=== PATIENT | male | born 1940 | race Caucasian/White ===

== ENCOUNTER 2016-05-20 14:07 | Inpatient (IN) | payer MEDICARE, OTHER ==
[~2016-05-20] VITALS: Ht 177.8 cm; Wt 111.0 kg
[~2016-05-20 14:07] MED LIST: CETI1TAB PO; CITA40TA13 PO; FRSM80T PO; POTA20TA7 PO; Piper-Tazo 3.375 Gm/50 mL D5W Minibag Plus - Q8H over 4 hrs IV ONE; Propofol 10,000 mCg/mL 20 mL Inj ONE; Rocuronium 10 mg/mL 5 mL Inj ONE; SIMV40TA5 PO; Succinylcholine Chloride 20 mg/mL 5 mL Inj ONE; Vancomycin Inj 1,750 MG in Dextrose 5% 500 ML IV ONE; [UNRECOGNIZED DRUG - CODE] PO; fentaNYL-PF 50 mCg/mL 2 mL Inj ONE
[2016-05-20 14:10] VITALS: BP 142/72; PULSE 104; RESP 32; O2SAT 95
--- NOTE | 2016-05-20 14:55 | ED.REPORT ---
HPI-Dyspnea / Wheezing Date of Service May 20, 2016 ED Provider: Asher Kincaid DO 75 year old male with a history of lung cancer treated with radiation, MAHNAZ on CPAP, diabetes and dyslipidemia who presents to the ER accompanied by family due to shortness of breath and fever that has been progressively worsening since last night. Yesterday he had a non-productive cough and multiple episodes of vomiting. Pt denies dysuria, diarrhea, chest pain and abd pain. Pt is a poor historian. Nursing Notes Stated Complaint: TROUBLE BREATHING Chief Complaint: Respiratory Distress Nursing Notes Reviewed: Yes Allergies: Coded Allergies: iodine (Verified Allergy, Severe, ANAPHYLAXIS, 05/20/16) Uncoded Allergies: Iodine (Allergy, Severe, ANAPHYLAXIS, 08/09/04) No Known Allergies (Allergy, Severe, 02/25/04) Scheduled Citalopram (Citalopram) 40 Mg Tablet 40 MG PO QAM Cyanocobalamin (Vitamin B-12) (Vitamin B-12) 2,000 Mcg Tablet 2,000 MCG PO DAILY Potassium Chloride ER (Klor-Con M20) 20 Meq Tablet 10 MEQ PO DAILY General Time Seen by MD: 14:52 Chief Complaint Shortness of breath Hx Obtained From: Patient, Other family... Arrived By: Walk-in Onset Occurred: Yesterday Symptom Duration: Since onset Location: : None Associated with: Reports: Cough, Vomiting Pertinent Negative: Relieved by nothing Past Medical History Past Medical History 1. Diabetes Type 2 2. Obstructive sleep apnea on CPAP 3. Dyslipidemia 4. Macular degeneration 5. Morbid obesity (BMI 54.4) 6. Former smoker 7. Depression 8. Hx of sepsis 9. Hx of pneumonia 10. 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 GI: Reports: Vomiting, Denies: Abdominal pain, Diarrhea Physical Exam Initial Vital Signs Vital Signs (First) Date Time Temp Pulse Resp B/P Pulse Ox O2 Delivery O2 Flow Rate FiO2 05/20/16 14:10 37.4 104 32 142/72 95 Room Air 05/20/16 15:57 2 Initial VS: Reviewed Head / Eyes: Atraumatic, Normocephalic, PERRL ENT: Mucous membranes moist, Conjunctiva normal, No scleral icterus Abdomen / GI: Soft, Non-tender, No distention Extremities: Vascular intact, Neuro intact Skin: Warm (warm to the touch), Dry, No cyanosis Neurologic: Alert, Oriented, Nonfocal General/Constitutional: Awake, Alert Distress / Hydration: Positive: Distress mild Neck: Atraumatic, Full range of motion tachypneic Diffusely diminished breath sounds Cardiovascular: Regular rhythm, No murmurs, Peripheral circulation NL Heart Rate / Rhythm: Positive: Tachycardia Interpretation & Diagnostics Lab Results Interpretation Result Diagram: 05/20/16 1455 05/20/16 1455 Test 05/20/16 14:55 05/20/16 16:52 White Blood Count 15.9th/mm3 (3.8-10.1) Red Blood Count 4.30mil/mm3 (4.40-5.80) Hemoglobin 12.3g/dL (13.8-17.2) Hematocrit 38.0% (41.0-50.0) Mean Corpuscular Volume 88.4fL (81-100) Mean Corpuscular Hemoglobin 28.6pg (27.0-35.0) Mean Corpuscular Hemoglobin Concent 32.4% (32.0-37.0) Red Cell Distribution Width 14.8% (12.3-15.4) Platelet Count 246bil/L (150-400) Neutrophils (%) (Auto) 89.1% (40-74) Lymphocytes (%) (Auto) 1.4% (14-46) Monocytes (%) (Auto) 9.1% (4-12) Eosinophils (%) (Auto) 0% (0-5) Basophils (%) (Auto) 0.1% (0-3) Sodium Level 128mEq/L (134-144) Potassium Level 4.0mEq/L (3.5-5.2) Chloride Level 93mEq/L (97-108) Carbon Dioxide Level 19mmol/L (18-29) Blood Urea Nitrogen 17mg/dL (8-27) Creatinine 1.63mg/dL (0.76-1.27) Estimat Glomerular Filtration Rate 44mL/min (>59) Glucose Level 144mg/dL (60-99) Calcium Level 8.9mg/dL (8.5-10.1) Total Bilirubin 0.9mg/dL (0.0-1.2) Aspartate Amino Transf (AST/SGOT) 19U/L (0-50) Alanine Aminotransferase (ALT/SGPT) 9U/L (0-44) Alkaline Phosphatase 76U/L (25-160) Troponin T < 0.010ug/L (0.0-0.011) Pro-B-Type Natriuretic Peptide 947.5pg/mL (0-486) Total Protein 7.0g/dL (6.4-8.4) Albumin 3.0g/dL (3.4-5.0) Procalcitonin 0.74ng/mL (0.00-0.08) Urine Color Dark yellow (YELLOW) Urine Appearance Slightly cloudy Urine pH 8.0 (5.0-8.0) Urine Specific [place] 1.015 (1.003-1.035) Urine Protein 30mg/dL (NEG,TRACE) Urine Glucose (UA) Negativemg/dL (NEGATIVE) Urine Ketones Negativemg/dL (NEGATIVE) Urine Occult Blood Small (NEGATIVE) Urine Nitrite Negative (NEGATIVE) Urine Bilirubin Negative (NEGATIVE) Urine Urobilinogen Normalmg/dL (NORMAL) Urine Leukocyte Esterase Large (NEGATIVE) Urine RBC 3-10/hpf (0-2) Urine WBC Packed/hpf (0-5) Urine Epithelial Cells Few/hpf (NONE-MOD) Urine Crystals Amorphous phosphates Urine Bacteria Moderate/hpf (NONE-FEW) Urine Hyaline Casts None/lpf (NONE) Urine Granular Casts None seen (NONE SEEN) Urine Waxy Casts None seen (NONE SEEN) Urine Red Blood Cell Casts None seen (NONE SEEN) Urine White Blood Cell Casts None seen (NONE SEEN) Urine Mucus None seen (None Seen) Urine Trichomonas None seen (NONE SEEN) Urine Yeast None (NONE SEEN) Urine Culture Reflexed Indicated General Lab Results Interp 1: Labs reviewed ECG Interpretation ECG Interpretation: Multiple premature complexes Inferior infarct, old Time: 14:43 Interpreted by: ED physician Rhythm / Conduction: Tachycardia (rate 100) X-Ray Chest Interpretation Chest Xray Interpretation: IMPRESSION: A cavitary mass in the right mid lung medially. No acute cardiopulmonary disease. Dictated by: Rick Salcedo M.D. on 05/20/2016 at 15:45 View: Portable, 1 view Interpretation / Wet Read by: Interpret - Radiologist CT Chest Interpretation IMPRESSION: 1. 3 mm right upper lobe pulmonary nodule which is demonstrated stability when compared to study dated 01/03/16. Which has demonstrated 5 months of stability. Please see followup guidelines below. 2. Decreased size of the right lower lobe superior segment gas-filled cavitary lesion when compared with the study dated 01/03/16. This finding suggests persistent communication with a subsegmental bronchus. 3. Trace air space opacities within the right middle lobe suggestive of aspiration or infection. 4. Findings suspicious for left hydronephrosis which is new when compared with the prior study. Renal ultrasound or CT KUB would be helpful to further characterize this finding if clinically indicated. Fleischner Society criteria for SOLID lung nodule followup. Nodule size (mm)Low-risk patientHigh-risk [id number] follow-up neededFollow-up at 12 mo; if no change, no further follow-up>[id number] CT at 12 mo; if no change, no further follow-up needed.Initial follow-up CT at 6-12 mo, then 18-24 mo if no change. >6-8Initial follow-up CT at 6-12 mo, then 18-24 mo if no change. Initial follow-up CT at 3-6 mo, then 9-12 mo and 24 mo if no change. >8Follow-up CT at 3, 9, 24 mo. Or PET and/or biopsy.Same as for low-risk pts. Fleischner Society criteria for SUB-SOLID lung nodule followup. Solitary pure ground-glass nodules5 mm or lessNo followup needed. >5 mm3 mo follow-up CT to confirm persistence. Then annual CT for 3 years. Part-solid nodules3 mo follow-up CT to confirm persistence. If persistent with solid component <5 mm, annual CT for at least 3 years. If solid component is 5 mm or more, biopsy or surgical resection. Consider PET-CT for lesions > 10 mm. Multiple sub-solid nodulesPure ground glass nodules [address] at 2 and 4 years. Pure ground glass nodules >5 mm without dominant lesion. [address] to confirm persistence, then annual followup CT for at least 3 years. Dominant nodule(s) with part-solid or solid component. [address] to confirm persistence. If persistent, consider biopsy or surgical resection, rambo if lesions have >5 mm solid component. Dictated by: Alma Burroughs M.D. on 05/20/2016 at 16:06 Study type: Chest CT no contrast Interpretation / Wet Read by: Interpret - Radiologist Re-Eval/Medical Decision Med Decision/Clinical Course Ultimately sepsis from UTI and obstructing kidney stone. Urology is consulted emergently and is planning at this point. The patient's operating room. Patient is admitted. Re-Evaluation/Progress #1: Time of Eval: 15:35 Re-Evaluation/Progress Note: Pt has not been hospitalized recently and has not taken antibiotics recently. Updated pt and family of labs, ECG and imaging results. Recommended admission for pneumonia. Pt understands and agrees with plan. All questions addressed. Re-Evaluation/Progress #2: Time of Eval: 16:40 Re-Evaluation/Progress Note: Updated of imaging results. Consultation #1: Referral / Consult Name: Luiz Dutton MD Consulted With: Hospitalist Call Returned at: 16:50 Fire Truck Driver: Will see patient, Agrees with eval, Agrees with plan, Accepts admit Consultation #2: Referral / Consult Name: Suzette Guevara MD Consulted With: Urology Call Returned at: 17:41 Fire Truck Driver: Requested OR ([id number]) [facility] Counseled Regarding: Diagnosis, Lab results, Need for admission Discharge & Departure Impression: Primary Impression: Sepsis Sepsis type: sepsis due to unspecified organism Qualified Code: A41.9 - Sepsis, unspecified organism Additional Impressions: URI (upper respiratory infection) URI type: unspecified URI Qualified Code: J06.9 - Acute upper respiratory infection, unspecified RODGER (acute kidney injury) UTI (urinary tract infection) Urinary tract infection type: site unspecified Hematuria presence: without hematuria Qualified Code: N39.0 - Urinary tract infection, site not specified Ureteral obstruction Pyelonephritis Disposition: ADMITTED TO HOSPITAL Discharge Condition All VS Reviewed: Yes Referrals: Shalom Noel MD (PCP) Crit Care Except Billable Proc Time Spent: 75-104 minutes Services Performed: Patient management by me, Time spent at bedside, Reviewing test results, Reviewing imaging, Discussing patient care, Documentation in record, Time with fam/surrogate Critical Care Notes: See MDM Scribe Attestation Portions of this note were transcribed by Alyce Simmons. I, (Dr. Asher Kincaid ) personally performed the history, physical exam and medical decision-making; I reviewed and confirmed the accuracy of the information in the transcribed note. Signed by: Alyce Simmons. Nikia, 05/20/2016, [id number] copies to: Shalom Noel MD, Timothy S DO May 20, 2016 14:55 Alyce Simmons May 20, 2016 15:06
[2016-05-20] MEDS ORDERED: 0.9% Sodium Chloride 1,000 ML IV ONE ×2 (15:05→15:55)
[2016-05-20 15:18] LABS: BASOPHILS % (AUTO) 0.1 % (0-3); EOSINOPHILS % (AUTO) 0 % (0-5); MONOCYTES % (AUTO) 9.1 % (4-12); Mean Corpuscular Hemoglobin 28.6 pg (27.0-35.0); Mean Corpuscular Volume 88.4 fL (81-100); NEUTROPHILS % (AUTO) 89.1 % (40-74); Platelet Count 246 bil/L (150-400)
[2016-05-20] MEDS ORDERED: cefTRIAXone Inj 2,000 MG in Dextrose 5% Minibag Plus 50 ML IV ONE (15:40)
[2016-05-20] MEDS ORDERED: Azithromycin Inj 500 MG in Dextrose 5% w/Vial Mate 250 ML IV ONE (15:40)
--- NOTE | 2016-05-20 15:48 | DRSVH ---
PROCEDURE: X-RAY CHEST ONE VIEW, PORTABLE ([id number]) INDICATIONS: shortness of breath TECHNIQUE: One view of the chest was acquired. COMPARISON: [facility], CT, CT CHEST WO CON, 01/03/2016, 16:48. [facility], CR, CHEST 1VW (PORTABLE), 03/26/2013, 2:12. FINDINGS: Surgical changes and devices: None. Lungs and pleura: There is a cavitary density in the right midlung medially, better seen on the [facility] CT on 2015. No pleural effusions or pneumothorax. Left lung is clear. Mediastinum: Mediastinal contours appear normal. Heart size is normal. Bones and chest wall: No suspicious bony lesions. Overlying soft tissues appear unremarkable. IMPRESSION: A cavitary mass in the right mid lung medially. No acute cardiopulmonary disease. Dictated by: Rick Salcedo M.D. on 05/20/2016 at 15:45 Approved by: Rick Salcedo M.D. on 05/20/2016 at 15:47
[2016-05-20] MEDS ORDERED: 0.9% Sodium Chloride 1,000 ML IV SCH ×2 (15:55→16:53)
[2016-05-20 15:57] VITALS: BP 107/46; PULSE 96; RESP 24; O2SAT 94
[2016-05-20 16:00] LABS: TROPONIN T < 0.010 ug/L (0.0-0.011)
--- NOTE | 2016-05-20 16:18 | DRSVH ---
PROCEDURE: CT CHEST WITHOUT CONTRAST ([id number]) INDICATIONS: cough, sputum, leukocytosis TECHNIQUE: Noncontrast 5 mm thick sections acquired from the pulmonary apices to the posterior costophrenic angl es. 7 mm thick coronal and sagittal MIP reformats were then acquired. For radiation dose reduction, the following was used: automated exposure control, adjustment of mA and/or kV according to patient size. COMPARISON: [facility], CT, CT CHEST WO CON, 01/03/2016, 16:48. FINDINGS: Image quality: Excellent. Lungs and pleura: An ill-defined 3 mm diameter pulmonary nodule is redemonstrated at the right apex u nchanged from the study dated 01/03/16 (series 3, image 13). The cavitary mass within the superior se gment of the right lower lobe has decreased in size and now measures 5.4 x 6.9 cm. This lesion measur ed 8.4 x 8.9 cm in the same plane on the study dated 01/03/16. There is persistent gas within this ca vitary lesion and communication with an adjacent bronchus is likely present. There is trace centrilob ular emphysema with an apical predominance. Trace air space opacities are present within the right mi ddle lobe which are new when compared with the prior study. No pneumothorax. There is a trace right p leural effusion which is new when compared with the prior study. Mediastinum: Heart size is normal. No pericardial effusion. No mediastinal adenopathy by size crit eria. Thoracic aorta and central pulmonary arteries are normal in size. Scattered atheromatous calci fications are present within the aortic arch. Esophagus is normal in caliber. No hiatal hernia. Bones and chest wall: No suspicious bony lesions. No vertebral body compression fractures. No axil clyde or supraclavicular adenopathy by size criteria. Thyroid gland is unremarkable. Abdomen: There is likely dilatation of the superior pole left renal collecting system which is a new finding when compared with the study date 01/03/16, but this is only partially characterized on this limited view of the abdomen. Visualized upper abdominal solid organs and bowel loops appear otherwis e normal in the absence of contrast. IMPRESSION: 1. 3 mm right upper lobe pulmonary nodule which is demonstrated stability when compared to study date d 01/03/16. Which has demonstrated 5 months of stability. Please see followup guidelines below. 2. Decreased size of the right lower lobe superior segment gas-filled cavitary lesion when compared w ith the study dated 01/03/16. This finding suggests persistent communication with a subsegmental bron chus. 3. Trace air space opacities within the right middle lobe suggestive of aspiration or infection. 4. Findings suspicious for left hydronephrosis which is new when compared with the prior study. Renal ultrasound or CT KUB would be helpful to further characterize this finding if clinically indicated. Fleischner Society criteria for SOLID lung nodule followup. Nodule size (mm)Low-risk patientHigh-risk [id number] follow-up neededFollow-up at 12 mo; if no magana e, no further follow-up>[id number] CT at 12 mo; if no change, no further follow-up needed.Initial f ollow-up CT at 6-12 mo, then 18-24 mo if no change. >6-8Initial follow-up CT at 6-12 mo, then 18-24 mo if no change. Initial follow-up CT at 3-6 mo, then 9-12 mo and 24 mo if no change. >8Follow-up CT at 3, 9, 24 mo. Or PET and/or biopsy.Same as for low-risk pts. Fleischner Society criteria for SUB-SOLID lung nodule followup. Solitary pure ground-glass nodules5 mm or lessNo followup needed. >5 mm3 mo follow-up CT to confirm persistence. Then annual CT for 3 years. Part-solid nodules3 mo follow-up CT to confirm persistence . If persistent with solid component <5 mm, annual CT for at least 3 years. If solid component is 5 mm or more, biopsy or surgical resection. Consider PET-CT for lesions > 10 mm. Multiple sub-solid nodulesPure ground glass nodules [address] at 2 and 4 years. Pure ground glass nodules >5 mm without dominant lesion. [address] to confirm persistence, then annual followup CT for at least 3 years. Dominant nodule(s) with part-solid or solid component. [address] to confirm persistence. If persistent, consider biopsy or surgical resection, rambo if lesions have >5 m m solid component. Dictated by: Alma Burorughs M.D. on 05/20/2016 at 16:06 Approved by: Alma Burroughs M.D. on 05/20/2016 at 16:17
[2016-05-20] MEDS ORDERED: Ondansetron 2 mg/mL 2 mL Inj IVPUSH PRN (16:55)
[2016-05-20] MEDS ORDERED: Alum-Mag Hydrox-Simeth 30 mL Suspension PO PRN ×2 (16:55→17:45)
[2016-05-20 17:19] LABS: COLOR,URINE DARK YELLOW (YELLOW)
[2016-05-20 17:20] LABS: APPEARANCE,URINE SLIGHTLY CLOUDY (CLEAR,HAZY); OCCULT BLOOD,URINE SMALL (NEGATIVE); UROBILINOGEN,URINE NORMAL (NORMAL)
--- NOTE | 2016-05-20 17:27 | DRSVH ---
PROCEDURE: CT KUB ([id number]) INDICATIONS: left hydronephrosis TECHNIQUE: Noncontrast 5 mm thick sections acquired from the diaphragms to the symphysis. 5 mm thick coronal an d sagittal reformats were then performed. For radiation dose reduction, the following was used: aut omated exposure control, adjustment of mA and/or kV according to patient size. COMPARISON: [facility], CT, CT CHEST WO CON, 05/20/2016, 15:55. [facility], CR, XR CHEST 1VW (PORTABLE), 05/20/2016, 15:11. FINDINGS: Image quality: Excellent. Lung bases: There are subpleural infiltrates and right basilar consolidation. Heart size is normal. Urinary system: There is a 14 x [address] density 585 HU in the proximal left ureter, proba onur a cystine stone. There is moderate left hydronephrosis and dilation of the left ureter proximal t o the stone. A 1.9 cm exophytic cyst is seen in the left kidney. There is a 4.5 cm parapelvic cyst in the right kidney. No right hydronephrosis. Both kidneys are normal in size mild bilateral perinephri c fat stranding. Bladder is concentrically thickened; no calcified bladder stones. Other solid organs: Liver and spleen are normal in size. Gallbladder is normal. Pancreas is normal in contours. No adrenal nodules. Peritoneum and bowel: Unenhanced bowel loops demonstrate normal wall thickness and caliber. No free fluid or air. Nodes and vessels: No retroperitoneal or mesenteric adenopathy by size criteria. Is mild fusiform di lation of the distal abdominal aorta measuring 3 cm. Moderate to severe atherosclerosis. Abdominal wall: No ventral hernias. Pelvis: No free pelvic fluid. No inguinal hernias or adenopathy. Bones: No suspicious bony lesions. No vertebral body compression fractures. IMPRESSION: 1. A 14 x 8 mm obstructive stone is present in the proximal left ureter causing moderate hydronephro sis. 2. Bilateral renal cysts. 3. Mild concentric thickening of urinary bladder. This finding may be secondary to cystitis or chroni c bladder outlet obstruction. Recommend clinical correlation. 4. Subpleural infiltrates and right basilar consolidation suspicious for pneumonia. 5. 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 Dictated by: Rick Salcedo M.D. on 05/20/2016 at 17:08 Approved by: Rick Salcedo M.D. on 05/20/2016 at 17:20
[2016-05-20] MEDS ORDERED: Albuterol 2.5 mg/3 mL Inhalation Solution NEB PRN (17:45)
[2016-05-20] MEDS ORDERED: Polyethylene Glycol (PEG) 17 Gm Powder PO PRN (17:45)
[2016-05-20 18:15] VITALS: BP 152/70; PULSE 101; RESP 36; O2SAT 96
--- NOTE | 2016-05-20 18:19 | PCM.HPMED ---
Subjective Date of Service May 20, 2016 Primary Provider: Admitting Physician: Luiz Dutton MD Primary Care Physician: Shalom Noel MD Attending Physician: Luiz Dutton MD Admit Status: From the Emergency Department Chief Complaint: Sepsis, RODGER Allergies Coded Allergies: iodine (Verified Allergy, Severe, ANAPHYLAXIS, 05/20/16) Uncoded Allergies: Iodine (Allergy, Severe, ANAPHYLAXIS, 08/09/04) No Known Allergies (Allergy, Severe, 02/25/04) PMH Social History Hx Alcohol Use: No Hx Substance Use: No Hx Tobacco Use: Yes (1.5 ppd x 15 years; quit 15-20 years ago) Smoking Status: Former Smoker Exam Vital Signs Vital Sign - Last Date Time Temp Pulse Resp B/P Pulse Ox O2 Delivery O2 Flow Rate FiO2 05/20/16 15:57 37.0 96 24 107/46 94 Nasal Cannula 2 Lab and Diagnostics Result Diagram: 05/20/16 1455 05/20/16 1455 ALEK LIVINGSTON DO May 20, 2016 18:19
[2016-05-20 18:28] VITALS: PULSE 108
[2016-05-20] MEDS ORDERED: Lactated Ringer's 1,000 ML IV ONE (19:27)
--- NOTE | 2016-05-20 19:58 | NUR ---
Arrived/Operating Room Arrived - Report was received by Saniya Schwartz RN the CCU/PCC charge nurse from Shruti Willingham RN in the ED. He arrived to [facility] 2024 at 1805. His vitals were taken, he was set up with telemetry, labs drawn, and Dr. Saxena assessed him and communicated with the family. Per Dr. Saxena's orders he was placed on contact and neutropenic precautions. He was very confused and kept trying to slide himself and his legs over the bed even when instructed not to. He was not making sense as he was mixing up his words. A NEWSPAPER DISTRIBUTOR SUPERVISOR stayed at his bedside to keep him from getting out and a Henri alarm was placed on him. He reported no pain, but later mentioned something about his back hurting. Operating Room - Dr. Guevara called and spoke with the daughter (CARLA) about taking him to emergency surgery as he had a 3 cm stone in his ureter. The daughter agreed and then Dr. Guevara spoke to this nurse and got report. BROOKE Contreras from the OR called to get report from this nurse. The consent was signed by the daughter and this nurse, but had not been signed by Dr. Geuvara yet. It was noted and communicated between the OR nurse and this nurse that he is claustrophobic, had a few sips of a smoothie about 1400 (last food intake), has had anesthesia reactions in the past, and will be intubated in the OR and remain so during the night. He was taken from [facility] 2024 at 1915 by OR staff for go to the OR. His family went with him. Unable to do a head-to-toe assessment the patient before he left. Belongings left in the room. editorial cartoonist report given to BROOKE Etienne in the CCU. Care continues.
[2016-05-20] MEDS ORDERED: Glucose 40% Oral Gel 15 Gm Tube PO PRN (20:05)
--- NOTE | 2016-05-20 20:07 | PCM.HPANE ---
Patient Data Surgeon Admitting Provider:Luiz Dutton MD Attending Provider:Luiz Dutton MD Primary Care Physician:Shalom Noel MD Other Provider: Reason for Visit Sepsis,Uri,Esvin Ht/WT & BMI Weight (Kilograms): 122.73 Body Mass Index Allergies Coded Allergies: iodine (Verified Allergy, Severe, ANAPHYLAXIS, 05/20/16) Uncoded Allergies: Iodine (Allergy, Severe, ANAPHYLAXIS, 08/09/04) No Known Allergies (Allergy, Severe, 02/25/04) Past Anesthesia History Anesthesia History: Positive for:: Anesthesia Reactions (BECOMES VILENT WHILE BECOMING SEDATED) Diabetes History Hx Diabetes?: Yes MRSA MRSA: No Medications Hypertension Medication: No Home Meds Incl Beta Sigrid: No Reported Medications Cyanocobalamin (Vitamin B-12) (Vitamin B-12)2,000 Mcg Tablet2,000 Mcg PO DAILY 01/03/16 Citalopram 40 Mg [id number] Mg PO QAM 01/03/16 Potassium Chloride ER (Klor-Con M20)20 Meq Imarxj21 Meq PO DAILY 01/03/16 Discontinued Reported Medications Cetirizine HCl/Pseudoephedrine (Allergy+Congestion Relf-D Tab)5 Mg-120 Mg Tab.er.12h1 Each PO BID PRN allergy 01/03/16 Simvastatin 40 Mg Vhequc95 Mg PO DAILY 01/03/16 Furosemide 80 Mg Tab80 Mg PO DAILY 01/03/16 History History of ENT Problems?: Yes HEENT History: Positive for:: Cataracts (s/p surgical removal) Denies:: Glaucoma (macular degeneration) Hx of Heart Problems?: Yes Cardiovascular History: Positive for:: Hypertension Denies:: Congestive Heart Failure Other Cardiac History: HLD Hx of Respiratory Problem?: Yes Respiratory History: Positive for:: Dyspnea Pneumonia (hx lung ca treated with radiation) Denies:: Tuberculosis Other Resp Pertinent History: hx MAHNAZ, not using CPAP (recently lost a lot of wt.due to chemotx) Hx Neurologic Problems?: Yes (very confused at evaluation, A&O X0) Hx of GI Problems?: No Hx of Problems?: Yes Genitourinary History: Positive for:: Kidney Stones (sepsis) Urinary Tract Infection Male Hx: Denies:: Prostate Problems Scrotal Mass Testicular Surgery Hx Musculoskeletal Problems?: Yes Musculoskeletal History: Positive for:: Joint Replacement (BILAT KNEES) Hx of Psycho/Social Problems?: Yes Psycho Social History: Positive for:: Hx Depression Hx Surgeries?: Yes (bilat.cataracts, bilat.knees, lt.eyelid, tonsillectomy) Hx Any Other Health Problems?: Yes Other History: Positive for:: Cancer (hx lung ca) Hospitalization Denies:: Thyroid Disease History Blood Transfusions: Denies:: Blood Transfusions Hx Diabetes: Yes Hx Alcohol Use: NoHx Substance Use: No Smoking Status: Former Smoker Have You Smoked inLast 12 mo: No Stop/Bang Treated for Sleep Apnea?: Yes Do You Have a CPAP Machine?: Yes (pt refuses to use cpap, per family) S-Snoring: Do You Snore Loudly: Yes T-Tired: feel tired, fatigued: Yes O-Obsered: Observed not breath: No P-Blood Pressure: treated: No B- Body Mass Index > 35 kg/m2: No A- Age over 50: Yes N- Neck Large Circumference: No G- Gender Male: Yes MAHNAZ Total Score: 3 MAHNAZ Risk Assessment: High Risk, =/>3 Yes Risk Assessment Category Category 1A: Patient has history of documented sleep apnea, and HAS NOT received any narcotic, sedative or anesthesia administration during this stay. Category 1B: Patient has history of documented sleep apnea, and HAS received any narcotic , sedative or anesthesia administration during this stay Category 2: Patient has SUSPECTED Obstructive Sleep Apnea, and HAS received any narcotic , sedative or anesthesia administration during this stay. Category 3: Patient has SUSPECTED Obstructive Sleep Apnea and HAS NOT received narcotic, sedative or anesthesia administration during this stay. Category 4: Outpatient in Procedural Areas with known sleep apnea or who screen positive for High Risk via the STOP/BANG questionnaire. Exam Exam Vital Signs Vital Signs Date Time Temp Pulse Resp B/P Pulse Ox O2 Delivery O2 Flow Rate FiO2 05/20/16 18:28 108 05/20/16 18:15 37.0 101 36 152/70 96 Nasal Cannula 1.00 05/20/16 15:57 37.0 96 24 107/46 94 Nasal Cannula 2 05/20/16 14:10 37.4 104 32 142/72 95 Room Air General Appearance: Other (Not oriented to self) HEENT/AIRWAY: Other (unable to assess as patient not cooperative) Lungs: Clear to Auscultation, Normal Air Movement Heart: Exam Unremarkable, Regular Rate/Rhythm, No Murmurs/Rubs/Gallops Meds/Labs/Diagnostics Admission Meds Current Medications Sodium Chloride 1,000 ml @ 0 mls/hr Q0M ONCE IV Last administered on 05/20/16 15:38; Start 05/20/16 at 15:05; Stop 05/20/16 at 15:06; Status DC Ceftriaxone Sodium 2000 mg/ Dextrose/Water 50 ml @ 100 mls/hr ONCE ONCE IV Last administered on 05/20/16 16:10; Start 05/20/16 at 15:40; Stop 05/20/16 at 16: 09; Status DC Azithromycin 500 mg/Dextrose/Water 250 ml @ 250 mls/hr ONCE ONCE IV Last administered on 05/20/16 17:06; Start 05/20/16 at 15:40; Stop 05/20/16 at 16:39; Status DC Sodium Chloride (Normal Saline) 1,000 ml @ 0 mls/hr Q0M ONCE IV Last administered on 05/20/16 17:06; Start 05/20/16 at 15:55; Stop 05/20/16 at 15:56; Status DC Labs Test 05/20/16 14:55 05/20/16 16:52 05/20/16 18:24 White Blood Count 15.9th/mm3 (3.8-10.1) Red Blood Count 4.30mil/mm3 (4.40-5.80) Hemoglobin 12.3g/dL (13.8-17.2) Hematocrit 38.0% (41.0-50.0) Mean Corpuscular Volume 88.4fL (81-100) Mean Corpuscular Hemoglobin 28.6pg (27.0-35.0) Mean Corpuscular Hemoglobin Concent 32.4% (32.0-37.0) Red Cell Distribution Width 14.8% (12.3-15.4) Platelet Count 246bil/L (150-400) Neutrophils (%) (Auto) 89.1% (40-74) Lymphocytes (%) (Auto) 1.4% (14-46) Monocytes (%) (Auto) 9.1% (4-12) Eosinophils (%) (Auto) 0% (0-5) Basophils (%) (Auto) 0.1% (0-3) Sodium Level 128mEq/L (134-144) Potassium Level 4.0mEq/L (3.5-5.2) Chloride Level 93mEq/L (97-108) Carbon Dioxide Level 19mmol/L (18-29) Blood Urea Nitrogen 17mg/dL (8-27) Creatinine 1.63mg/dL (0.76-1.27) Estimat Glomerular Filtration Rate 44mL/min (>59) Glucose Level 144mg/dL (60-99) Calcium Level 8.9mg/dL (8.5-10.1) Total Bilirubin 0.9mg/dL (0.0-1.2) Aspartate Amino Transf (AST/SGOT) 19U/L (0-50) Alanine Aminotransferase (ALT/SGPT) 9U/L (0-44) Alkaline Phosphatase 76U/L (25-160) Troponin T < 0.010ug/L (0.0-0.011) Pro-B-Type Natriuretic Peptide 947.5pg/mL (0-486) Total Protein 7.0g/dL (6.4-8.4) Albumin 3.0g/dL (3.4-5.0) Procalcitonin 0.74ng/mL (0.00-0.08) Urine Color Dark yellow (YELLOW) Urine Appearance Slightly cloudy Urine pH 8.0 (5.0-8.0) Urine Specific [place] 1.015 (1.003-1.035) Urine Protein 30mg/dL (NEG,TRACE) Urine Glucose (UA) Negativemg/dL (NEGATIVE) Urine Ketones Negativemg/dL (NEGATIVE) Urine Occult Blood Small (NEGATIVE) Urine Nitrite Negative (NEGATIVE) Urine Bilirubin Negative (NEGATIVE) Urine Urobilinogen Normalmg/dL (NORMAL) Urine Leukocyte Esterase Large (NEGATIVE) Urine RBC 3-10/hpf (0-2) Urine WBC Packed/hpf (0-5) Urine Epithelial Cells Few/hpf (NONE-MOD) Urine Crystals Amorphous phosphates Urine Bacteria Moderate/hpf (NONE-FEW) Urine Hyaline Casts None/lpf (NONE) Urine Granular Casts None seen (NONE SEEN) Urine Waxy Casts None seen (NONE SEEN) Urine Red Blood Cell Casts None seen (NONE SEEN) Urine White Blood Cell Casts None seen (NONE SEEN) Urine Mucus None seen (None Seen) Urine Trichomonas None seen (NONE SEEN) Urine Yeast None (NONE SEEN) Urine Culture Reflexed Indicated Lactic Acid Level 2.8mmol/L (0.4-2.0) Plan Impression Patient chart reviewed, patient interviewed and anesthestic plan with risks, benefits, and alternatives discussed, and informed consent obtained. ASA Physical Status: ASA4 Plus Emergency Anesthetic Support Modalities: [place] Scope, Arterial Line, Central Line Anesthetic Plan: GA, Postop Vent (airway protection, acute sepsis, MAHNAZ, altered mental status) Bene/Risks/Altern/Consents: Yes HP Complete Prior to Induction: Yes Joel Humphrey MD May 20, 2016 19:03
--- NOTE | 2016-05-20 20:12 | PCM.HPMED ---
Subjective Date of Service May 20, 2016 Primary Provider: Admitting Physician: Luiz Dutton MD Primary Care Physician: Shalom Noel MD Attending Physician: Luiz Dutton MD Chief Complaint: Sepsis, RODGER, urinary tract obstruction, shortness of breath, possible pneumonia History of Present Illness: 75-year-old male with past mental history of lung cancer treated with radiation and chemotherapy per family, diabetes mellitus type II, MAHNAZ on CPAP, dyslipidemia, presented to the ED from home with family present secondary to shortness of breath and fever 3 days. Patient is not currently mentating at baseline he is "a little off" per family who is present at the time of exam and interview. Per family since 05/18/2016 patient has had a "chest cold" with a productive cough this is accompanied with a back ache. Overall he stated to his family that he was not feeling good. Patient's reports that she has not noticed any hematuria, though has endorsed fevers at home no temperature was taken. In the emergency department vital signs were found to be 142/72 pulse rate 104, respiratory rate 32, temperature 37.4. Labs white count of 15.9, lactic acid of 3.7. Calcitonin 0.74. Patient was started on azithromycin and ceftriaxone. CT KUB showed 10 x 8 mm obstructing stone in the left ureter causing moderate hydronephrosis. Urology consult, patient scheduled or emergency surgery this evening for removal of obstructing stone. Review of Systems: Review of systems: When asked patient states he feels fine though per family present in the room he is not mentating at baseline. He states he is not currently in any pain. Allergies Coded Allergies: iodine (Verified Allergy, Severe, ANAPHYLAXIS, 05/20/16) Home Medications Home medications per med rec: Citalopram 40 mg every morning Senna bowel movement 2 g daily Potassium chloride 10 mEq daily PMH 1. Diabetes Type 2 2. Obstructive sleep apnea on CPAP 3. Dyslipidemia 4. Macular degeneration 5. Morbid obesity (BMI 54.4) 6. Former smoker 7. Depression 8. Hx of sepsis 9. Hx of pneumonia Surgical History Bilateral Cataracts Bilateral knee surgery Left eyelid surgery Tonsillectomy Family History Family history noncontributory Social History Hx Alcohol Use: No Hx Substance Use: No Hx Tobacco Use: Yes (1.5 ppd x 15 years; quit 15-20 years ago) Smoking Status: Former Smoker Living Arrangement: with Family Exam Vital Signs Vital Sign - Last Date Time Temp Pulse Resp B/P Pulse Ox O2 Delivery O2 Flow Rate FiO2 05/20/16 15:57 37.0 96 24 107/46 94 Nasal Cannula 2 Exam General: Obese male laying in bed in mild/moderate distress diaphoretic. Appropriately interactive though reportedly not mentating at baseline. HEENT: Normocephalic, atraumatic. External ears without defect. Pupils equal, round, and reactive to light and accommodation. Neck: Supple with full range of motion. No jugular venous distension. No bruits. Cardiovascular: Tachycardic rate with regular rhythm no murmurs appreciated. Pulmonary: Tachypneic with diffusely diminished breath sounds no crackles or wheezes appreciated. No use of accessory muscles Abdomen: Bowel tones present. Obese abdomen. Soft, nontender to palpation 4 quadrants. No flank pain bilaterally. Extremities: Mild lower extremity edema extending to ankle. Skin: Warm to palpation, normal turgor and texture. Diaphoresis on forehead. Neurological: Cranial nerves grossly intact. Alert and oriented able to answer questions appropriately Lab and Diagnostics Result Diagram: 05/20/16 1455 05/20/16 1455 X-Rays, CTs and MRIs . X-RAY CHEST ONE VIEW, PORTABLE IMPRESSION: A cavitary mass in the right mid lung medially. No acute cardiopulmonary disease. Dictated by: Rick Salcedo M.D. on 05/20/2016 at 15:45 CT CHEST WITHOUT CONTRAST IMPRESSION: 1. 3 mm right upper lobe pulmonary nodule which is demonstrated stability when compared to study dated 01/03/16. Which has demonstrated 5 months of stability. Please see followup guidelines below. 2. Decreased size of the right lower lobe superior segment gas-filled cavitary lesion when compared with the study dated 01/03/16. This finding suggests persistent communication with a subsegmental bronchus. 3. Trace air space opacities within the right middle lobe suggestive of aspiration or infection. 4. Findings suspicious for left hydronephrosis which is new when compared with the prior study. Renal ultrasound or CT KUB would be helpful to further characterize this finding if clinically indicated. Fleischner Society criteria for SOLID lung nodule followup. Nodule size (mm)Low-risk patientHigh-risk [id number] follow-up neededFollow-up at 12 mo; if no change, no further follow-up>[id number] CT at 12 mo; if no change, no further follow-up needed.Initial follow-up CT at 6-12 mo, then 18-24 mo if no change. >6-8Initial follow-up CT at 6-12 mo, then 18-24 mo if no change. Initial follow-up CT at 3-6 mo, then 9-12 mo and 24 mo if no change. > 8Follow-up CT at 3, 9, 24 mo. Or PET and/or biopsy.Same as for low-risk pts. Fleischner Society criteria for SUB-SOLID lung nodule followup. Solitary pure ground-glass nodules5 mm or lessNo followup needed. >5 mm3 mo follow-up CT to confirm persistence. Then annual CT for 3 years. Part-solid nodules3 mo follow-up CT to confirm persistence. If persistent with solid component <5 mm, annual CT for at least 3 years. If solid component is 5 mm or more, biopsy or surgical resection. Consider PET-CT for lesions > 10 mm. Multiple sub-solid nodulesPure ground glass nodules [address] at 2 and 4 years. Pure ground glass nodules >5 mm without dominant lesion. [address] to confirm persistence, then annual followup CT for at least 3 years. Dominant nodule(s) with part-solid or solid component. [address] to confirm persistence. If persistent, consider biopsy or surgical resection, rambo if lesions have >5 mm solid component. Dictated by: Alma Burroughs M.D. on 05/20/2016 at 16:06 CT KUB IMPRESSION: 1. A 14 x 8 mm obstructive stone is present in the proximal left ureter causing moderate hydronephrosis. 2. Bilateral renal cysts. 3. Mild concentric thickening of urinary bladder. This finding may be secondary to cystitis or chronic bladder outlet obstruction. Recommend clinical correlation. 4. Subpleural infiltrates and right basilar consolidation suspicious for pneumonia. 5. 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 Dictated by: Rick Salcedo M.D. on 05/20/2016 at 17:08 Assessment & Plan Mr. Roldan is a 75-year-old male with past medical history of lung cancer treated with radiation and chemotherapy per family, diabetes mellitus type II, MAHNAZ on CPAP, dyslipidemia, admitted for sepsis with the underlying cause is likely hydronephrosis secondary to obstructing ureteral stone. Patient may also have a concomitant pneumonia. Hospital day 1. 1. Severe Sepsis. Present on admission. Ongoing - Sepsis criteria met with pulse rate 104, respiratory rate 32. White blood cell count 15.9. Lactic acid 3.7. - Probable source hydronephrosis secondary to obstructing ureteral stone - Concern for possible pneumonia - Patient received 2 L fluid in ED - Continue normal saline 100 mL/hr - Patient given one-time dose azithromycin and ceftriaxone in the ED, we will continue - Lactic acid trending down last night 2.8, will continue to monitor - Urology consult in, patient scheduled for surgery this evening - Appropriate cultures and serologies pending 2. Hydronephrosis. Present on admission. Ongoing - CT KUB showed a 14 x 8 mm obstructive stone in the proximal left ureter - Dr. Guevara urology consultation as in #1 - Nothing by mouth secondary to pending surgery this evening - Continue antibiotics as in #1 3. Concern for pneumonia. Present on admission. Ongoing - CT showed Trace air space opacities within the right middle lobe suggestive of aspiration or infection. - White count as in #1 - Pro calcitonin 0.74 - Antibiotics as in #1 - Patient scheduled to be intubated prior to surgery, per urology she will remain intubated overnight - ABGs and chest x-ray ordered for a.m. 4. Acute kidney injury. Present on admission. Ongoing - Creatinine on admission 1.63 - Most likely secondary to #2 - Continue IV fluids - Monitor ins and outs 5. Hyponatremia. Present on admission. Ongoing - Most likely secondary to #2 - Continue to monitor 6. Encephalopathy. Present on admission. Ongoing - Most likely secondary to infectious state - Antibiotics as in #1 - Continue to monitor 7. Diabetes mellitus type II. Present on admission. Ongoing - No diabetes medication mentioned in med rec - Last A1c to 11/04/2013 5.6, repeat A1c pending - low dose correctional scale insulin 8. Lung cancer. Present on admission. Ongoing - CT showed cavitary lesion, decreased in size from previous study and right upper lobe pulmonary nodule, stable when compared to previous study - Reportedly finished chemotherapy and/or radiation treatment 30 days prior. Tomorrow was 30 day check up from last cancer treatment. - Follow up with outpatient records 9. Abdominal aortic aneurysm. Present on admission. Ongoing - Incidental CT finding showed a 3 cm in diameter aneurysm of distal abdominal aorta. As well as moderate severe atherosclerosis. - Recommend follow-up and monitoring as outpatient 10. Possible morbid obesity. Present on admission. Ongoing - Patient's weight 122.73 kg, unknown height. DVT prophylaxis: Hold heparin secondary to pending surgery. SCDs in the interim Patient Status: Patient was admitted under inpatient status with expected length of stay greater than two midnights due to severity of presenting symptoms , risk of adverse event, and complexity of treatment plan. Pain Evaluation: Adequate Pain Control VTE Prophylaxis: SCDs Resuscitation Status: CPR: Attempt Resuscitation Attending Statement The patient was seen and examined together with Dr. Saxena on 05/20/2016 and I agree with the history, exam and plan as outlined in the note above. . copies to: Shalom Noel MD, GILES A DO May 20, 2016 18:18 Luiz Dutton MD May 23, 2016 18:01
[2016-05-20 21:00] VITALS: BP 140/50; PULSE 88; RESP 20; O2SAT 100
--- NOTE | 2016-05-20 21:22 | PCM.ANEP1 ---
Post Anesthesia Phase 1 PACU Phase 1 Assessment Vital Signs Vital Signs Date Time Temp Pulse Resp B/P Pulse Ox O2 Delivery O2 Flow Rate FiO2 05/20/16 18:28 108 05/20/16 18:15 37.0 101 36 152/70 96 Nasal Cannula 1.00 05/20/16 15:57 37.0 96 24 107/46 94 Nasal Cannula 2 05/20/16 14:10 37.4 104 32 142/72 95 Room Air Anesthetic Administered: GA Level of Alertness: Drowsy, not talking HENRIQUEZ's with Equal Strength: No Pain: No Nausea or Vomiting: No Airway Device: Endotrachial Tube Oxygen Delivery: Mechanical Ventilator Lungs: Clear to Auscultation, Normal Air Movement Summary CCU VS: BP 134/60 SpO2: 100% HR :93 T: 38.5 Sedated, intubated Joel Humphrey MD May 20, 2016 21:22
[2016-05-20] MEDS ORDERED: Propofol 10,000 mCg/mL 100 mL Inj ONE (21:23)
--- NOTE | 2016-05-20 21:44 | CONS ---
[address] [address] CONSULTATION REPORT PATIENT: DAVION DAVIDSON : 1940 MR#: [id number] ADMIT: 05/20/2016 JOB ID: [id number] DATE OF SERVICE: 05/20/2016 CHIEF COMPLAINT: Sepsis with a large left ureteral stone. HISTORY OF PRESENT ILLNESS: The patient is a 75-year-old gentleman with multiple medical problems, including diabetes, obesity and history of lung cancer as well as dementia. He presented with dyspnea and subjective fevers and chills. Ultimately, his workup in the emergency department revealed that he had a 1.4 x 8 mm left ureteral stone in the proximal ureter with moderate hydronephrosis. His creatinine was 1.7 and his white count was 16. His lactic acid was 3. His temperature in the emergency department was as high as 37.4. PAST MEDICAL HISTORY: As per history of present illness. SOCIAL HISTORY: He is . His is not fluent in [place]; however, his adult daughter, Tisha Everett, is his durable power of steam setter and is fluent in [place]. The patient does not make his medical decisions secondary to his dementia. REVIEW OF SYSTEMS: Pertinent for subjective fever and chills and tachypnea. PHYSICAL EXAMINATION: He is an elderly-appearing male who appears somewhat ill. He is well nourished and morbidly obese. HEENT: Atraumatic normocephalic. Neck is supple. Abdomen is obese, soft, and nontender. Extremities demonstrate no cyanosis, clubbing, or edema. Cranial nerves 2-12 grossly intact. Psych: He is cooperative and alert. His labs were aforementioned. Personal review of his CT images demonstrate [id number] perinephric stranding on the left as well as moderate hydronephrosis. There is a large and long stone consistent with the CT report measurements of 1.4 x 8 mm stone in the proximal ureter. IMPRESSION: A 75-year-old man with a left ureteral obstructing ureteral stone. PLAN: I discussed with the patient's daughter over the phone the nature of the problem of obstructing stone in the setting of presumed urinary tract infection. He has high white count. He presented with tachycardia and tachypnea and a lactic acid of 3. It was discussed with her options though I strongly recommended cystoscopy and ureteral stent placement to decompress the left kidney. We discussed the nature of cystoscopy and left ureteral stent placement as well as attendant risks as well as benefits. She wished to proceed and signed the consent. YINKA
[2016-05-20] MEDS: 0.9% Sodium Chloride 1,000 ML IV SCH (21:49)
[2016-05-20] MEDS ORDERED: fentaNYL-PF 50 mCg/mL 2 mL Inj IV PRN (21:50)
[2016-05-20] MEDS: Insulin LISPRO 300 Unit/3 mL Inj SUBQ SCH (22:00)
--- NOTE | 2016-05-20 22:03 | DRSVH ---
PROCEDURE: X-RAY CHEST ONE VIEW, PORTABLE ([id number]) INDICATIONS: et TUBE /central LINE PACEMENT TECHNIQUE: One view of the chest was acquired. COMPARISON: [facility], CR, XR CHEST 1VW (PORTABLE), 05/20/2016, 15:11. FINDINGS: Surgical changes and devices: The endotracheal tip is 4.3 cm above josi. There is a nasogastric tub e with the tip just beyond the GE junction. A right IJ central line is noted with the tip in the area of SVC. Lungs and pleura: There is a cavitary lesion in the right perihilar region. Bilateral interstitial i nfiltrates and left basilar consolidation. There is a small left effusion. No pneumothorax. Mediastinum: Mediastinal contours appear normal. Heart size is normal. Bones and chest wall: No suspicious bony lesions. Overlying soft tissues appear unremarkable. IMPRESSION: 1. The endotracheal tube is 4.3 cm above josi. 2. Nasogastric tube tip is just beyond the GE junction. 3. Right IJ central line tip in the area of SVC. Dictated by: Rick Salcedo M.D. on 05/20/2016 at 21:58 Approved by: Rick Salcedo M.D. on 05/20/2016 at 22:01
[2016-05-20] MEDS: fentaNYL 2,500 mCg/250 mL IV Premix IV SCH (22:04)
[2016-05-20 22:20] VITALS: BP 159/57; O2SAT 100
--- NOTE | 2016-05-20 22:36 | PCM.ANEP2 ---
Post Anesthesia Evaluation ASA/CMS Post Anesthesia VS in Patient's Normal Range?: Yes Resp Stable; Airway Patent?: Yes (intubated, sedated) CV Function & Hydration Stable: Yes Mental Status Recovered?: No (sedated) Pain control Satisfactory?: Yes N/V Control Satisfactory?: Yes Joel Humphrey MD May 20, 2016 22:36
--- NOTE | 2016-05-20 23:21 | OP ---
[address] [address] OPERATIVE REPORT PATIENT: DAVION DAVIDSON : 1940 MR#: [id number] ADMIT: 05/20/2016 JOB ID: [id number] DATE OF SURGERY: 05/20/2016 PREOPERATIVE DIAGNOSIS(ES): 1. Sepsis. 2. Left ureteral stone. POSTOPERATIVE DIAGNOSIS(ES): 1. Sepsis. 2. Left ureteral stone. PROCEDURE PERFORMED: 1. Urethral dilation. 2. Cystoscopy and left retrograde pyelogram. 3. Left ureteral stent placement. 4. Mason catheter placement SURGEON: Suzette Guevara MD. MAINTENANCE DIRECTOR: None. FINDINGS: 1. Purulent urine evacuated from the left kidney upon cannulation with stent. 2. Inadequate urethral meatus. 3. During his time in the OR, his temperature became 38.5 and later 39.4 at the initiation of the procedure. ANESTHESIA: General. ESTIMATED BLOOD LOSS: None. DRAINS: 1. A 6 x 28 left double-J ureteral stent. 2. An 18-Guinean coude catheter to the bladder. COMPLICATIONS: None. CONDITION: Stable. INDICATIONS: The patient is a 75-year-old gentleman who presented to the emergency department with dyspnea. He was ultimately found to be septic and likely due to an obstructing left proximal ureteral stone that was 14 x 8 mm. DESCRIPTION OF PROCEDURE: After informed consent was obtained, the patient was taken to the operating room. A time-out was performed, identifying correct patient, surgical site, and procedure. General anesthesia was smoothly induced. An arterial line was placed by the anesthesiologist, Dr. Joel Humphrey. The patient was then placed in lithotomy position. All pressure points were identified and appropriately padded. He was given intravenous antibiotics prior to arriving to the operating room. His genitals were then prepped and draped in usual sterile fashion. It was attempted to cannulate the urethral meatus with a 22-Guinean cystoscope, however, the urethra was found to be small. Gregg sounds were used to dilate just the meatus from 18 to 26-Guinean with Gregg sounds. The 22-Guinean cystoscope was then easily advanced from the urethral meatus into the bladder. The bladder was drained. The bladder appeared to be hyperemic. The left ureteral orifice was seen in orthotopic position. It was cannulated with a Sensor Tip wire. It was unclear if the wire was in the renal pelvis. Stone was not visualized on fluoroscopy. A 5-Guinean open-ended Pollack catheter was loaded over the wire. The wire was subsequently removed. Retrograde pyelogram was performed. There was moderate hydronephrosis. The Pollack was then recannulated with a Sensor Tip wire which was advanced to the renal pelvis seen under fluoroscopy and verified with retrograde pyelogram. A 6 x 28 double-J ureteral stent was loaded over it and advanced into the renal pelvis as seen under fluoroscopy. The wire was then removed leaving a nice coil in the bladder. There was purulent urine seen emanating from the kidney after the stent was placed. The bladder was drained. The cystoscope was then removed from the patient's body. An 18-Guinean coude catheter was easily advanced into patient's bladder. It was inflated with 10 cc of sterile water and set to dependent drainage. [facility]
[2016-05-20] MEDS ORDERED: Acetaminophen IV 1,000 MG in IV Premix 1 EACH IV PRN (23:45)
--- NOTE | 2016-05-20 23:47 | ABG ---
DateTimeAnalyzed 23:43:00 -_ pH ____7.520 - 7.350 7.450 pCO2 ___27.1__ -mmHg 35.0 45.0 pO2 228 -mmHg 69.0 116 HCO3- ___22.0__ -mmol/L 22.0 26.0 ABE ____0.4__ -mmol/L -2.0 2.0 tHb ___12.0__ -g/dL O2Hb ___97.9__ -% COHb ____1.1__ -% MetHb ____0.9__ -% sO2 ___99.9__ -% 25.0 FIO2 ___80.0__ -% PRVC 628 - PEEP ____5.0__ -cmH2O Set_RR ___20.0__ -b/min Vt __550.0__ -L Drawn By RB - Date/Time Notified____ 23:46:00 -_ Spontaneous_RR ___20.0__ -b/min Oxygen Device 1 VENTILATOR - Notified By RB - Notified Whom BRIANNA M RN - B 752 -mmHg tO2 ___16.9__ -Vol% Bj test N/A -
[2016-05-20] MEDS ORDERED: 0.9% Sodium Chloride 500 ML IV PRN (23:50)
[2016-05-21] VITALS (12 sets, daily range): BP systolic 110–146; BP diastolic 51–67; PULSE 58–76; RESP 16; O2SAT 95–100
[2016-05-21] MEDS: Chlorhexidine 0.12% 15 mL Oral Solution MT SCH ×6 (00:32→20:21)
[2016-05-21] MEDS ORDERED: Piper-Tazo 3.375 Gm/50 mL D5W Minibag Plus - Q8H over 4 hrs IV ONE ×2 (01:00)
[2016-05-21] MEDS ORDERED: Vancomycin Inj 1,750 MG in Dextrose 5% 500 ML IV ONE (01:00)
[2016-05-21] MEDS: Norepinephrine 8,000 mCg/250 mL D5W Premix IV PRN (02:14)
[2016-05-21] MEDS: 0.9% Sodium Chloride 1,000 ML IV SCH ×3 (02:19→22:22)
--- NOTE | 2016-05-21 05:01 | ABG ---
DateTimeAnalyzed 04:57:00 -_ pH ____7.465 - 7.350 7.450 pCO2 ___29.9__ -mmHg 35.0 45.0 pO2 113 -mmHg 69.0 116 HCO3- ___21.2__ -mmol/L 22.0 26.0 ABE ___-1.3__ -mmol/L -2.0 2.0 tHb ___11.8__ -g/dL O2Hb ___97.1__ -% COHb ____0.9__ -% MetHb ____0.9__ -% sO2 ___98.9__ -% 25.0 FIO2 ___40.0__ -% PRVC 628 - PEEP ____5.0__ -cmH2O Set_RR ___20.0__ -b/min Vt __550.0__ -L Drawn By RB - Date/Time Notified____ 05:00:00 -_ Spontaneous_RR ___16.0__ -b/min Oxygen Device 1 VENTILATOR - Notified By RB - Notified Whom BRIANNA M, RN - B 749 -mmHg tO2 ___16.2__ -Vol% Bj test N/A -
[2016-05-21 05:42] LABS: BASOPHILS % (AUTO) 0.1 % (0-3); EOSINOPHILS % (AUTO) 0.2 % (0-5); MONOCYTES % (AUTO) 5.1 % (4-12); Mean Corpuscular Hemoglobin 28.8 pg (27.0-35.0); Mean Corpuscular Volume 88.4 fL (81-100); Platelet Count 210 bil/L (150-400)
[2016-05-21 06:37] LABS: Magnesium 1.3 mg/dL (1.6-2.6)
--- NOTE | 2016-05-21 06:39 | NUR ---
P) CCU Transfer Received pt from OR at approx. 2100, intubated and febrile, T max 38.5c orally, pt. became hypotensive with no response to bolus's of 1.5L of NS, norepi started per 's orders, Skin below abdominal fold and groin and scrotum extremely red and excoriated, also ankles with PVD type color changes with dry and scaling skin. Urine very cloudy and foul smelling. I) Meds per consult with MD, turning q2h and floating heels. E) Cont. close monitoring, pt. wakes easily and nodded when asked if in pain., fentanyl titrated for comfort.
[2016-05-21] MEDS ORDERED: KCl 40 mEq/100 mL Premix (K 3 - 3.7 & Creat < 2) IV ONE (07:05)
[2016-05-21] MEDS ORDERED: Mag Sulf 4 Gm/100 mL IV Premix (Mag < 1.6 & Creat < 2) IV ONE (07:05)
[2016-05-21] MEDS: Insulin LISPRO 300 Unit/3 mL Inj SUBQ SCH ×4 (08:00→20:34)
[2016-05-21] MEDS ORDERED: Vancomycin Dose per Pharmacist XX SCH (08:30)
[2016-05-21] MEDS ORDERED: cefTRIAXone Inj 2,000 MG in Dextrose 5% Minibag Plus 50 ML IV SCH (08:30)
[2016-05-21] MEDS ORDERED: Azithromycin Inj 500 MG in Dextrose 5% w/Vial Mate 250 ML IV SCH (08:30)
--- NOTE | 2016-05-21 08:44 | PCM.PNSURG ---
Subjective Date of Service: May 21, 2016 Date of Service: May 21, 2016 Visit Information: Reason for Visit Sepsis,Uri,Esvin Surgery/Surgery Date Post-Op Day # 1 Date of Admission: May 20, 2016 at 17:04 Hospital Day # 2 Subjective: Mr Roldan is presently intubated and sedated. Objective Vital Sign- Last 8 Hours Date Time Temp Pulse Resp B/P Pulse Ox O2 Delivery O2 Flow Rate FiO2 05/21/16 07:26 62 130/57 98 30 05/21/16 04:50 64 116/53 99 50 05/21/16 04:00 37.5 66 16 119/54 99 Mechanical Ventilator 50 05/21/16 04:00 66 Intake and Output- Last 8 Hour 05/21/16 Cumulative From/Thru 07:00 05/20/16 14:10 - 05/21/16 06:00 Intake Total 3329 ml 6579 ml Output Total 950 ml 950 ml Balance 2379 ml 5629 ml Intake IV Total 3329 ml 6579 ml Output Urine Total 800 ml 800 ml Gastric Drainage Total 150 ml 150 ml Abdomen: Soft Extremities: Warm Catheters: Urethral 2 Way Mason (draining subtly cloudy urine, mostly clear and very light yellow) Result Diagram: 05/21/16 0520 05/21/16 0520 Assessment & Plan Impression POD#1 LEFT ureteral stent Problems: Plan Anticipate definitive management of his stone in the outpt setting, once he has recovered (usually no sooner than 3-4 wks after presentation). Mason can be DC'd as deemed appropriate by primary service - Recommend voiding trial in the AM (as early as possible), day of Very much appreciate the care of hospitalist service Please, do not hesitate to contact me with questions/concerns - Office [phone] Prophylaxis: SCDs Resuscitation Status: CPR: Attempt Resuscitation Suzette Guevara MD May 21, 2016 08:44
--- NOTE | 2016-05-21 08:55 | DRSVH ---
PROCEDURE: X-RAY RETROGRADE UROGRAPHY INDICATIONS: STENT PLACEMENT TECHNIQUE: 2 intra-operative images acquired by the Urology service. COMPARISON: None. FINDINGS: Intraoperative images demonstrate catheterization of the left collecting system. Examinati on is limited by motion artifacts and body habitus. IMPRESSION: Catheterization of left collecting system. Dictated by: Tania Murphy M.D. on 05/21/2016 at 8:53 Approved by: Tania Murphy M.D. on 05/21/2016 at 8:54
[2016-05-21] MEDS: Nystatin 100,000 Unit/Gm 15 Gm Powder TOPICAL SCH ×2 (08:59→20:22)
--- NOTE | 2016-05-21 09:02 | DRSVH ---
PROCEDURE: X-RAY CHEST ONE VIEW, PORTABLE ([id number]) INDICATIONS: intubation planned prior to surgery TECHNIQUE: One view of the chest was acquired. COMPARISON: [facility], CR, XR CHEST 1VW (PORTABLE), 05/20/2016, 21:15. [facility], CR, XR CHEST 1VW (PORTABLE), 05/20/2016, 15:11. [facility], CR, CHEST 1VW (PORTAB LE), 03/26/2013, 2:12. FINDINGS: Surgical changes and devices: Tubes and catheters are in stable and expected positions. Lungs and pleura: No pleural effusions or pneumothorax. Patchy airspace opacity has increased within the left lung base. No change in bilateral right greater than left perihilar patchy opacities. Mediastinum: Mediastinal contours appear normal. Heart size is normal. Bones and chest wall: No suspicious bony lesions. Overlying soft tissues appear unremarkable. IMPRESSION: 1. Increased left basilar pneumonia. 2. No change in right greater than left bilateral midlung pneumonia. Dictated by: Tania Murphy M.D. on 05/21/2016 at 9:00 Approved by: Tania Murphy M.D. on 05/21/2016 at 9:00
--- NOTE | 2016-05-21 10:56 | NUR ---
NUTRITION ASSESSMENT: ASSESS: Pt is a 75yo M admitted to CCU for sepsis and hydronephrosis secondary to ureteral stone. Pt underwent surgery and currently has L. ureteral stent. He is intubated and sedated from surgery. Possible sedation vacation today and extubation. He is NPOx1 day. PMHX: T2DM, MAHNAZ, dyslipidemia, lung ca, dementia LABS: Reviewed. Na 132, K 3.3, CO2 16, Glu 133, Ca 6.6, phos 2.3, Mg 1.3, Alb 2.2 MEDS: Reviewed. Fentanyl, propofol currently running @ 12ml/hr to provide 316kcal/day GI: 0 BM yet SKIN: Giuseppe 12, wound consult pending CURRENT WTS: 117kg, BMI 37kg/m2, IBW 75.4kg DIET: NPO EST. NEEDS: vent/ BMI Kcals: 2340-2575kcal/day (20-22kcal/kg) Pro: 110-135g/day (1.5-1.8g/kg IBW) Fluids:~2925-3510ml/day (25-30ml/kg) NUTRITION DIAGNOSIS: 1.) Inadequate oral intake related to decreased ability to consume sufficient energy as evidenced by current NPO status NUTRITION INTERVENTION: 1.) Will continue to monitor NPO status. If pt continues to be NPO/vent recommend consider nutrition support. MONITOR / EVAL: NPO/vent, wt, labs, GI, POC, nutrition status. Will continue to monitor per high nutrition risk guidelines
[2016-05-21] MEDS: Piper-Tazo 3.375 Gm/50 mL D5W Minibag Plus - Q8H over 4 hrs IV SCH ×4 (11:05→17:32)
[2016-05-21] MEDS: levoFLOXacin Inj 750 MG in IV Premix 1 EACH IV SCH (12:28)
--- NOTE | 2016-05-21 14:16 | CONS ---
[address] [address] CONSULTATION REPORT PATIENT: DAVION DAVIDSON : 1940 MR#: [id number] ADMIT: 05/20/2016 JOB ID: [id number] DATE OF SERVICE: 05/21/2016 INFECTIOUS DISEASE CONSULTATION: I thank Dr. Dutton for this timely consult. DATE OF SERVICE: REASON FOR CONSULTATION: Septic shock presumably of urinary source in a patient with underlying lung cancer. HISTORY OF THE PRESENT ILLNESS: The patient is a fascinating case who I had the opportunity to see back in the fall of this year. He was admitted to this facility in mid December 2015 with about a 6-week history of profound fatigue, rapid weight loss and what sounded like the beginnings of dementia with considerable problems with memory and cognition which were new. Because of this very worrisome group of symptoms, he was admitted and we rapidly discovered that he had a large thick-walled cavity in his right lower lung. The etiology of this was unclear in this gentleman with longstanding diabetes, sleep apnea and obesity who had quit smoking a few years prior and we were concerned about possibilities such as lung abscess, mycobacterial infection or fungal process. Other possibilities included malignancy. We initiated a workup to rule out many of these things in our differential diagnosis and the Pulmonary service also. Became involved because of the huge nature of this cavity and concern that it might require resection, the patient was eventually transferred to [facility] on January 06 for a thoracic surgery evaluation. At that time, he left our working hypothesis was probable lung abscess, rule out malignancy. The patient has not been seen anywhere in the [facility] or at this hospital since that transfer on January 06. Yesterday the patient was admitted with a sudden onset of confusion, fever and chills. We had a chance to review these symptoms with the patient's and daughter as the patient himself is now intubated and sedated in the ICU. They report that he was doing great up until a couple days ago, and they were able to fill the missing past medical history since Thanksgiving. They note that while at [facility] the patient underwent bronchoscopy which revealed a diagnosis of lung cancer stage III. He then received 18 daily sessions of radiation at [facility] but did not receive any surgery or chemo for his malignancy. They note that following all this the patient started to gain some weight, was feeling better. His mentation improved though did not reach his baseline going back to the summer of last year, and he was all in all, improving on a week by week basis. They note that just very recently, within the last two or three days, he started to develop a decline in his previously improving mental status as well as some shortness of breath, fevers, chills and back pain. Because of these findings, the patient was admitted here yesterday. He was found to have a lactic acidosis, leukocytosis and a CT KUB showed what appeared to be a stone on the left side. Urology was consulted and they performed a cystoscopy with retrograde pyelogram and eventually placed a stent. Though no stone was found during the procedure, some purulent material was found and it was felt that the diagnosis was sepsis secondary to a complicated urinary tract infection. The patient, subsequent to that, was admitted to the ICU, intubated, sedated and has been on low-dose vasopressor agents through the night. Today we were able to discuss the case with his family. The patient himself is intubated, sedated and obviously unable to provide any more history. PAST MEDICAL HISTORY: 1. Stage III lung cancer, unknown tissue type, though we have requested records, treated with radiation during the fall of 2015. 2. Diabetes type 2. 3. Obstructive sleep apnea. 4. Macular degeneration. 5. Obesity. 6. Bilateral knee surgeries. SOCIAL HISTORY: The patient served 30 years in the [employer] with world wide service including the [facility]. Following [facility], he lived in [facility] with his first on a sail boat. She subsequently and he remarried and now lives in the local area with his of three or four years. The patient quit smoking about eight years ago and does not drink alcohol any longer. FAMILY HISTORY: Unobtainable as the patient is intubated and sedated. REVIEW OF SYSTEMS: Likewise impossible as the patient is intubated and sedated. We did not get what information we could from the family. PHYSICAL EXAMINATION: Reveals an intubated, sedated, elderly gentleman in no apparent distress. He is currently 37.5 degrees but he was 38.5 just a few hours ago. Pulse is in the 60s and sinus rhythm. He is saturating very well on 30% FiO2 and 5 of PEEP. Blood pressure 130/57. Head without trauma. Eyes without conjunctivitis. Skin without rash. The oral cavity has an endotracheal tube, orogastric tube. Neck without significant adenopathy. Lungs fairly clear anteriorly. Cardiac tones: Regular rate and rhythm without notable murmur. The abdomen is soft and apparently nontender as he is not awake but no organomegaly. No ascites. Penis and scrotum look normal. He has a Mason catheter in place. No inguinal adenopathy is noted. The extremities are well perfused. There is no evidence of synovitis. No cellulitis. No edema. Neurologic examination cannot be done as he is intubated and sedated. LABORATORIES: Include white count 16,000 yesterday with left shift, today 14,000, persistent left shift. Creatinine 1.21 which is down from 1.63 yesterday. Lactic acid 0.9. LFTs normal. Procalcitonin 0.97. Urinalysis was packed with white cells on this occasion. Urine Legionella negative. Urine pneumococcal antigen likewise negative. Blood cultures, at this point, are negative. A respiratory viral PCR panel negative and sputum taken out from the endotracheal tube, rare polys and no organisms. MRSA screen is negative. The urine culture from yesterday has some growth and is being reincubated so as of yet we have no organism. IMAGING: Includes a chest x-ray done yesterday which shows the cavitary mass in the right lower lobe. Of more importance the CT scan shows that there is a thick-walled, gas-filled cavity which is considerably smaller than it was on January 02. In addition, there were some very subtle scattered infiltrates in the right middle lobe which were not impressive and findings suspicious for left hydronephrosis. This led to a CT KUB which showed an obstructive stone in the proximal left ureter causing hydronephrosis and thickening of the bladder. The micro from the prior admission is interesting. We had obtained a variety of studies before his transfer to [facility]. One was an AFB PCR on the sputum which turned out to be negative for tuberculosis but the AFB culture actually grew MAC which was eventually sent for susceptibilities and found to be clarithro susceptible. There has been no followup that we are aware of on the pulmonary MAC though we hope to obtain additional cultures from [facility] and/or [facility]. IMPRESSION: This is a fascinating but unfortunate case of a gentleman who was in good reasonably good health until the summer of 2015 when he developed increasing signs and symptoms of dementia as well as weight loss and cough. He was admitted to this facility in late December and found to have a very large, thick- walled cavity in his right lower lobe. A major workup was started here which yielded eventually a single positive culture of sputum for MAC which was a macrolide susceptible strain. In the meantime though, he was transferred to [facility] where invasive procedures disclosed a diagnosis of advanced lung cancer. He was treated conservatively with 18 days of radiation therapy and his cavitary tumor mass is now considerably smaller and his family reports his health has been steadily better until just a couple days ago when he developed fevers, chills and increasing confusion with some back pain. The most parsimonious way to put this together is that his lung cancer is actually stable or getting better and meanwhile he has developed a complicated urinary tract infection leading to a septic picture over the past couple days. We await the identification of the urinary organism. Left unanswered is the state of his possible MAC infection. Single positive sputum cultures for MAC are not diagnostic of this entity unless they are obtained by bronchoscopy from deep in the lung. Expectorated sputums require two and preferably three to make a diagnosis with a compatible clinical history. At this point, I would not jump on MAC therapy. Instead will proceed with broad-spectrum antibiotics including Levaquin and Zosyn. This offers dual coverage for possible gram-negative shock as recommended by the latest guidelines. It also affords some coverage for pneumonia though I do not think looking at this chest x-ray this patient has a conventional pneumonia. RECOMMENDATIONS: 1. We have asked for additional records for [facility] as well as the [facility] in [facility]. 2. I agree with the Zosyn and levo which we discussed extensively during ICU rounds this morning. 3. Sputums x3 for AFB should be obtained, not because we are concerned about TB which we are not, but because we want to further evaluate the possibility of a superimposed MAC infection. 4. The total duration of treatment for this presumably complicated urinary tract infection will be dependent on identification of the organism and how the patient does. 5. Note that I will be out of town the next three days returning May 25, but I can be reached by telephone at any time and my resident, Dr. Sade Hernandez, will be coming around tomorrow and looking at patients and give me a call.
--- NOTE | 2016-05-21 15:28 | NUR ---
Social Work: Initial Assessment Data/Assessment: Per EMR review, pt is a 75 year old male admitted for Sepsis, URI, RODGER. Pt is Medicare with for life supplement; pt has no LTC insurance or VA benefits. PCP is Shalom Noel MD. DPOA is pt's dtr Tisha Karlos ([phone]). Advanced directives completed- copy requested for pt's chart. Readmit score not entered at this time. SENIOR UX DESIGNER met with pt's family at bedside. Sw role explained and contact info provided. See initial assessment. Pt lives in [place] with his . He is I with ADLs and uses no DME. Pt and spouse do not drive and rely on their dtr/DPOA for transportation. Pt was recently at [facility] and was discharged to [facility] where he spent several weeks. Pt's dtr brought the pt to her home after SNF d/c. They briefly had [facility] in place however pt was doing so well that he was immediately discharged from services. After several weeks at his daughter's, pt was thriving and expressed that he wished to return back home with his in [place]. This was a week ago. Dtr states that since returning home the pt has been forgetting to eat, has not been sleeping and has been forgetting to take medications. Pt's daughter agrees that the pt and his 's needs may be changing and may require more supervision. She is prepared to have both come to live with her after discharge. While she would like to avoid a SNF discharge, she also understands that this may be necessary for a short time. SNF/HH CHOICE LIST PROVIDED. Preference would be to return to [facility] or go home with [facility]. [facility] and sedated. Pt's discharge needs are unknown at this time. Plan: Evolving; SENIOR UX DESIGNER to continue to follow pt's clinical course; Pt may require SNF versus discharge home with 24/7 care from daughter and [facility]. SENIOR UX DESIGNER to continue to follow. FABIENNE Short Addendum: 05/21/16 at 1548 by CHEPE KRAMER Amended: Links added.
--- NOTE | 2016-05-21 16:54 | NUR ---
Wound Care Pressure ulcer protocol received, pt anika at bedside. 75 yo male intubated,restrained in CCU bed, SCD's on LE's, Mason catheter ( purulence at meatus). Positioned in right sidelying, buttocks with linear skin bruising or petechia about 3 cms in length right and left, not open or draining. No pressure related skin issues noted at this time. No wound care needs.
[2016-05-21 17:22] LABS: Magnesium 2.2 mg/dL (1.6-2.6)
--- NOTE | 2016-05-21 18:29 | NUR ---
Sedation/Agitation Pt continues to be a RASS -1 for majority of the shift. When turning or doing patient care, he will open his eyes and will get tachypneic and restless. Bolusing with 3 of propofol intermittently. Had to titrate propfol up at beginning of the shift because of agitation and restlessness. Frequent rounding, q2h oral and turning care continues.
--- NOTE | 2016-05-21 18:34 | PCM.PNMED ---
Subjective Date of Service May 21, 2016 Subjective Overnight: Patient successfully had a left ureteral stent placed with subsequent purulent urine drainage from left kidney. Patient remains intubated and sedated. No events reported overnight Today: Patient continues to remain intubated and sedated per ICU recommendations we will continue with ventilatory support. Family present at bedside Exam Vital Signs Vital Sign - Last Date Time Temp Pulse Resp B/P Pulse Ox O2 Delivery O2 Flow Rate FiO2 05/21/16 04:50 64 116/53 99 50 05/21/16 04:00 37.5 16 Mechanical Ventilator 05/20/16 18:15 1.00 Intake and Output 05/20/16 05/20/16 05/21/16 Cumulative From/Thru 14:59 22:59 06:59 05/20/16 14:10 - 05/21/16 06:00 Intake Total 3250 ml 3329 ml 6579 ml Output Total 950 ml 950 ml Balance 3250 ml 2379 ml 5629 ml Intake IV Total 3250 ml 3329 ml 6579 ml Output Urine Total 800 ml 800 ml Gastric Drainage Total 150 ml 150 ml Exam General: Intubated and sedated HEENT: Normocephalic, atraumatic. ET tube in place Neck: No jugular venous distension. Cardiovascular: Regular rate and rhythm with no murmurs, rubs, or gallops appreciated Pulmonary: Clear to auscultation bilaterally with no crackles. Abdomen: Soft to palpation 4 quadrants. No rigidity : Mason catheter in place Extremities: No clubbing, cyanosis, edema, or lymphadenopathy appreciated. Skin: Normal temperature, turgor, and texture Neurological: Intubated and sedated Ventilator settings. FiO2 30%, PEEP 5, RR 16, TV 550 IV drips: Levophed 0.08, fentanyl 75, propofol 25 IV lines: Right IJ, right arterial line, left AC Ins and outs: In total 5513, L total 2100, balance +3413. IVs and Medications Medications Reviewed: Medications were reviewed in detail Lab and Diagnostics Result Diagram: 05/21/1651905/21/16 0520 X-Rays, CTs and MRIs . X-RAY CHEST ONE VIEW, PORTABLE IMPRESSION: A cavitary mass in the right mid lung medially. No acute cardiopulmonary disease. Dictated by: Rick Salcedo M.D. on 05/20/2016 at 15:45 CT CHEST WITHOUT CONTRAST IMPRESSION: 1. 3 mm right upper lobe pulmonary nodule which is demonstrated stability when compared to study dated 01/03/16. Which has demonstrated 5 months of stability. Please see followup guidelines below. 2. Decreased size of the right lower lobe superior segment gas-filled cavitary lesion when compared with the study dated 01/03/16. This finding suggests persistent communication with a subsegmental bronchus. 3. Trace air space opacities within the right middle lobe suggestive of aspiration or infection. 4. Findings suspicious for left hydronephrosis which is new when compared with the prior study. Renal ultrasound or CT KUB would be helpful to further characterize this finding if clinically indicated. Fleischner Society criteria for SOLID lung nodule followup. Nodule size (mm)Low-risk patientHigh-risk [id number] follow-up neededFollow-up at 12 mo; if no change, no further follow-up>4-7Lmbybc-le CT at 12 mo; if no change, no further follow-up needed.Initial follow-up CT at 6-12 mo, then 18-24 mo if no change. >6-8Initial follow-up CT at 6-12 mo, then 18-24 mo if no change. Initial follow-up CT at 3-6 mo, then 9-12 mo and 24 mo if no change. > 8Follow-up CT at 3, 9, 24 mo. Or PET and/or biopsy.Same as for low-risk pts. Fleischner Society criteria for SUB-SOLID lung nodule followup. Solitary pure ground-glass nodules5 mm or lessNo followup needed. >5 mm3 mo follow-up CT to confirm persistence. Then annual CT for 3 years. Part-solid nodules3 mo follow-up CT to confirm persistence. If persistent with solid component <5 mm, annual CT for at least 3 years. If solid component is 5 mm or more, biopsy or surgical resection. Consider PET-CT for lesions > 10 mm. Multiple sub-solid nodulesPure ground glass nodules [address] at 2 and 4 years. Pure ground glass nodules >5 mm without dominant lesion. [address] to confirm persistence, then annual followup CT for at least 3 years. Dominant nodule(s) with part-solid or solid component. [address] to confirm persistence. If persistent, consider biopsy or surgical resection, rambo if lesions have >5 mm solid component. Dictated by: Alma Burroughs M.D. on 05/20/2016 at 16:06 CT KUB IMPRESSION: 1. A 14 x 8 mm obstructive stone is present in the proximal left ureter causing moderate hydronephrosis. 2. Bilateral renal cysts. 3. Mild concentric thickening of urinary bladder. This finding may be secondary to cystitis or chronic bladder outlet obstruction. Recommend clinical correlation. 4. Subpleural infiltrates and right basilar consolidation suspicious for pneumonia. 5. 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 Dictated by: Rick Salcedo M.D. on 05/20/2016 at 17:08 X-RAY CHEST ONE VIEW, PORTABLE IMPRESSION: 1. Increased left basilar pneumonia. 2. No change in right greater than left bilateral midlung pneumonia. Dictated by: Tania Murphy M.D. on 05/21/2016 at 9:00 X-RAY RETROGRADE UROGRAPHY IMPRESSION: Catheterization of left collecting system. Dictated by: Tania Murphy M.D. on 05/21/2016 at 8:53 Assessment & Plan Mr. Roldan is a 75-year-old male with past medical history of lung cancer treated with radiation and chemotherapy per family, diabetes mellitus type II, MAHNAZ on CPAP, dyslipidemia, admitted for sepsis with the underlying cause is likely hydronephrosis secondary to obstructing ureteral stone. Patient may also have a concomitant pneumonia. Hospital day 3. 1. Severe Sepsis. Present on admission. Ongoing - Sepsis criteria met with pulse rate 104, respiratory rate 32. White blood cell count 15.9. Lactic acid 3.7. - Probable source hydronephrosis secondary to obstructing ureteral stone - Concern for possible pneumonia - Patient received 2 L fluid in ED - Continue normal saline 100 mL/hr - Patient given one-time dose azithromycin and ceftriaxone in the ED - Infectious disease following, we appreciate the recommendations - Levofloxacin and Zosyn started - Lactic acid trending down last night 2.8, will continue to monitor - Urology following - Appropriate cultures and serologies pending, negative to date 2. Intubation for procedure, prolonged need for intubation secondary to sepsis. Not present on admission. Ongoing - Patient remains intubated and sedated - Vent settings FiO2 30%, PEEP 5, respiratory rate 16, tidal volume 550 - Propofol 25 fentanyl 75 3. Hydronephrosis. Present on admission. Ongoing - CT KUB showed a 14 x 8 mm obstructive stone in the proximal left ureter, successful surgical intervention - Dr. Guevara urology consultation as in #1 - Continue antibiotics as in #1 4. Concern for pneumonia. Present on admission. Ongoing - CT showed Trace air space opacities within the right middle lobe suggestive of aspiration or infection. - White count as in #1, trending down - Pro calcitonin 0.74, repeat lab 0.97 - Antibiotics as in #1 - ABGs and chest x-ray ordered for a.m. 5. Acute kidney injury. Present on admission. Improving - Creatinine on admission 1.63, trended down last value 1.21 - Most likely secondary to #2 - Continue IV fluids - Monitor ins and outs 6. Hyponatremia. Present on admission. Improving - Most likely secondary to #2 - Continue to monitor 7. Encephalopathy. Present on admission. Ongoing - Most likely secondary to infectious state - Antibiotics as in #1 - Patient currently intubated and sedated - Continue to monitor 8. Diabetes mellitus type II. Present on admission. Ongoing - No diabetes medication mentioned in med rec - Last A1c to 11/04/2013 5.6, repeat A1c pending - low dose correctional scale insulin 9. Lung cancer. Present on admission. Ongoing - CT showed cavitary lesion, decreased in size from previous study and right upper lobe pulmonary nodule, stable when compared to previous study - Reportedly finished chemotherapy and/or radiation treatment 30 days prior. Tomorrow was 30 day check up from last cancer treatment. 10. Abdominal aortic aneurysm. Present on admission. Ongoing - Incidental CT finding showed a 3 cm in diameter aneurysm of distal abdominal aorta. As well as moderate severe atherosclerosis. - Recommend follow-up and monitoring as outpatient DVT prophylaxis: Heparin GI prophylaxis. Famotidine twice a day Disposition: Patient remains intubated and sedated, tomorrow we will try sedation vacation followed by pressure support trial. Patient Status: Patient was admitted under inpatient status with expected length of stay greater than two midnights due to severity of presenting symptoms , risk of adverse event, and complexity of treatment plan. Pain Evaluation: Adequate Pain Control VTE Prophylaxis: SCDs VTE Mechanical Devices: Intermittant Pneumatic CD Resuscitation Status: CPR: Attempt Resuscitation Attending Statement The patient was seen and examined together with Dr. Saxena on 05/21/2016 and I agree with the history, exam and plan as outlined in the note above. . ALEK SAXENA DO May 21, 2016 06:52 Luiz Dutton MD May 23, 2016 17:59
[2016-05-21] MEDS ORDERED: Heparin 5,000 Unit/mL Inj SUBQ SCH (18:35)
[2016-05-21] MEDS: Famotidine Inj 20 MG in IV Premix 1 EACH IV SCH (20:21)
[2016-05-21] MEDS: fentaNYL 2,500 mCg/250 mL IV Premix IV SCH (20:22)
[2016-05-22] VITALS (12 sets, daily range): BP systolic 91–132; BP diastolic 46–72; PULSE 54–98; RESP 13–20; O2SAT 95–98
--- NOTE | 2016-05-22 00:13 | CONS ---
[address] [address] CONSULTATION REPORT PATIENT: DAVION DAVIDSON : 1940 MR#: [id number] ADMIT: 05/20/2016 JOB ID: [id number] DATE OF SERVICE: 05/21/2016 CONSULTING PHYSICIAN: Luiz Dutton MD REASON FOR CONSULTATION: Acute hypoxemic respiratory failure. HISTORY OF PRESENT ILLNESS: The patient is a 75-year-old, male who is unable to give any history being sedated on mechanical ventilation. Apparently, he presented to the emergency department with a three-day history of productive cough. Just not feeling well. He was brought to the emergency department where he was found to have a respiratory rate of 32, temperature 37.4, white count of 15,900, and lactic acid of 3.7. During the evaluation, CT KUB showed a stone obstructing the left ureter. Due to the presence of the sepsis felt to be due to the ureteral obstruction, the patient underwent urethral dilatation with cystoscopy and left retrograde pyelogram with placement of left ureteral stent and Mason catheter. Purulent urine was evacuated from the left kidney upon cannulation with the stent. Temperature natasha as high as 39.4 during the procedure. A left double-J ureteral stent was placed. Postoperatively, he was transferred to the intensive care unit and left intubated. PAST MEDICAL HISTORY: 1. Mass bronchogenic carcinoma, right lower lung field. Status post radiation therapy. 2. Morbid obesity. 3. Bronchogenic carcinoma treated, apparently, with radiation therapy with radiation treatment finishing one month previously. 4. Diabetes mellitus. 5. Acute kidney injury. ALLERGIES: IODINE causes anaphylaxis. MEDICATIONS INCLUDE: Citalopram, senna, and potassium chloride. REVIEW OF SYSTEMS: Unable. OBJECTIVE: Temperature 36.9. Pulse 58. Respiratory rate 16 with ventilator set at 16. Blood pressure 133/67 on norepinephrine infusion at 0.08 mcg/kg per minute. O2 sat on FiO2 of 0.3, PEEP of 5, is 96%. General appearance: Well developed, well nourished, moderately overweight, male in no acute distress. Eyes: Conjunctivae are pink and moist. No scleral icterus. Pupils about 3 mm and reactive. Nose and throat could not be examined. Neck shows a right IJ line in place. No surrounding erythema. Chest: Fairly good breath sounds bilaterally. There are fairly good breath sounds bilaterally. Lung saldana were clear though diminished at the bases. Peak inspiratory pressure of 26, plateau 18, tidal volume of 550, rate of 20 shows a pO2 of 113, pCO2 of 29.9, pH 7.46. Heart: Regular rhythm. Heart tones normal. Abdomen is soft. Nondistended. Nontender. Liver and spleen not palpable. A few bowel tones noted. Extremities: No clubbing, cyanosis. No pretibial edema. Skin shows erythematous rash in the left inguinal area. There is a very mild erythema in the presacral skin with a mild 1 x 3 abrasive type lesion. There was no skin breakdown. There was some mild diffuse surrounding erythema. Extremities warm, pink. DATA: Laboratory data shows a white count of 14,200 with marked neutrophilia with 92 polymorphonuclears, 2 lymphocytes, 5 monocytes. Hemoglobin at 10.9 down from 12.3 prior to surgery. Platelet count 210,000, relatively stable with admitting platelet count 246, 12 hours previously. Sodium 132, potassium 3.3, chloride 101, carbon dioxide 16, BUN 16, creatinine 1.2. Lactic acid 0.7. Calcium 6.6. Phosphorus 2.3. Magnesium 1.3. Total bilirubin 0.9. Transaminases are normal. Alkaline phosphatase 68. Albumin 2.2. Procalcitonin 0.9. UA shows large urine leukocyte esterase. Urine WBC packed. Urine bacteria moderate. No WBC casts. Urine for Legionella antigen is negative. Urine for Streptococcus pneumoniae antigen is negative. Nasopharyngeal PCR for viral respiratory antigen is negative. Chest x-ray on admission shows a cavitary density in the right mid lung medially. Had a considerable amount of fluid with an air-fluid level on a previous CT of 01/03/2016, presumably in the area of his irradiated chest for bronchogenic carcinoma. Today's chest x-ray shows some increase in the bibasilar opacities. Nursing reports that on lightening his fentanyl, he had a considerable amount of pain. In addition, attempts to decrease his norepinephrine resulted in a drop in his blood pressure. ASSESSMENT: 1. Respiratory failure. The patient continues to require mechanical ventilation. Likely is multifactorial in terms of pain postoperative status some prior damage to the lung due to the radiation for bronchogenic carcinoma. 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 2. Sepsis. Blood pressure is presently normal. However, he is dependent to some extent on pressors. On broad-spectrum antibiotics with cultures pending. Receiving adequate amount of fluids, and I think from fluid resuscitation he is doing reasonably well. 3. Multiple electrolyte abnormalities. Potassium, magnesium, and phosphorus all being replaced. 4. Mechanical ventilation. The patient requires control of his pain, continuous reassessment of his hemodynamic status. In addition, he has morbid obesity with notes suggesting sleep apnea, probably obesity hypoventilation syndrome. It indicates that he is not alert enough right now to tolerate extubation; therefore, we continue mechanical ventilation until his numerous abnormalities have been rectified. Would like to continue trials of lightening up to see if we can find a happy medium where he is a bit more awake but pain controlled, and we would be able to adequately take care of cough and upper airway protection. 5. Bronchogenic carcinoma status post radiation with last treatment being apparently a month ago. Will need to obtain information regarding the diagnosis and treatment of the bronchogenic carcinoma. Also need to explore whether he truly has Mycobacterium avium-intracellulare disease or merely colonization. Does not appear to have any significant bronchiectasis present. PLAN: 1. Continue antibiotics as per ID. 2. IV fluids as per hospitalist orders. 3. Analgesia per hospitalist. Thank you so much, Dr. Dutton, for asking Pulmonary Service to see this most interesting individual. Will follow his respiratory status closely along with you with the goal being expeditious extubation.
[2016-05-22] MEDS: Chlorhexidine 0.12% 15 mL Oral Solution MT SCH ×5 (01:12→13:09)
[2016-05-22] MEDS: Heparin 5,000 Unit/mL Inj SUBQ SCH ×3 (01:12→16:07)
[2016-05-22] MEDS: Piper-Tazo 3.375 Gm/50 mL D5W Minibag Plus - Q8H over 4 hrs IV SCH ×6 (01:12→18:41)
[2016-05-22 03:58] LABS: BASOPHILS % (AUTO) 0.3 % (0-3); EOSINOPHILS % (AUTO) 0.9 % (0-5); MONOCYTES % (AUTO) 7.5 % (4-12); Mean Corpuscular Hemoglobin 28.7 pg (27.0-35.0); Mean Corpuscular Volume 87.9 fL (81-100); Platelet Count 201 bil/L (150-400)
--- NOTE | 2016-05-22 05:31 | ABG ---
DateTimeAnalyzed 05:28:00 -_ pH ____7.448 - 7.350 7.450 pCO2 ___29.8__ -mmHg 35.0 45.0 pO2 ___91.3__ -mmHg 69.0 116 HCO3- ___20.3__ -mmol/L 22.0 26.0 ABE ___-2.4__ -mmol/L -2.0 2.0 tHb ___11.9__ -g/dL O2Hb ___96.2__ -% COHb ____0.9__ -% MetHb ____0.8__ -% sO2 ___97.9__ -% 25.0 FIO2 ___30.0__ -% PRVC 628 - PEEP ____5.0__ -cmH2O Set_RR ___16.0__ -b/min Vt __550.0__ -L Drawn By RB - Date/Time Notified____ 05:31:00 -_ Spontaneous_RR ___16.0__ -b/min Oxygen Device 1 VENTILATOR - Notified Whom CIELO F, RN - B 737 -mmHg tO2 ___16.2__ -Vol% Bj test N/A -
--- NOTE | 2016-05-22 06:05 | NUR ---
Hemodynamics/Resp/ Patient remains on vent with 30% FIO2 , tolerating well on 35mcg/kg/min Propofol and 75mcg/hr Fentanyl. RASS-2, follows commands and goes rightr back to sleep, no distress noted ttu Addendum: 05/22/16 at 0610 by MARTA KENT RN Amended: Links added. Addendum: 05/22/16 at 0617 by MARTA KENT RN Hemodynamics/Resp/ Patient remains on vent with 30% FIO2 , tolerating well on 25mcg/kg/min Propofol and 75mcg/hr Fentanyl. RASS-2, follows commands and goes right back to sleep, no distress noted titrated Levophed from 0.08 to 0.04 this shift, BP 120's/70's at this time, HR SB 47-55bpm, no BM, 850ml urine output this shift, uneventful shift, bath and linens changed.
[2016-05-22] MEDS ORDERED: KCl 40 mEq/100 mL Premix (K 3 - 3.7 & Creat < 2) IV ONE (07:10)
[2016-05-22] MEDS: Insulin LISPRO 300 Unit/3 mL Inj SUBQ SCH ×4 (07:46→22:00)
[2016-05-22] MEDS: 0.9% Sodium Chloride 1,000 ML IV SCH ×2 (07:47→18:56)
[2016-05-22] MEDS: Famotidine Inj 20 MG in IV Premix 1 EACH IV SCH (07:48)
[2016-05-22] MEDS: Nystatin 100,000 Unit/Gm 15 Gm Powder TOPICAL SCH ×2 (07:48→19:44)
[2016-05-22] MEDS: levoFLOXacin Inj 750 MG in IV Premix 1 EACH IV SCH (09:33)
[2016-05-22] MEDS: Norepinephrine 8,000 mCg/250 mL D5W Premix IV PRN (09:34)
--- NOTE | 2016-05-22 10:31 | NUR ---
NUTRITION FOLLOW-UP: ASSESS: Pt is a 75yo M admitted to CCU with sepsis and hydronephrosis secondary to ureteral stone. Pt underwent surgery and currently has L. ureteral stent. He remains intubated and sedated status post surgery. Pressure support trials continue. Authorization received to initiate trophic enteral feeding. Code status: full. PMHX: T2DM, MAHNAZ, dyslipidemia, lung ca, dementia LABS: Na 132, Glu 116, Ca 7.5, PAB 5. MEDS: Norepi, fentanyl. Propofol rate currently 14 ml/hr, providing 370 lipid kcal. GI: 0 BM yet SKIN: There are no pressure related injuries at this time, per Check Embosser. WT: 117.0 kg, BMI 37kg/m2, IBW 75.4kg. Admit weight: 117.0 kg. DIET: NPO EST. NEEDS: vent/ BMI Kcals: 2340-2575kcal/day (20-22kcal/kg) Pro: 110-135g/day (1.5-1.8g/kg IBW) Fluids:~2925-3510ml/day (25-30ml/kg) NUTRITION DIAGNOSIS: 1) Inadequate oral intake related to decreased ability to consume sufficient energy as evidenced by current NPO status - PERSISTS. NUTRITION INTERVENTION: 1) Will initiate trophic enteral feeding as follows: Glucerna at 15 ml/hr x 24 hr. Once tolerance established, recommend 10 ml every 6 hr. to goal rate 65 ml/hr. Enteral feeding at goal will provide 2145 kcal (2515 kcal with propofol), 118 g protein, sufficient to meet 100% nutrient needs. 2) Will adjust goal rate enteral feeding if significant changes occur in propofol rate. MONITOR / EVAL: NPO / vent status, enteral feeding tolerance / advance, wt, labs, GI, POC, nutrition status. Will continue to monitor per high nutrition risk guidelines.
--- NOTE | 2016-05-22 11:08 | DRSVH ---
PROCEDURE: X-RAY CHEST ONE VIEW, PORTABLE ([id number]) INDICATIONS: vent TECHNIQUE: One view of the chest was acquired. COMPARISON: [facility], CR, XR CHEST 1VW (PORTABLE), 05/21/2016, 5:38. FINDINGS: Surgical changes and devices: None lines and tubes remain in stable position, no new device has been placed. Lungs and pleura: No pleural effusions or pneumothorax. Lungs are unchanged, with a bilateral pneum onia pattern greater on the right than the left, and with no definite pleural effusion. Mediastinum: Mediastinal contours appear normal. Heart size is normal. Bones and chest wall: No suspicious bony lesions. Overlying soft tissues appear unremarkable. IMPRESSION: Lines and tubes in normal position, stable bilateral pneumonia greater on the right than the left. No pleural effusion associated. Dictated by: Lorenzo Manrique M.D. on 05/22/2016 at 11:02 Approved by: Lorenzo Manrique M.D. on 05/22/2016 at 11:07
--- NOTE | 2016-05-22 11:34 | ABG ---
DateTimeAnalyzed 11:31:00 -_ pH ____7.376 - 7.350 7.450 pCO2 ___36.7__ -mmHg 35.0 45.0 pO2 ___83.5__ -mmHg 69.0 116 HCO3- ___21.0__ -mmol/L 22.0 26.0 ABE ___-3.1__ -mmol/L -2.0 2.0 tHb ___11.8__ -g/dL O2Hb ___95.1__ -% COHb ____0.9__ -% MetHb ____0.8__ -% sO2 ___96.7__ -% 25.0 FIO2 ___30.0__ -% Pressure_Support ____5.0__ -cmH2O PEEP ____5.0__ -cmH2O Vt __563.0__ -L Drawn By as - Date/Time Notified____ 11:34:00 -_ Spontaneous_RR ___18.0__ -b/min Oxygen Device 1 VENTILATOR - Notified By ams - Notified Whom _dr prieto - B 738 -mmHg tO2 ___15.9__ -Vol% Bj test N/A -
--- NOTE | 2016-05-22 11:49 | PCM.PNMED ---
Subjective Date of Service May 22, 2016 Subjective Overnight: The patient remained ventilated and sedated. Was arousable and able to follow commands. Telemetry showed sinus rhythm in the 50s to 70s with some PVCs. Ongoing first-degree heart block TX interval 0.2-0.21. Respiratory rate remained 18 throughout the night, this morning's blood gases showed a CO2 of 29.8. Respiratory rate decreased to 12. Today: Patient arousable to voice able to track with eyes. Able to squeeze hand when asked though very slight. Remains intubated and ventilated. Unable to assess review of systems. Patient had bradycardic event or heart rate dropped to 30s. ECG and echo ordered initial readings looked clear of cardiac pathology. Exam Vital Signs Vital Sign - Last Date Time Temp Pulse Resp B/P Pulse Ox O2 Delivery O2 Flow Rate FiO2 05/22/16 05:22 48 91/52 98 30 05/22/16 04:00 37.3 16 Mechanical Ventilator 05/20/16 18:15 1.00 Intake and Output 05/21/16 05/21/16 05/22/16 Cumulative From/Thru 15:00 23:00 07:00 05/20/16 14:10 - 05/22/16 06:21 Intake Total 2184 ml 3183 ml 93056 ml Output Total 1150 ml 980 ml 3080 ml Balance 1034 ml 2203 ml 8866 ml Intake Oral 0 ml 0 ml IV Total 2184 ml 3183 ml 20895 ml Output Urine Total 1150 ml 850 ml 2800 ml Gastric Drainage Total 130 ml 280 ml Exam General: Intubated on ventilator. Laying in hospital bed in no apparent distress. Able to open eyes and track movements. Follow some commands. Family present at bedside HEENT: Normocephalic, atraumatic. ET tube in place. PERRL. Neck: No jugular venous distension. IJ in place bandage intact Cardiovascular: Regular rate and rhythm with no murmurs, rubs, or gallops appreciated Pulmonary: Clear to auscultation bilaterally with no crackles. Abdomen: Soft to palpation 4 quadrants. No rigidity : Mason catheter in place Extremities: No clubbing, cyanosis, edema, or lymphadenopathy appreciated. Skin: Normal temperature, turgor, and texture Neurological: Intubated, able to follow some commands Ventilator settings. FiO2 30%, PEEP 5, RR 12, TV 550 IV drips: Levophed 0.04, fentanyl 75, propofol 20 IV lines: Right IJ, right arterial line, left AC Ins and outs: In total 66820, total out 3080, balance + 8866 Ins and outs: Last 24 hours in 3183, out 980, total + 2203 IVs and Medications Medications Reviewed: Medications were reviewed in detail Lab and Diagnostics Result Diagram: 05/22/16 0345 05/22/16 0345 Microbiology Sputum negative, MRSA negative, strep pneumo urine antigen negative, blood negative to date, influenza screen negative, respiratory viral PCR negative. Urine showed mixed urogenital cristy. X-Rays, CTs and MRIs . X-RAY CHEST ONE VIEW, PORTABLE IMPRESSION: A cavitary mass in the right mid lung medially. No acute cardiopulmonary disease. Dictated by: Rick Salcedo M.D. on 05/20/2016 at 15:45 CT CHEST WITHOUT CONTRAST IMPRESSION: 1. 3 mm right upper lobe pulmonary nodule which is demonstrated stability when compared to study dated 01/03/16. Which has demonstrated 5 months of stability. Please see followup guidelines below. 2. Decreased size of the right lower lobe superior segment gas-filled cavitary lesion when compared with the study dated 01/03/16. This finding suggests persistent communication with a subsegmental bronchus. 3. Trace air space opacities within the right middle lobe suggestive of aspiration or infection. 4. Findings suspicious for left hydronephrosis which is new when compared with the prior study. Renal ultrasound or CT KUB would be helpful to further characterize this finding if clinically indicated. Fleischner Society criteria for SOLID lung nodule followup. Nodule size (mm)Low-risk patientHigh-risk [id number] follow-up neededFollow-up at 12 mo; if no change, no further follow-up>3-5Dfgiro-hm CT at 12 mo; if no change, no further follow-up needed.Initial follow-up CT at 6-12 mo, then 18-24 mo if no change. >6-8Initial follow-up CT at 6-12 mo, then 18-24 mo if no change. Initial follow-up CT at 3-6 mo, then 9-12 mo and 24 mo if no change. > 8Follow-up CT at 3, 9, 24 mo. Or PET and/or biopsy.Same as for low-risk pts. Fleischner Society criteria for SUB-SOLID lung nodule followup. Solitary pure ground-glass nodules5 mm or lessNo followup needed. >5 mm3 mo follow-up CT to confirm persistence. Then annual CT for 3 years. Part-solid nodules3 mo follow-up CT to confirm persistence. If persistent with solid component <5 mm, annual CT for at least 3 years. If solid component is 5 mm or more, biopsy or surgical resection. Consider PET-CT for lesions > 10 mm. Multiple sub-solid nodulesPure ground glass nodules [address] at 2 and 4 years. Pure ground glass nodules >5 mm without dominant lesion. [address] to confirm persistence, then annual followup CT for at least 3 years. Dominant nodule(s) with part-solid or solid component. [address] to confirm persistence. If persistent, consider biopsy or surgical resection, rambo if lesions have >5 mm solid component. Dictated by: Alma Burroughs M.D. on 05/20/2016 at 16:06 CT KUB IMPRESSION: 1. A 14 x 8 mm obstructive stone is present in the proximal left ureter causing moderate hydronephrosis. 2. Bilateral renal cysts. 3. Mild concentric thickening of urinary bladder. This finding may be secondary to cystitis or chronic bladder outlet obstruction. Recommend clinical correlation. 4. Subpleural infiltrates and right basilar consolidation suspicious for pneumonia. 5. 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 Dictated by: Rick Salcedo M.D. on 05/20/2016 at 17:08 X-RAY CHEST ONE VIEW, PORTABLE IMPRESSION: 1. Increased left basilar pneumonia. 2. No change in right greater than left bilateral midlung pneumonia. Dictated by: Tania Murphy M.D. on 05/21/2016 at 9:00 X-RAY RETROGRADE UROGRAPHY IMPRESSION: Catheterization of left collecting system. Dictated by: Tania Murphy M.D. on 05/21/2016 at 8:53 X-RAY CHEST ONE VIEW, PORTABLE IMPRESSION: Lines and tubes in normal position, stable bilateral pneumonia greater on the right than the left. No pleural effusion associated. Dictated by: Lorenzo Manrique M.D. on 05/22/2016 at 11:02 12-lead ECG Sinus bradycardia with TX interval showing first-degree heart block. 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 Read by Dr. Saxena for 05/22/2016 Assessment & Plan Mr. Roldan is a 75-year-old male with past medical history of lung cancer treated with radiation and chemotherapy per family, diabetes mellitus type II, MAHNAZ on CPAP, dyslipidemia, admitted for sepsis with the underlying cause is likely hydronephrosis secondary to obstructing ureteral stone. Patient may also have a concomitant pneumonia. Hospital day 4. Ventilator day 3 1. Severe Sepsis. Present on admission. Improving - Sepsis criteria met leukocytosis, tachypnea, tachycardia and lactic acidosis - Probable source hydronephrosis secondary to obstructing ureteral stone - Concern for possible pneumonia as seen on chest x-ray - Continue IV fluid replacement NS 100 mL per hour - Azithromycin and ceftriaxone given in the ED - Infectious disease following, we appreciate the recommendations - Continue Levofloxacin and Zosyn - Lactic acid normalized - Urology following - Appropriate cultures and serologies negative to date - Repeat urine culture pending - CT scan chest abdomen and pelvis pending 2. Intubation for procedure, prolonged need for intubation secondary to sepsis. Not present on admission. Ongoing - Patient remains intubated - Vent settings FiO2 30%, PEEP 5, respiratory rate 12, tidal volume 550 - Propofol 20 fentanyl 75 - Daily ABGs and chest x-ray 3. Hydronephrosis. Present on admission. Ongoing - CT KUB showed a 14 x 8 mm obstructive stone in the proximal left ureter, successful surgical intervention - Dr. Guevara urology consultation as in #1 - Continue antibiotics as in #1 4. Concern for pneumonia. Present on admission. Ongoing - CT showed Trace air space opacities within the right middle lobe suggestive of aspiration or infection. - White count as in #1, trending down - Pro calcitonin remains elevated 1.0 today - Antibiotics as in #1 5. Acute kidney injury. Present on admission. Resolved - Elevated creatinine on admission, now normal - Most likely secondary to #2 - Continue IV fluids as in #1 - Monitor ins and outs 6. Bradycardia. Not present on admission. Ongoing - Patient began admission tachycardic most likely secondary to infectious state - Heart rate has steadily declined to a consistent bradycardic state, dropping as low as 30s. - ECG shows sinus rhythm first degree block TX interval 0.21. Possible old anterior TX - Echo initial read showed no wall motion abnormalities. Official read pending 6. Hyponatremia. Present on admission. Ongoing - Sodium has remained at 1322 days. - Most likely secondary to #2 - Fluids as in #1 - Continue to closely monitor ins and outs - Consider discontinuing fluids and initiating diuretics 7. Encephalopathy. Present on admission. Ongoing - Most likely secondary to infectious state - Antibiotics as in #1 - Patient currently intubated with sedation being weaned - Continue to monitor 8. Diabetes mellitus type II. Present on admission. Ongoing - No diabetes medication mentioned in med rec - A1c 5.1 - low dose correctional scale insulin 9. Lung cancer. Present on admission. Ongoing - CT showed cavitary lesion, decreased in size from previous study and right upper lobe pulmonary nodule, stable when compared to previous study - Reportedly finished chemotherapy and/or radiation treatment 30 days prior. Tomorrow was 30 day check up from last cancer treatment. 10. Abdominal aortic aneurysm. Present on admission. Ongoing - Incidental CT finding showed a 3 cm in diameter aneurysm of distal abdominal aorta. As well as moderate severe atherosclerosis. - Recommend follow-up and monitoring as outpatient DVT prophylaxis: Heparin GI prophylaxis. Famotidine twice a day Disposition: Patient remains intubated and sedated, tomorrow we will try sedation vacation followed by pressure support trial. Patient Status: Patient was admitted under inpatient status with expected length of stay greater than two midnights due to severity of presenting symptoms , risk of adverse event, and complexity of treatment plan. Pain Evaluation: Adequate Pain Control VTE Prophylaxis: SCDs VTE Mechanical Devices: Intermittant Pneumatic CD Resuscitation Status: CPR: Attempt Resuscitation Attending Statement The patient was seen and examined together with Dr. Saxena on 05/22/2016 and I agree with the history, exam and plan as outlined in the note above. . ALEK SAXENA DO May 22, 2016 06:47 Luiz Dutton MD May 23, 2016 18:00
--- NOTE | 2016-05-22 14:22 | DRSVH ---
[facility] [address] [place] [address] Echocardiogram Report Name: DAVION DAVIDSON MStudy Date: 05/22/2016 Height: 70 in Hospital Exam Location: [facility] Weight: 264 lb Gender: Male BSA: 2.3 m2 : 1940 Age: 75 yrs BP: 102/48 mmHg Reason For Study: BRADYCARDIA Ordering Physician: HOSPITALIST [facility] Performed By: Umberto Brooks Referring Physician: Dr. Shalom Noel Interpretation Summary The left ventricle is normal in size. The ejection fraction is estimated to be 60-65%. The right ventricle is normal in size and function. The aortic valve is not well visualized. Leaflet mobility is moderately reduced. The peak aortic velocity is 2.4 m/sec. The aortic valve mean gradient is 13 mmHg. There is no hemodynamically significant valvular aortic stenosis. There is mild to moderate aortic regurgitation. There is a moderate left-sided pleural effusion. Procedure: A two-dimensional transthoracic echocardiogram with color flow and Doppler was performed. The study quality was technically adequate. There is no prior echocardiogram noted for this patient. The patient was mostly supine and on a ventilator during the exam. A contrast injection of Definity was performed to improve assessment of LV function. The patient was in normal sinus rhythm during the exam. Left Ventricle: The left ventricle is normal in size. There is normal left ventricular wall thickness. There is no thrombus. The ejection fraction is estimated to be 60-65%. There are no focal wall motion abnormalities. Spectral Doppler of the mitral valve is reversed, with an E/A wave ratio < 1.0. Right Ventricle: The right ventricle is normal in size and function. Atria: There is mild biatrial enlargement. The interatrial septum is intact with no evidence for an atrial septal defect. Mitral Valve: There is mild mitral annular calcification. There is mild mitral regurgitation. Aortic Valve: The aortic valve is trileaflet. The aortic valve is mildly calcified. Leaflet mobility is moderately reduced. The aortic valve is not well visualized. The peak aortic velocity is 2.4 m/sec. The aortic valve mean gradient is 13 mmHg. There is no hemodynamically significant valvular aortic stenosis. There is mild to moderate aortic regurgitation. Tricuspid Valve: The tricuspid valve is normal in structure and function. There is trace tricuspid regurgitation. Right ventricular systolic pressure is estimated to be 32 mmHg plus the clinically estimated CVP which cannot be estimated on this exam. Pulmonic Valve: The pulmonic valve is not well visualized. There is trace pulmonic regurgitation. Great Vessels: The aortic root is normal size. The dimensions of the ascending aorta are normal. The pulmonary artery is normal size. Inspiratory collapse cannot be assessed because of mechanical ventilation, thus CVP cannot be estimated.. The IVC has a measurement of 16 mm. Pericardium/ Pleura There is no pericardial effusion. There is a moderate left-sided pleural effusion. Incidental finding of a hepatic cyst measuring approximately 5.7 cm x 7.4 is noted. MMode/2D Measurements & Calculations LVIDd: 5.4 cm LA dimension: 3.8 cm RA long axis LVOT diam LVIDs: 2.7 cm FS: 49.9 % LA A2 area: 28.1 cm RA area Ao root diam EPSS: 0.54 cm LA A4 area: 26.3 cm IVSd: 0.85 cm LA length (vol): 7.3 cm : 23.1 cm Aortic Jxn LVPWd: 0.98 cm LA vol: 86.2 ml RA vol: 80.6 ml LA vol index RA asc Aorta : 34.3 mm2 Diam: 3.0 cm IVC diam: 1.6 cm LV oswald. diameter/BSA LV sys. diameter/BSA RVD1 (basal) RVD2 (mid) (cm/m^2): 2.3 (cm/m^2): 1.2 : 3.5 cm Doppler Measurements & Calculations Ao V2 max MV E max alon MV E/A: 0.78 TR max alon : 240.7 cm/sec : 69.3 cm/sec Med Peak E' Alon : 282.0 cm/sec Ao max P.2 mmHg MV A max alon TR max PG Ao mean P.8 mmHg : 88.4 cm/sec E/E' med: 13.6 : 31.8 mmHg LVOT Max Alon Lat Peak E' Alon PA V2 max : 112.5 cm/sec : 71.9 cm/sec E/E' lat: 7.9 PA mean PG SANDRA(I,D): 2.1 cm E/e' average sev ratio: 0.56 PA Accel Time AI P1/2t: 758.2 msec Pulm A Revs Dur : 0.10 sec AI dec slope : 161.7 cm/s2c MV A dur : 0.14 sec MV dec time: 0.23 sec Ao V2 mean LV V1 max PG PA V2 mean : 170.6 cm/sec : 52.8 cm/sec Ao V2 VTI: 54.3 cm LV V1 VTI PA pr(Accel) : 30.3 cm : 25.8 mmHg SANDRA(V,D): 1.8 cm2 SANDRA indexed to BSA Pulm A Revs Dur - MV A (cm^2/m^2): 0.91 Dur: -0.01 msec Reading Physician:EVONNE
--- NOTE | 2016-05-22 14:26 | DRSVH ---
PROCEDURE: CT CHEST, ABDOMEN AND PELVIS WITHOUT CONTRAST ([id number]) INDICATIONS: Sepsis with multplle poss sources. TECHNIQUE: After the administration of oral contrast, 5 mm thick sections acquired from the lung apices to the s ymphysis pubis. 5 mm thick coronal and sagittal reformats acquired, with additional 7 mm coronal MIP reformats through the lungs. For radiation dose reduction, the following was used: automated expos ure control, adjustment of mA and/or kV according to patient size. COMPARISON: Chest 05/22/2016; CT KUB 05/20/2016; CT chest 05/20/2016 FINDINGS: Image quality: Excellent. CHEST: Lungs and pleura: 3 mm nodule in the central right apex, image 11, unchanged. Cavitary lesion in the right lower lobe medially with air fluid level shows an irregular nodular mass at its superior margin and this is slightly larger than on last exam, measuring 2.3 cm transverse compared to 1.4 cm on wojciech or. There is patchy airspace disease in the anterior and lateral right middle lobe with new atelectas is and infiltrate in the posterior left lower lobe. There are now small pleural effusions bilaterally , right greater than left. Mediastinum: Heart size is normal. No pericardial effusion. No mediastinal adenopathy by CT size c riteria. Thoracic aorta and central pulmonary arteries are normal in size. Esophagus is normal in c aliber. No hiatal hernia. Chest wall: No axillary or supraclavicular adenopathy by size criteria. Thyroid gland appears ene l. ABDOMEN: Solid organs: Liver and spleen are normal in size. Gallbladder is distended with fluid. Pancreas i s normal in contours. No adrenal nodules. Both kidneys contain cortical cysts. The calcification th at was previously obstructing the left kidney at the UPJ is now within a posterior infundibulum and t here is a left ureteral stent in place with resolution of the hydronephrosis Mild bilateral perinephric fat stranding. Peritoneum and bowel: Small and large bowel loops are normal in caliber and wall thickness. Normal a ppendix. No free fluid or air. Nodes and vessels: No retroperitoneal or mesenteric adenopathy by size criteria. Atheromatous aortic is aneurysmal distally at 3.3 cm diameter. The inferior vena cava is normal in size. Miscellaneous: No ventral hernias. PELVIS: Genitourinary: Bladder is collapsed around a Mason catheter. Generalized bladder wall thickening is again noted. Miscellaneous: No inguinal hernias or adenopathy. Bones: No suspicious bony lesions. Mild compression T9 vertebral body. IMPRESSION: 1. Interval worsening of pulmonary disease since prior CT chest, now with patchy areas of right upper and middle lobe infiltrates, consolidation in the left lower lobe compatible with pneumonia, persist ence of the cavitated lesion in the right lower lobe associated with an enlarging somewhat spiculated soft tissue component at the superior margin and development of small bilateral pleural effusions. 2. Interval resolution of left hydronephrosis secondary to stent placement, large calcification now i n the left kidney causing no obstruction. 3. Diffuse bladder wall thickening which is nonspecific but could represent chronic outlet obstructio n or cystitis. Mason catheter in place. Dictated by: Epifanio Lovell M.D. on 05/22/2016 at 14:09 Approved by: Epifanio Lovell M.D. on 05/22/2016 at 14:25
--- NOTE | 2016-05-22 14:26 | NUR ---
Evaluation completed. Please go to "Notes" then click on "Assessments and Notes" (bottom left corner of screen). Then select appropriate discipline tab on top of screen.
--- NOTE | 2016-05-22 17:44 | NUR ---
Extubation/hypoglycemia/agitation Pt extubated at 1207. Maintains sats of 97% on 4L NC, RR in the 20s. Oriented to self and family, does not know where he is, time,date or who president is. He is restless and pulling on his ART lines, IJ and Mason, so restraints remain in place. Pressors were weaned off (see CCU flow sheet) and pt downgraded to PCC. Checked BG this afternoon and it was 61. Notified MD who ordered amp of D50 and fluids changed to D5NS at 100. Rechecked x2, with repeat at 75 and 86. Frequent rounding and patient care continue. Will need sitter due to pt trying to get out of bed constantly even with restraints on. Notified MD and extension service specialist in charge
--- NOTE | 2016-05-22 18:21 | PROG NOTE ---
[address] [address] PROGRESS NOTE PATIENT: DAVION DAVIDSON : 1940 MR#: [id number] ADMIT: 05/20/2016 JOB ID: [id number] DATE: 05/22/2016 PROBLEM LIST: 1. Respiratory failure. 2. Sepsis. 3. Multiple electrolyte abnormalities. 4. Bronchogenic carcinoma, status post radiation therapy. SUBJECTIVE: None. Patient sedated on ventilator. Temperature 37, pulse 48-56. Respiratory rate 13 with ventilator set at 13. Blood pressure 102/48. O2 sat on FiO2 of 30%, PEEP of 5, is 98%. I and O shows 5.5 L in, 2.1 L out. Sedated, comfortable-appearing. Eyes: Conjunctivae are pink. Pupils about 2-3 mm in diameter. Chest: Fairly good breath sounds. Lung saldana are relatively clear. No use of accessory muscles. Heart: Regular rhythm. Heart tones normal. Abdomen soft. Bowel tones are present. Extremities: No pretibial edema. LABORATORY DATA: Shows a white count of 9600, with 88 polymorphonuclears, no bands, 2.9 lymphocytes, 7.5 monocytes. Hemoglobin 11.6 and stable. Platelet count 201,000 and stable. Sodium 132, potassium 3.6, chloride 101, CO2 is 18. BUN 16, creatinine 1.1. Calcium 7.5, with albumin of 2.0. Magnesium 2. Total bilirubin 0.7. Transaminases normal. Urine culture growing mixed urogenital cristy. Urine for Streptococcal pneumoniae antigen is negative. Sputum shows rare polys. No organisms seen. ASSESSMENT: 1. Ventilatory failure. Pulmonary mechanics seem reasonable with a relatively low peak inspiratory pressure. I think, at this point, we need to lighten him up by decreasing if not eliminating his propofol and slightly decreasing his fentanyl and see if we can get him to the point where he is awake or at least arousable and do a spontaneous breathing trial and see where we are with regard to extubation. 2. Multiple electrolyte abnormalities. For the most part, these have corrected. 3. Bradycardia. EKG shows atrial bradycardia, probably sinus with 1st degree block. Old EKGs demonstrate the same finding. PLAN: 1. Discontinue propofol. 2. Decrease fentanyl to maybe 50 mcg per hour. 3. A spontaneous breathing trial, when awake.
[2016-05-22] MEDS: Dextrose 5% 0.9% NaCl 1,000 ML IV SCH (20:00)
[2016-05-22] MEDS: fentaNYL 2,500 mCg/250 mL IV Premix IV SCH (21:55)
[2016-05-23] VITALS (7 sets, daily range): BP systolic 133–153; BP diastolic 71–85; PULSE 89–109; RESP 16–20; O2SAT 94–98
[2016-05-23] MEDS: Heparin 5,000 Unit/mL Inj SUBQ SCH ×3 (01:02→17:13)
[2016-05-23] MEDS: Piper-Tazo 3.375 Gm/50 mL D5W Minibag Plus - Q8H over 4 hrs IV SCH ×6 (01:14→17:14)
[2016-05-23] MEDS: Dextrose 5% 0.9% NaCl 1,000 ML IV SCH (01:19)
[2016-05-23 03:15] LABS: BASOPHILS % (AUTO) 0.3 % (0-3); EOSINOPHILS % (AUTO) 4.2 % (0-5); Mean Corpuscular Hemoglobin 28.2 pg (27.0-35.0); Mean Corpuscular Volume 87.3 fL (81-100); NEUTROPHILS % (AUTO) 79.8 % (40-74); Platelet Count 203 bil/L (150-400)
[2016-05-23 03:51] LABS: Magnesium 1.8 mg/dL (1.6-2.6)
--- NOTE | 2016-05-23 04:44 | NUR ---
Confusion/ Blood glucose Pt alert to self only. Pt pleasantly confused. Restraints in place to protect lines. Vitals stable. Fentynal gtt weaned off. PRN seroquel given at HS for restlessness/ confusion with good results. pt sleeping intermittently overnight. Blood glucose frequently assessed overnight. BG in the 80s, 0300 Glucose noted to be 71. Resident made aware. order received to increase d5 NS to 125 and recheck BG at 5 am. Will update MD on findings.
[2016-05-23] MEDS: Dextrose 10% 500 ML IV SCH ×2 (05:32→10:20)
[2016-05-23] MEDS: Insulin LISPRO 300 Unit/3 mL Inj SUBQ SCH ×4 (07:51→22:00)
[2016-05-23] MEDS: Nystatin 100,000 Unit/Gm 15 Gm Powder TOPICAL SCH ×2 (07:52→20:52)
--- NOTE | 2016-05-23 07:57 | DRSVH ---
PROCEDURE: X-RAY CHEST ONE VIEW, PORTABLE ([id number]) INDICATIONS: vent TECHNIQUE: One view of the chest was acquired. COMPARISON: [facility], CT, CT CHEST ABD PELVIS WO CON, 05/22/2016, 13:52. [facility], CR, XR CHEST 1VW (PORTABLE), 05/22/2016, 4:43. FINDINGS: Surgical changes and devices: Right internal jugular central line with the tip at the level of the az ygos vein. shipping support clerk leads are seen over the chest. The endotracheal tube previously present izquierdo s been removed. Lungs and pleura: No pleural effusions or pneumothorax. Lungs show patchy areas of density bilateral ly unchanged since the recent chest x-ray. There is tracheal narrowing at the level of the aortic arc h suggesting lack of structural support of the tracheal cartilages. Mediastinum: Mediastinal contours appear normal. Heart size is normal. Bones and chest wall: No suspicious bony lesions. Overlying soft tissues appear unremarkable. IMPRESSION: 1. Persistent patchy areas of density at the lung bases thought to represent some pneumonia. 2. Question of tracheomalacia because of narrowing of the trachea at the level of the aortic arch. Dictated by: Sung Womack M.D. on 05/23/2016 at 7:51 Approved by: Sung Womack M.D. on 05/23/2016 at 7:56
--- NOTE | 2016-05-23 08:37 | NUR ---
Evaluation completed. Please go to "Notes" then click on "Assessments and Notes" (bottom left corner of screen). Then select appropriate discipline tab on top of screen.
[2016-05-23] MEDS: levoFLOXacin Inj 750 MG in IV Premix 1 EACH IV SCH (10:34)
[2016-05-23] MEDS: Furosemide 10 mg/mL 4 mL Inj IVPUSH SCH (14:00)
--- NOTE | 2016-05-23 14:32 | PCM.PNMED ---
Subjective Date of Service May 23, 2016 Subjective Overnight: Patient remained in sinus rhythm with a tachycardic rate 90s to 100s. With some PVCs. He was found to be hypoglycemic and was given D10. Today: Today patient awake and alert but remains cephalopathic, reportedly not mentating at baseline. Family not present for interview. Conversing with patient he endorses a abdominal discomfort, he perseverates questions and seems generally confused. Unable to ascertain a review of systems secondary to mental state. Exam Vital Signs Vital Sign - Last Date Time Temp Pulse Resp B/P Pulse Ox O2 Delivery O2 Flow Rate FiO2 05/23/16 12:30 37.0 100 18 133/84 98 Nasal Cannula 2.00 05/22/16 12:00 30 Intake and Output 05/22/16 05/22/16 05/23/16 Cumulative From/Thru 15:00 23:00 07:00 05/20/16 14:10 - 05/23/16 05:14 Intake Total 1905 ml 1394 ml 49096 ml Output Total 1300 ml 1800 ml 6180 ml Balance 605 ml -406 ml 9065 ml Intake Oral 60 ml 60 ml IV Total 1905 ml 1334 ml 08095 ml Output Urine Total 1300 ml 1800 ml 5900 ml Gastric Drainage Total 280 ml # Bowel Movements 0 0 Exam General: Patient awake and alert laying in bed in 2 point soft restraints. Opens eyes spontaneously vocalize responses questions though and appropriate. HEENT: Normocephalic, atraumatic. External ears without defect. Pupils equal, round, and reactive to light and accommodation. Anicteric sclerae, moist conjunctivae, and no lid lag. Oropharynx free of erythema and cobble stoning with moist mucosa. Neck: No jugular venous distension. No bruits. IJ in place with bandage intact Cardiovascular: Tachycardic rate with regular rhythm no murmurs appreciated Pulmonary: Clear to auscultation bilaterally with no crackles. Normal respiratory effort with no use of accessory muscles. Abdomen: Bowel tones present. Soft, obese. Nontender to palpation 4 quadrants Extremities: No clubbing, cyanosis, edema appreciated Skin: Normal temperature, turgor, and texture Neurological: Cranial nerves grossly intact. Psychiatric: Awake and alert and able to communicate and follow commands though confused. A/O - /4 - aware of person. IVs and Medications Medications Reviewed: Medications were reviewed in detail Lab and Diagnostics Result Diagram: 05/23/16 0306 05/23/16 0306 Microbiology Sputum negative, MRSA negative, strep pneumo urine antigen negative, blood negative to date, influenza screen negative, respiratory viral PCR negative. Urine showed mixed urogenital cristy. X-Rays, CTs and MRIs . X-RAY CHEST ONE VIEW, PORTABLE IMPRESSION: A cavitary mass in the right mid lung medially. No acute cardiopulmonary disease. Dictated by: Rick Salcedo M.D. on 05/20/2016 at 15:45 CT CHEST WITHOUT CONTRAST IMPRESSION: 1. 3 mm right upper lobe pulmonary nodule which is demonstrated stability when compared to study dated 01/03/16. Which has demonstrated 5 months of stability. Please see followup guidelines below. 2. Decreased size of the right lower lobe superior segment gas-filled cavitary lesion when compared with the study dated 01/03/16. This finding suggests persistent communication with a subsegmental bronchus. 3. Trace air space opacities within the right middle lobe suggestive of aspiration or infection. 4. Findings suspicious for left hydronephrosis which is new when compared with the prior study. Renal ultrasound or CT KUB would be helpful to further characterize this finding if clinically indicated. Fleischner Society criteria for SOLID lung nodule followup. Nodule size (mm)Low-risk patientHigh-risk [id number] follow-up neededFollow-up at 12 mo; if no change, no further follow-up>[id number] CT at 12 mo; if no change, no further follow-up needed.Initial follow-up CT at 6-12 mo, then 18-24 mo if no change. >6-8Initial follow-up CT at 6-12 mo, then 18-24 mo if no change. Initial follow-up CT at 3-6 mo, then 9-12 mo and 24 mo if no change. > 8Follow-up CT at 3, 9, 24 mo. Or PET and/or biopsy.Same as for low-risk pts. Fleischner Society criteria for SUB-SOLID lung nodule followup. Solitary pure ground-glass nodules5 mm or lessNo followup needed. >5 mm3 mo follow-up CT to confirm persistence. Then annual CT for 3 years. Part-solid nodules3 mo follow-up CT to confirm persistence. If persistent with solid component <5 mm, annual CT for at least 3 years. If solid component is 5 mm or more, biopsy or surgical resection. Consider PET-CT for lesions > 10 mm. Multiple sub-solid nodulesPure ground glass nodules [address] at 2 and 4 years. Pure ground glass nodules >5 mm without dominant lesion. [address] to confirm persistence, then annual followup CT for at least 3 years. Dominant nodule(s) with part-solid or solid component. [address] to confirm persistence. If persistent, consider biopsy or surgical resection, rambo if lesions have >5 mm solid component. Dictated by: Alma Burroughs M.D. on 05/20/2016 at 16:06 CT KUB IMPRESSION: 1. A 14 x 8 mm obstructive stone is present in the proximal left ureter causing moderate hydronephrosis. 2. Bilateral renal cysts. 3. Mild concentric thickening of urinary bladder. This finding may be secondary to cystitis or chronic bladder outlet obstruction. Recommend clinical correlation. 4. Subpleural infiltrates and right basilar consolidation suspicious for pneumonia. 5. 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 Dictated by: Rick Salcedo M.D. on 05/20/2016 at 17:08 X-RAY CHEST ONE VIEW, PORTABLE IMPRESSION: 1. Increased left basilar pneumonia. 2. No change in right greater than left bilateral midlung pneumonia. Dictated by: Tania Murphy M.D. on 05/21/2016 at 9:00 X-RAY RETROGRADE UROGRAPHY IMPRESSION: Catheterization of left collecting system. Dictated by: Tania Murphy M.D. on 05/21/2016 at 8:53 X-RAY CHEST ONE VIEW, PORTABLE IMPRESSION: Lines and tubes in normal position, stable bilateral pneumonia greater on the right than the left. No pleural effusion associated. Dictated by: Lorenzo Manrique M.D. on 05/22/2016 at 11:02 CT CHEST, ABDOMEN AND PELVIS WITHOUT CONTRAST IMPRESSION: 1. Interval worsening of pulmonary disease since prior CT chest, now with patchy areas of right upper and middle lobe infiltrates, consolidation in the left lower lobe compatible with pneumonia, persistence of the cavitated lesion in the right lower lobe associated with an enlarging somewhat spiculated soft tissue component at the superior margin and development of small bilateral pleural effusions. 2. Interval resolution of left hydronephrosis secondary to stent placement, large calcification now in the left kidney causing no obstruction. 3. Diffuse bladder wall thickening which is nonspecific but could represent chronic outlet obstruction or cystitis. Mason catheter in place. Dictated by: Epifanio Lovell M.D. on 05/22/2016 at 14:09 X-RAY CHEST ONE VIEW, PORTABLE IMPRESSION: 1. Persistent patchy areas of density at the lung bases thought to represent some pneumonia. 2. Question of tracheomalacia because of narrowing of the trachea at the level of the aortic arch. Dictated by: Sung Womack M.D. on 05/23/2016 at 7:51 12-lead ECG Sinus bradycardia with GA interval showing first-degree heart block. 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 Read by Dr. Saxena for 05/22/2016 Cardiac Echo Impressions Echocardiogram Report Interpretation Summary The left ventricle is normal in size. The ejection fraction is estimated to be 60-65%. The right ventricle is normal in size and function. The aortic valve is not well visualized. Leaflet mobility is moderately reduced. The peak aortic velocity is 2.4 m/sec. The aortic valve mean gradient is 13 mmHg. There is no hemodynamically significant valvular aortic stenosis. There is mild to moderate aortic regurgitation. There is a moderate left-sided pleural effusion. Assessment & Plan Mr. Roldan is a 75-year-old male with past medical history of lung cancer treated with radiation and chemotherapy per family, diabetes mellitus type II, MAHNAZ on CPAP, dyslipidemia, admitted for sepsis with the underlying cause is likely hydronephrosis secondary to obstructing ureteral stone. Patient may also have a concomitant pneumonia. Hospital day 5. 1. Severe Sepsis. Present on admission. Improving - Sepsis criteria met leukocytosis, tachypnea, tachycardia and lactic acidosis - Probable source hydronephrosis secondary to obstructing ureteral stone - CXR continues to show probable pneumonia, confirmed with CT imaging - Hold IV fluid replacement - Azithromycin and ceftriaxone given in the ED - Infectious disease following, we appreciate the recommendations - Continue Zosyn - Lactic acid normalized - Urology signed off - Repeat urine culture pending - Blood culture positive for gram-negative rods 1 of 2 - Discontinued levofloxacin secondary to increasing encephalopathy 2. Hydronephrosis. Present on admission. Resolved - CT KUB showed a 14 x 8 mm obstructive stone in the proximal left ureter - Repeat CT post surgery shows the calcification which was previously obstructing left kidney at the UPJ is now within a posterior infundibulum- with resolution of the hydronephrosis - Dr. Guevara urology consultation as in #1 - Continue antibiotics as in #1 3. Concern for pneumonia. Present on admission. Ongoing - Imaging continues to show continuation and now worsening of right upper middle lobe infiltrates and consolidation in the left lower lobe - White count has normalized - Pro calcitonin continues to trend down 0.6 - Antibiotics as in #1 - Will Consider adding a meropenem and caspofungin for more atypical coverage 4. Acute kidney injury. Present on admission. Resolved - Elevated creatinine on admission, now normal - Most likely secondary to #2 - IV fluids held - Patient fluid +9065 - Lasix 40 mg IV given - Monitor ins and outs 5. Tachybradycardia syndrome. Not present on admission. Resolved - Patient began admission tachycardic most likely secondary to infectious state - Patient had episode of asymptomatic bradycardia sustained - ECG shows sinus rhythm first degree block GA interval 0.21. Possible old anterior AK - ECHO showed EF 60-65, mild to moderate aortic regurg - Continue to monitor, currently hemodynamically stable 6. Hyponatremia. Present on admission. Resolved - Sodium normalized 136 - Most likely secondary to #2 - Fluids as in #1 - Lasix as in #5 - Continue to closely monitor ins and outs 7. Encephalopathy. Present on admission. Ongoing - Most likely secondary to infectious state, possible medication reaction - Also possible this is secondary to postsurgical/post intubation hospital delirium. - Antibiotics as in #1 - discontinued levofloxacin - No neurological deficits, hemiparesis or obvious signs of increased intracranial pressure - If no improvement by tomorrow we will consider additional imaging - Continue to monitor 8. Diabetes mellitus type II. Present on admission. Ongoing - No diabetes medication mentioned in med rec - Patient has been hypoglycemic requiring administration of D5/D10 - A1c 5.1 - Speech therapy eval - patient on soft pured diet - low dose correctional scale insulin - Continue to monitor 9. Lung cancer. Present on admission. Ongoing - CT showed cavitary lesion, decreased in size from previous study and right upper lobe pulmonary nodule, stable when compared to previous study - Reportedly finished chemotherapy and/or radiation treatment 30 days prior. Tomorrow was 30 day check up from last cancer treatment. 10. Abdominal aortic aneurysm. Present on admission. Ongoing - Incidental CT finding showed a 3 cm in diameter aneurysm of distal abdominal aorta. As well as moderate severe atherosclerosis. - Recommend follow-up and monitoring as outpatient DVT prophylaxis: Heparin GI prophylaxis. Famotidine twice a day Disposition: Patient remains encephalopathic, unknown etiology. Most likely remain inpatient at least through the weekend. Pain Evaluation: Adequate Pain Control VTE Prophylaxis: SCDs VTE Mechanical Devices: Intermittant Pneumatic CD Resuscitation Status: CPR: Attempt Resuscitation Attending Statement The patient was seen and examined together with Dr. Saxena on 05/23/2016 and I agree with the history, exam and plan as outlined in the note above. . ALEK SAXENA DO May 23, 2016 13:13 Luiz Dutton MD May 23, 2016 18:00
[2016-05-23] MEDS ORDERED: KCl 40 mEq/100 mL Premix (K 3 - 3.7 & Creat < 2) IV ONE (15:05)
--- NOTE | 2016-05-23 15:32 | NUR ---
NUTRITION FOLLOW-UP: ASSESS: Pt is a 75 YO male admitted to CCU with sepsis and hydronephrosis secondary to ureteral stone. Pt underwent surgery and currently has L. ureteral stent. Pt. successfully extubated yesterday. Diet advanced to pureed, nectar thick liquids today. PO intake not yet recorded. Patient remains restrained, confused beyond baseline. Code status: full. PMHX: T2DM, MAHNAZ, dyslipidemia, lung ca, dementia LABS: No labs ordered today. MEDS: Seroquel. GI: 0 BM reported. SKIN: There are no pressure related injuries at this time, per New Grad Rn. WT: 118.3 kg, BMI 37.0 kg/m2, IBW 75.4kg. Admit weight: 117.0 kg. DIET: NPO EST. NEEDS: BMI Kcals: 2340-2575kcal/day (20-22kcal/kg) Pro: 110-135g/day (1.5-1.8g/kg IBW) Fluids:~2925-3510ml/day (25-30ml/kg) NUTRITION DIAGNOSIS: 1) Inadequate oral intake related to decreased ability to consume sufficient energy as evidenced by current NPO status - IMPROVED WITH DIET ADVANCE. NUTRITION INTERVENTION: 1) Trophic enteral feeding likely not initiated due to extubation yesterday. In the event pt. not able to meet nutrient needs orally, recommend reconsideration of nutrition support. MONITOR / EVAL: Diet advance / tolerance, O intake, wt, labs, GI, POC, nutrition status. Will continue to monitor per high nutrition risk guidelines.
--- NOTE | 2016-05-23 15:48 | NUR ---
Agitation/restraints Patient restless, agitated stating he "needs to get going" this morning. Patient confused, oriented to self only. Denies pain discomfort. Bed alarm went off, patient was found standing on far side of bed pulling at central line. LINE SERVICE SUPERVISOR and this RN tried to help patient back into bed, patient became increasingly agitated and began pushing staff, Hanna Carbone was called. Several staff members arrived and patient agreed to get back in bed. Once patient was in bed soft wrist restraints were applied, as well as PRN seroquel given. IV therapy RN called to check central line which has been infusing without issue. Patient continues to try and get up out of bed and pull at lines. PRN ativan given with little effect. PRN haldol given and patient is resting with eyes closed. Family at bedside, sitter outside of room and frequent checks in place for safety.
[2016-05-24] VITALS (9 sets, daily range): BP systolic 107–154; BP diastolic 62–91; PULSE 85–119; RESP 14–20; O2SAT 90–97
[2016-05-24] MEDS: Heparin 5,000 Unit/mL Inj SUBQ SCH ×3 (01:29→17:18)
[2016-05-24] MEDS: Piper-Tazo 3.375 Gm/50 mL D5W Minibag Plus - Q8H over 4 hrs IV SCH ×6 (01:29→17:19)
[2016-05-24 04:20] LABS: BASOPHILS % (AUTO) 0.2 % (0-3); EOSINOPHILS % (AUTO) 6.8 % (0-5); MONOCYTES % (AUTO) 13.3 % (4-12); Mean Corpuscular Hemoglobin 28.1 pg (27.0-35.0); Mean Corpuscular Volume 86.6 fL (81-100); NEUTROPHILS % (AUTO) 70.8 % (40-74); Platelet Count 220 bil/L (150-400)
[2016-05-24 05:11] LABS: Magnesium 1.6 mg/dL (1.6-2.6); Phosphorus 3.2 mg/dL (2.5-4.9)
--- NOTE | 2016-05-24 06:39 | NUR ---
Restless/Restraints Patient continues to be restless, states he needs to "get going," attempts to get out of bed, reaches for lines/tubes. Unable to be reoriented. "I'm in long-term." When advised that this is the hospital and he has been ill, stated "I'm in a long-term hospital." Continued soft 2-point restraints with sitter for observation. Seroquel given at HS with slight improvement in patient's agitation and restlessness; patient sleeping off and on but picking/pulling/restless when awake. Continue to monitor.
[2016-05-24] MEDS: Insulin LISPRO 300 Unit/3 mL Inj SUBQ SCH ×4 (08:00→22:00)
[2016-05-24] MEDS ORDERED: KCl 40 mEq/100 mL (CENTRAL) 40 MEQ in IV Premix 1 EACH IV ONE (08:20)
[2016-05-24] MEDS: Nystatin 100,000 Unit/Gm 15 Gm Powder TOPICAL SCH ×2 (09:05→21:29)
--- NOTE | 2016-05-24 10:04 | DRSVH ---
PROCEDURE: X-RAY CHEST ONE VIEW, PORTABLE ([id number]) INDICATIONS: pneumonia TECHNIQUE: One view of the chest was acquired. COMPARISON: None. FINDINGS: Surgical changes and devices: Right-sided central venous catheter with the tip projecting in the mid SVC Lungs and pleura: No pleural effusion or pneumothorax. Patchy right perihilar consolidative opacities Mediastinum: Mediastinal contours appear normal. Heart size is normal. Bones and chest wall: No suspicious bony lesions. Overlying soft tissues appear unremarkable. IMPRESSION: Right perihilar pneumonia and/or aspiration. Dictated by: Paulie Cohen M.D. on 05/24/2016 at 9:57 Approved by: Paulie Cohen M.D. on 05/24/2016 at 10:02
[2016-05-24] MEDS ORDERED: Sodium Chloride LOK Flush 10 mL Syringe IVFLUSH PRN ×2 (12:45)
--- NOTE | 2016-05-24 13:45 | NUR ---
DC restraints Soft wrist restraints dc'd at 1200 today. Pt. has been cooperative and pleasant this morning. He has not been pulling at restraints or trying to get out of bed. Sitter and family present to monitor with restraints off. Pt. sitting in chair for lunch. Will continue to monitor.
--- NOTE | 2016-05-24 15:48 | NUR ---
Social Work Note: Continued Discharge Planning Data& Assessment: Per MD pt mentation is improving today and pt is slightly less confused. Pt also ambulated 10ft with PT with FWW. PT is recommending home with supervision and home health services. ABHINAV spoke with pt daughter/DPORLANDO Giles who explained that pt will be discharging to her home in [facility] health services. Pt has had [facility] in the past, Pt family preferences is for [facility] PT, RN and [facility] [employer] again. ABHINAV provided referral to Andrea with [facility], access provided as well. Pt daughter will bring in copy of [facility] paperwork tomorrow. Pt daughter denies any other needs at this time. SW to continue to follow. Plan: Anticipated discharge home via POV with [facility] PT, RN and [facility] to follow. . Pt daughter denies any other needs at this time. ABHINAV to continue to follow. FABIENNE Estrada
[2016-05-24] MEDS: Furosemide 10 mg/mL 4 mL Inj IVPUSH SCH (15:54)
--- NOTE | 2016-05-24 20:24 | PCM.PNMED ---
Subjective Date of Service May 24, 2016 Subjective Patient is a 75-year-old male with history of lung cancer treated with radiation and chemotherapy, diabetes mellitus type II, MAHNAZ on CPAP, dyslipidemia , admitted for sepsis with the underlying cause likely hydronephrosis secondary to obstructing ureteral stone. Patient may also have a concomitant pneumonia. Overnight the patient continues to be restless. This morning the patient is alert and conversant but not oriented to time or place. His family is at bedside and they report his confusion is improving. Patient reports back pain but otherwise denies chest pain, shortness of breath, nausea, emesis, abdominal pain. Exam Vital Signs Vital Sign - Last Date Time Temp Pulse Resp B/P Pulse Ox O2 Delivery O2 Flow Rate FiO2 05/24/16 16:11 36.4 93 20 152/78 94 Room Air 05/24/16 12:23 2.00 05/22/16 12:00 30 Intake and Output 05/23/16 05/23/16 05/24/16 Cumulative From/Thru 15:00 23:00 07:00 05/20/16 14:10 - 05/24/16 06:38 Intake Total 1096 ml 493 ml 15602 ml Output Total 4650 ml 2000 ml 53244 ml Balance -3554 ml -1507 ml 4004 ml Intake Oral 150 ml 140 ml 350 ml IV Total 946 ml 353 ml 26511 ml Output Urine Total 4650 ml 2000 ml 27425 ml Gastric Drainage Total 280 ml # Bowel Movements 2 1 3 Exam General: Patient awake and alert laying in bed with two point soft restraints. No acute distress. Well nourished. Interacts appropriately. HEENT: Normocephalic, atraumatic. External ears without defect. Anicteric sclerae, moist conjunctivae, and no lid lag. Neck: No jugular venous distension. IJ in place with bandage intact Cardiovascular: Regular rate, regular rhythm, no murmurs appreciated Pulmonary: Clear to auscultation bilaterally with no crackles. Normal respiratory effort with no use of accessory muscles. Abdomen: Bowel tones present. Soft, obese. Nontender. Extremities: No clubbing, cyanosis, edema appreciated Skin: Normal temperature, turgor, and texture Neurological: Cranial nerves grossly intact. Psychiatric: Awake; Alert to person only. IVs and Medications Medications Reviewed: Medications were reviewed in detail Lab and Diagnostics Result Diagram: 4/9/17 0400 4/9/17 0400 Microbiology Sputum negative, MRSA negative, strep pneumo urine antigen negative, blood negative to date, influenza screen negative, respiratory viral PCR negative. Urine showed mixed urogenital cristy. X-Rays, CTs and MRIs . X-RAY CHEST ONE VIEW, PORTABLE IMPRESSION: A cavitary mass in the right mid lung medially. No acute cardiopulmonary disease. Dictated by: Rick Salcedo M.D. on 05/20/2016 at 15:45 CT CHEST WITHOUT CONTRAST IMPRESSION: 1. 3 mm right upper lobe pulmonary nodule which is demonstrated stability when compared to study dated 01/03/16. Which has demonstrated 5 months of stability. Please see followup guidelines below. 2. Decreased size of the right lower lobe superior segment gas-filled cavitary lesion when compared with the study dated 01/03/16. This finding suggests persistent communication with a subsegmental bronchus. 3. Trace air space opacities within the right middle lobe suggestive of aspiration or infection. 4. Findings suspicious for left hydronephrosis which is new when compared with the prior study. Renal ultrasound or CT KUB would be helpful to further characterize this finding if clinically indicated. Fleischner Society criteria for SOLID lung nodule followup. Nodule size (mm)Low-risk patientHigh-risk [id number] follow-up neededFollow-up at 12 mo; if no change, no further follow-up>[id number] CT at 12 mo; if no change, no further follow-up needed.Initial follow-up CT at 6-12 mo, then 18-24 mo if no change. >6-8Initial follow-up CT at 6-12 mo, then 18-24 mo if no change. Initial follow-up CT at 3-6 mo, then 9-12 mo and 24 mo if no change. > 8Follow-up CT at 3, 9, 24 mo. Or PET and/or biopsy.Same as for low-risk pts. Fleischner Society criteria for SUB-SOLID lung nodule followup. Solitary pure ground-glass nodules5 mm or lessNo followup needed. >5 mm3 mo follow-up CT to confirm persistence. Then annual CT for 3 years. Part-solid nodules3 mo follow-up CT to confirm persistence. If persistent with solid component <5 mm, annual CT for at least 3 years. If solid component is 5 mm or more, biopsy or surgical resection. Consider PET-CT for lesions > 10 mm. Multiple sub-solid nodulesPure ground glass nodules [address] at 2 and 4 years. Pure ground glass nodules >5 mm without dominant lesion. [address] to confirm persistence, then annual followup CT for at least 3 years. Dominant nodule(s) with part-solid or solid component. [address] to confirm persistence. If persistent, consider biopsy or surgical resection, rambo if lesions have >5 mm solid component. Dictated by: Alma Burroughs M.D. on 05/20/2016 at 16:06 CT KUB IMPRESSION: 1. A 14 x 8 mm obstructive stone is present in the proximal left ureter causing moderate hydronephrosis. 2. Bilateral renal cysts. 3. Mild concentric thickening of urinary bladder. This finding may be secondary to cystitis or chronic bladder outlet obstruction. Recommend clinical correlation. 4. Subpleural infiltrates and right basilar consolidation suspicious for pneumonia. 5. 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 Dictated by: Rick Salcedo M.D. on 05/20/2016 at 17:08 X-RAY CHEST ONE VIEW, PORTABLE IMPRESSION: 1. Increased left basilar pneumonia. 2. No change in right greater than left bilateral midlung pneumonia. Dictated by: Tania Murphy M.D. on 05/21/2016 at 9:00 X-RAY RETROGRADE UROGRAPHY IMPRESSION: Catheterization of left collecting system. Dictated by: Tania Murphy M.D. on 05/21/2016 at 8:53 X-RAY CHEST ONE VIEW, PORTABLE IMPRESSION: Lines and tubes in normal position, stable bilateral pneumonia greater on the right than the left. No pleural effusion associated. Dictated by: Lorenzo Manrique M.D. on 05/22/2016 at 11:02 CT CHEST, ABDOMEN AND PELVIS WITHOUT CONTRAST IMPRESSION: 1. Interval worsening of pulmonary disease since prior CT chest, now with patchy areas of right upper and middle lobe infiltrates, consolidation in the left lower lobe compatible with pneumonia, persistence of the cavitated lesion in the right lower lobe associated with an enlarging somewhat spiculated soft tissue component at the superior margin and development of small bilateral pleural effusions. 2. Interval resolution of left hydronephrosis secondary to stent placement, large calcification now in the left kidney causing no obstruction. 3. Diffuse bladder wall thickening which is nonspecific but could represent chronic outlet obstruction or cystitis. Mason catheter in place. Dictated by: Epifanio Lovell M.D. on 05/22/2016 at 14:09 X-RAY CHEST ONE VIEW, PORTABLE IMPRESSION: 1. Persistent patchy areas of density at the lung bases thought to represent some pneumonia. 2. Question of tracheomalacia because of narrowing of the trachea at the level of the aortic arch. Dictated by: Sung Womack M.D. on 05/23/2016 at 7:51 12-lead ECG Sinus bradycardia with AK interval showing first-degree heart block. 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 Read by Dr. Saxena for 05/22/2016 Cardiac Echo Impressions Echocardiogram Report Interpretation Summary The left ventricle is normal in size. The ejection fraction is estimated to be 60-65%. The right ventricle is normal in size and function. The aortic valve is not well visualized. Leaflet mobility is moderately reduced. The peak aortic velocity is 2.4 m/sec. The aortic valve mean gradient is 13 mmHg. There is no hemodynamically significant valvular aortic stenosis. There is mild to moderate aortic regurgitation. There is a moderate left-sided pleural effusion. Assessment & Plan Mr. Roldan is a 75-year-old male with past medical history of lung cancer treated with radiation and chemotherapy per family, diabetes mellitus type II, MAHNAZ on CPAP, dyslipidemia, admitted for sepsis with the underlying cause is likely hydronephrosis secondary to obstructing ureteral stone. Patient may also have a concomitant pneumonia. Hospital day 6. 1. Severe Sepsis. Present on admission. Improving - Sepsis criteria met leukocytosis, tachypnea, tachycardia and lactic acidosis - Probable source hydronephrosis secondary to obstructing ureteral stone - CXR continues to show probable pneumonia, confirmed with CT imaging - Hold IV fluid replacement - Azithromycin and ceftriaxone given in the ED - Infectious disease following, we appreciate the recommendations - Continue Zosyn - Lactic acid normalized - Urology signed off - Repeat urine culture pending - Blood culture positive for gram-negative rods 1 of 2 - Discontinued levofloxacin secondary to increasing encephalopathy 2. Hydronephrosis. Present on admission. Resolved - CT KUB showed a 14 x 8 mm obstructive stone in the proximal left ureter - Repeat CT post surgery shows the calcification which was previously obstructing left kidney at the UPJ is now within a posterior infundibulum- with resolution of the hydronephrosis - Dr. Guevara urology consultation as in #1 - Continue antibiotics as in #1 3. Concern for pneumonia. Present on admission. Ongoing - Imaging continues to show continuation and now worsening of right upper middle lobe infiltrates and consolidation in the left lower lobe - White count has normalized - Pro calcitonin continues to trend down 0.6 - Antibiotics as in #1 - Will Consider adding a meropenem and caspofungin for more atypical coverage 4. Acute kidney injury. Present on admission. Resolved - Elevated creatinine on admission, now normal - Most likely secondary to #2 - Lasix 40 mg daily - Monitor ins and outs 5. Tachybradycardia syndrome. Not present on admission. Resolved - Patient began admission tachycardic most likely secondary to infectious state - Patient had episode of asymptomatic bradycardia sustained - ECG shows sinus rhythm first degree block AK interval 0.21. Possible old anterior ME - ECHO showed EF 60-65, mild to moderate aortic regurg - Continue to monitor, currently hemodynamically stable 6. Hyponatremia. Present on admission. Resolved - Sodium normalized - Most likely secondary to #2 - Lasix as above - Continue to closely monitor ins and outs 7. Encephalopathy. Present on admission. Ongoing - Most likely secondary to infectious state, possible medication reaction, delirium - Antibiotics as in #1 - discontinued levofloxacin - No neurological deficits, hemiparesis or obvious signs of increased intracranial pressure - Continue to monitor clinically 8. Diabetes mellitus type II. Present on admission. Ongoing - No diabetes medication mentioned in med rec - Patient has been hypoglycemic requiring administration of D5/D10 - A1c 5.1 - Speech therapy eval - patient on soft pured diet - Low dose correctional scale insulin - Continue to monitor 9. Lung cancer. Present on admission. Ongoing - CT showed cavitary lesion, decreased in size from previous study and right upper lobe pulmonary nodule, stable when compared to previous study - Reportedly finished chemotherapy and/or radiation treatment 30 days prior 10. Abdominal aortic aneurysm. Present on admission. Ongoing - Incidental CT finding showed a 3 cm in diameter aneurysm of distal abdominal aorta. As well as moderate severe atherosclerosis. - Recommend follow-up and monitoring as outpatient DVT prophylaxis: Heparin GI prophylaxis. Famotidine twice a day Disposition: Patient remains encephalopathic, unknown etiology. Most likely remain inpatient for another 1 to 2 days, pending hospital course Pain Evaluation: Adequate Pain Control VTE Prophylaxis: SCDs VTE Mechanical Devices: Intermittant Pneumatic CD Resuscitation Status: CPR: Attempt Resuscitation Attending Statement The patient was seen and examined together with Dr. Roque on 05/24/2016 and I agree with the history, exam and plan as outlined in the note above. . Huang Roque DO May 24, 2016 20:24 Luiz Dutton MD May 25, 2016 10:49
[2016-05-25] VITALS (8 sets, daily range): BP systolic 107–177; BP diastolic 68–87; PULSE 82–96; RESP 16–18; O2SAT 92–96
[2016-05-25] MEDS: Heparin 5,000 Unit/mL Inj SUBQ SCH ×3 (01:16→16:30)
[2016-05-25] MEDS: Piper-Tazo 3.375 Gm/50 mL D5W Minibag Plus - Q8H over 4 hrs IV SCH ×4 (01:17→09:03)
--- NOTE | 2016-05-25 02:17 | NUR ---
Mentation/Activity Patient up out of bed at start of shift. Upset with sitter for "looking over my shoulder all the time." Ambulating around the room with FWW and standby assist; attempted to leave the room because "I gotta get out of here." Spoke with patient in a calm manner; patient able to identify nurse as the same nurse he had the previous night, able to identify place as "[facility]." Redirected patient back into room without difficulty. Ambulated around the room with patient and then offered patient option of sitting up in chair or laying down in bed. Patient admitted feeling tired and got back in bed with minimal assist and requested to be tucked in with blankets. Patient subsequently noted to be sleeping; rouses and is cooperative with care. Continue to monitor.
[2016-05-25 04:44] LABS: BASOPHILS % (AUTO) 0.2 % (0-3); EOSINOPHILS % (AUTO) 6.9 % (0-5); MONOCYTES % (AUTO) 14.2 % (4-12); Mean Corpuscular Hemoglobin 28.3 pg (27.0-35.0); Mean Corpuscular Volume 86.9 fL (81-100); NEUTROPHILS % (AUTO) 68.7 % (40-74); Platelet Count 227 bil/L (150-400)
[2016-05-25] MEDS: Insulin LISPRO 300 Unit/3 mL Inj SUBQ SCH (08:00)
[2016-05-25] MEDS: Furosemide 10 mg/mL 4 mL Inj IVPUSH SCH (09:02)
[2016-05-25] MEDS: Nystatin 100,000 Unit/Gm 15 Gm Powder TOPICAL SCH ×2 (09:03→21:04)
[2016-05-25] MEDS ORDERED: Potassium Chloride 20 mEq SR Tablet PO ONE (09:20)
[2016-05-25] MEDS: KCl 40 mEq/100 mL IV Premix (K < 3 & Creat <2) IV SCH ×2 (09:38→14:22)
--- NOTE | 2016-05-25 11:23 | PROG NOTE ---
[address] [address] PROGRESS NOTE PATIENT: DAVION DAVIDSON : 1940 MR#: [id number] ADMIT: 05/20/2016 JOB ID: [id number] DATE: 05/25/2016 REASON FOR FOLLOWUP: Complicated urinary tract infection secondary to Proteus in a patient with underlying pulmonary malignancy and presumably pulmonary MAC. INTERVAL HISTORY: Over the last three days since I have last seen the patient, he has improved dramatically. Today, he is completely awake, alert, making jokes, and kept saying he wants to go home. He has very minimal sputum production. His shortness of breath is back to baseline, and he has no nausea vomiting, diarrhea, problems with his medications or skin rash. Recall that the patient did have ureteral stent placed, and purulent urine was found and cultured earlier. The stent remains in place, and his Mason catheter is now out. PHYSICAL EXAMINATION: Reveals an afebrile gentleman. Temp 37.1, he has been afebrile since the first day really of his hospital stay. Pulse 92, respiratory rate 15, blood pressure 145/78, saturating well on 2 L. As noted, he is awake, alert and joking. Oral cavity negative. Lungs quite clear posteriorly. Cardiac tones regular rate and rhythm. Abdomen is soft, nontender. No skin rash noted. LABORATORIES: Include white count normal at 5800. He does have mild eosinophilia at 7%, which is new since admission, and is likely secondary to his antibiotics. Creatinine is 1.06. His LFTs are normal. Procalcitonin 0.4, down from a peak of 1, which is probably not terribly significant. His initial urinalysis was packed with white blood cells, and his urine culture was mixed, but his blood culture grew Proteus mirabilis. This Proteus was highly susceptible to all tested antibiotics including Cipro, Zosyn and even amoxicillin. Chest radiograph done yesterday showed right perihilar infiltrate. 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 Also recall that a single sputum done here during his admission last fall grew MAC and a culture done from a bronchoscopy done at [facility] also grew MAC. IMPRESSION: This is a complicated case. 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 Recall that at least two positive specimens are needed to prove the diagnosis and, in this case, it seems likely that his MAC is not colonization but rather is causing some degree of infection. On top of all this, the patient now has a complicated bacteremic Proteus urinary tract infection. At this point, he has dramatically improved after five days or so of broad-spectrum antibiotics. Now that we have an organism, we can start to narrow our focus. RECOMMENDATIONS: 1. This would be an appropriate case to use a fluoroquinolone agent. We try and limit the fluoroquinolones in the hospital because of the risk of C. diff and other issues, but the patient is bacteremic with a gram-negative fariba which is extremely susceptible to this agent. Amoxicillin might also be used, but it is easier to achieve bacteriocidal blood levels with Cipro, and I think it would be appropriate to start in this case. Given the patient's age, will start with 500 mg p.o. b.i.d., with a plan to continue to complete a 10 day course which would take us through June 03. 2. Urology will be re-evaluating the patient and making plans as to what to do with his stent. 3. With respect to the patient's MAC, I have discussed this case extensively with Dr. Romano of Pulmonary. The patient, at this point, has relatively little in the way of cough and sputum production, and his family and the patient state he has improved considerably with respect to his respiratory status since radiation of his lung tumor. How much contribution his heavy colonization and/or infection with MAC is making to his current symptomatology is unclear, but it would seem to be minimal. At this point, I think the toxicity of multi-drug long-term MAC therapy likely outweighs any potential benefit, and would hold off on MAC therapy while keeping in mind that he is almost certainly infected with this organism. 4. We had hoped to get three sputums for AFB culture here to further nail down the diagnosis of MAC, but this point the patient is not really producing sputum and, in view of the fact we have two positives already, I am not certain that we actually need to collect more sputum. 5. Will continue to follow this patient with you.
--- NOTE | 2016-05-25 14:02 | NUR ---
NUTRITION FOLLOW-UP: ASSESS: 75 YO male admitted with sepsis and hydronephrosis secondary to ureteral stone. Pt underwent surgery and currently has L. ureteral stent. Pt successfully extubated (05/22). Diet advanced to dysphagia mechanical with fair PO intake. Pt remains confused, requiring sitter. PMHX: T2DM, MAHNAZ, dyslipidemia, lung ca, dementia LABS: K+ 3.4, Glu 107, (05/24): Alb 2.3, PAB 5 MEDS: Reviewed. Lasix. GI: 3 BM 05/24 SKIN: There are no pressure related injuries at this time, per Heating Unit Mechanic. WT: 111.4 kg, BMI 35.2 kg/m2, IBW 75.4 kg. Admit weight: 117.0 kg. DIET: Dysphagia mechanical, nectar thick liquids. PO intake 25-50%. ESTIMATED NEEDS: BMI Calories: 5278-5011 kcal/day (20-22 kcal/kg BW) Protein: 110-135 g/day (1.5-1.8 g/kg IBW) Fluids:~2925-3510ml/day (25-30 ml/kg) NUTRITION DIAGNOSIS: 1) Inadequate oral intake related to decreased ability to consume sufficient energy as evidenced by current NPO status - IMPROVED WITH DIET ADVANCE. NUTRITION INTERVENTION: 1) Continue current diet as ordered. Diet advance per speech therapy. MONITOR/EVALUATE: Diet advance/tolerance, PO intake, wt, labs, GI, POC, nutrition status. Follow per moderate nutrition risk guidelines.
--- NOTE | 2016-05-25 15:02 | NUR ---
Scheduled hospital follow up with 05/27/16 @ 2PM. Let them know patient will need Home Health at discharge and this appointment should include that. Updated NETWORK STRATEGIST
--- NOTE | 2016-05-25 17:11 | PCM.PNMED ---
Subjective Date of Service May 25, 2016 Subjective Patient is a 75-year-old male with history of lung cancer treated with radiation and chemotherapy, diabetes mellitus type II, MAHNAZ on CPAP, dyslipidemia , admitted for sepsis with the underlying cause likely hydronephrosis secondary to obstructing ureteral stone. Overnight: Patient reported to be up and out of bed at start of shift trying to leave the room was able to be redirected. No other events reported. Today: Patient is awake and alert and oriented. Far better than previous. Family at bedside states that he is back at his baseline regarding his mental status. Overall he has no specific complaints denies chest pain shortness of breath nausea vomiting or GI or symptoms. Exam Vital Signs Vital Sign - Last Date Time Temp Pulse Resp B/P Pulse Ox O2 Delivery O2 Flow Rate FiO2 05/25/16 16:36 Supplement Oxygen 05/25/16 13:16 37.1 92 18 177/79 93 2.00 05/22/16 12:00 30 Intake and Output 05/24/16 05/24/16 05/25/16 Cumulative From/Thru 15:00 23:00 07:00 05/20/16 14:10 - 05/25/16 05:32 Intake Total 1272 ml 327 ml 79554 ml Output Total 1800 ml 1600 ml 60980 ml Balance -528 ml -1273 ml 2203 ml Intake Oral 1000 ml 120 ml 1470 ml IV Total 272 ml 207 ml 75489 ml Output Urine Total 1800 ml 1600 ml 06100 ml Gastric Drainage Total 280 ml # Bowel Movements 2 5 Exam General: Patient awake and alert laying in bed no restraints in place. No acute distress. Well nourished. Appropriately interactive. HEENT: Normocephalic, atraumatic. External ears without defect. Anicteric sclerae, moist conjunctivae, and no lid lag. PE RR L Neck: No jugular venous distension. IJ in place with bandage intact Cardiovascular: Regular rate, regular rhythm, no murmurs appreciated Pulmonary: Clear to auscultation bilaterally with no crackles. Normal respiratory effort with no use of accessory muscles. Abdomen: Bowel tones present. Soft, obese. Nontender. Extremities: No clubbing, cyanosis, edema appreciated Skin: Normal temperature, turgor, and texture Neurological: Cranial nerves grossly intact. Psychiatric: Awake; Alert to person place though thought the year was 2006. Mentating at baseline per family IVs and Medications Medications Reviewed: Medications were reviewed in detail Lab and Diagnostics Result Diagram: 05/25/16 0425 05/25/16 1300 Microbiology Sputum negative, MRSA negative, strep pneumo urine antigen negative, blood negative to date, influenza screen negative, respiratory viral PCR negative. Urine showed mixed urogenital cristy. X-Rays, CTs and MRIs . X-RAY CHEST ONE VIEW, PORTABLE IMPRESSION: A cavitary mass in the right mid lung medially. No acute cardiopulmonary disease. Dictated by: Rick Salcedo M.D. on 05/20/2016 at 15:45 CT CHEST WITHOUT CONTRAST IMPRESSION: 1. 3 mm right upper lobe pulmonary nodule which is demonstrated stability when compared to study dated 01/03/16. Which has demonstrated 5 months of stability. Please see followup guidelines below. 2. Decreased size of the right lower lobe superior segment gas-filled cavitary lesion when compared with the study dated 01/03/16. This finding suggests persistent communication with a subsegmental bronchus. 3. Trace air space opacities within the right middle lobe suggestive of aspiration or infection. 4. Findings suspicious for left hydronephrosis which is new when compared with the prior study. Renal ultrasound or CT KUB would be helpful to further characterize this finding if clinically indicated. Fleischner Society criteria for SOLID lung nodule followup. Nodule size (mm)Low-risk patientHigh-risk [id number] follow-up neededFollow-up at 12 mo; if no change, no further follow-up>[id number] CT at 12 mo; if no change, no further follow-up needed.Initial follow-up CT at 6-12 mo, then 18-24 mo if no change. >6-8Initial follow-up CT at 6-12 mo, then 18-24 mo if no change. Initial follow-up CT at 3-6 mo, then 9-12 mo and 24 mo if no change. > 8Follow-up CT at 3, 9, 24 mo. Or PET and/or biopsy.Same as for low-risk pts. Fleischner Society criteria for SUB-SOLID lung nodule followup. Solitary pure ground-glass nodules5 mm or lessNo followup needed. >5 mm3 mo follow-up CT to confirm persistence. Then annual CT for 3 years. Part-solid nodules3 mo follow-up CT to confirm persistence. If persistent with solid component <5 mm, annual CT for at least 3 years. If solid component is 5 mm or more, biopsy or surgical resection. Consider PET-CT for lesions > 10 mm. Multiple sub-solid nodulesPure ground glass nodules [address] at 2 and 4 years. Pure ground glass nodules >5 mm without dominant lesion. [address] to confirm persistence, then annual followup CT for at least 3 years. Dominant nodule(s) with part-solid or solid component. [address] to confirm persistence. If persistent, consider biopsy or surgical resection, rambo if lesions have >5 mm solid component. Dictated by: Alma Burroughs M.D. on 05/20/2016 at 16:06 CT KUB IMPRESSION: 1. A 14 x 8 mm obstructive stone is present in the proximal left ureter causing moderate hydronephrosis. 2. Bilateral renal cysts. 3. Mild concentric thickening of urinary bladder. This finding may be secondary to cystitis or chronic bladder outlet obstruction. Recommend clinical correlation. 4. Subpleural infiltrates and right basilar consolidation suspicious for pneumonia. 5. 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 Dictated by: Rick Salcedo M.D. on 05/20/2016 at 17:08 X-RAY CHEST ONE VIEW, PORTABLE IMPRESSION: 1. Increased left basilar pneumonia. 2. No change in right greater than left bilateral midlung pneumonia. Dictated by: Tania Murphy M.D. on 05/21/2016 at 9:00 X-RAY RETROGRADE UROGRAPHY IMPRESSION: Catheterization of left collecting system. Dictated by: Tania Murphy M.D. on 05/21/2016 at 8:53 X-RAY CHEST ONE VIEW, PORTABLE IMPRESSION: Lines and tubes in normal position, stable bilateral pneumonia greater on the right than the left. No pleural effusion associated. Dictated by: Lorenzo Manrique M.D. on 05/22/2016 at 11:02 CT CHEST, ABDOMEN AND PELVIS WITHOUT CONTRAST IMPRESSION: 1. Interval worsening of pulmonary disease since prior CT chest, now with patchy areas of right upper and middle lobe infiltrates, consolidation in the left lower lobe compatible with pneumonia, persistence of the cavitated lesion in the right lower lobe associated with an enlarging somewhat spiculated soft tissue component at the superior margin and development of small bilateral pleural effusions. 2. Interval resolution of left hydronephrosis secondary to stent placement, large calcification now in the left kidney causing no obstruction. 3. Diffuse bladder wall thickening which is nonspecific but could represent chronic outlet obstruction or cystitis. Mason catheter in place. Dictated by: Epifanio Lovell M.D. on 05/22/2016 at 14:09 X-RAY CHEST ONE VIEW, PORTABLE IMPRESSION: 1. Persistent patchy areas of density at the lung bases thought to represent some pneumonia. 2. Question of tracheomalacia because of narrowing of the trachea at the level of the aortic arch. Dictated by: Sung Womack M.D. on 05/23/2016 at 7:51 X-RAY CHEST ONE VIEW, PORTABLE IMPRESSION: Right perihilar pneumonia and/or aspiration. Dictated by: Paulie Cohen M.D. on 05/24/2016 at 9:57 12-lead ECG Sinus bradycardia with MT interval showing first-degree heart block. 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 Read by Dr. Saxena for 05/22/2016 Cardiac Echo Impressions Echocardiogram Report Interpretation Summary The left ventricle is normal in size. The ejection fraction is estimated to be 60-65%. The right ventricle is normal in size and function. The aortic valve is not well visualized. Leaflet mobility is moderately reduced. The peak aortic velocity is 2.4 m/sec. The aortic valve mean gradient is 13 mmHg. There is no hemodynamically significant valvular aortic stenosis. There is mild to moderate aortic regurgitation. There is a moderate left-sided pleural effusion. Assessment & Plan Mr. Roldan is a 75-year-old male with past medical history of lung cancer treated with radiation and chemotherapy per family, diabetes mellitus type II, MAHNAZ on CPAP, dyslipidemia, admitted for sepsis with the underlying cause is likely hydronephrosis secondary to obstructing ureteral stone. Patient may also have a concomitant pneumonia. Hospital day 7. 1. Severe Sepsis. Present on admission. Improving - Sepsis criteria met on admission leukocytosis, tachypnea, tachycardia and lactic acidosis - source hydronephrosis secondary to obstructing ureteral stone,purulent urine seen on cystoscopy - CXR continues to show probable pneumonia, confirmed with CT imaging - Infectious disease following, we appreciate the recommendations - Lactic acid normalized - Urology signed off - Repeat urine culture pending - Blood culture positive Proteus Mirabella's - Per ID recommendation antibiotic course now ciprofloxacin 500 mg twice a day 2. Hydronephrosis. Present on admission. Resolved - CT KUB showed a 14 x 8 mm obstructive stone in the proximal left ureter - Repeat CT post surgery shows the calcification which was previously obstructing left kidney at the UPJ is now within a posterior infundibulum- with resolution of the hydronephrosis - Dr. Guevara urology consultation as in #1 - Continue antibiotics as in #1 3. Concern for pneumonia. Present on admission. Ongoing - Imaging continues to show continuation and now worsening of right upper middle lobe infiltrates and consolidation in the left lower lobe - White count has normalized - Pro calcitonin continues to trend down 0.4 - Antibiotics as in #1 4. Bacteremia. Present on admission. Ongoing - Blood cultures positive for Proteus Mirabilis, pansensitive - ID following - Antibiotics currently ciprofloxacin 500 mg twice a day 5. Acute kidney injury. Present on admission. Resolved - Elevated creatinine on admission, now normal - Most likely secondary to #2 - Lasix 40 mg daily - Monitor ins and outs 6. Tachybradycardia syndrome. Not present on admission. Resolved - Patient began admission tachycardic most likely secondary to infectious state - Patient had episode of asymptomatic bradycardia sustained - ECG shows sinus rhythm first degree block MT interval 0.21. Possible old anterior TX - ECHO showed EF 60-65, mild to moderate aortic regurg - Continue to monitor, currently hemodynamically stable 7. Hyponatremia. Present on admission. Resolved -Sodium normalized - Most likely secondary to #2 - Lasix as above - Continue to closely monitor ins and outs 8. Encephalopathy. Present on admission. Ongoing - Most likely secondary to infectious state, possible medication reaction, delirium - Antibiotics as in #1 - discontinued levofloxacin - No neurological deficits, hemiparesis or obvious signs of increased intracranial pressure - Continue to monitor clinically 9. Diabetes mellitus type II. Present on admission. Ongoing - No diabetes medication mentioned in med rec - Patient has been hypoglycemic requiring administration of D5/D10 - A1c 5.1 - Speech therapy eval - patient on soft pured diet - Low dose correctional scale insulin - Continue to monitor 10. Lung cancer. Present on admission. Ongoing - CT showed cavitary lesion, decreased in size from previous study and right upper lobe pulmonary nodule, stable when compared to previous study - Reportedly finished chemotherapy and/or radiation treatment 30 days prior 11. Abdominal aortic aneurysm. Present on admission. Ongoing - Incidental CT finding showed a 3 cm in diameter aneurysm of distal abdominal aorta. As well as moderate severe atherosclerosis. - Recommend follow-up and monitoring as outpatient DVT prophylaxis: Heparin GI prophylaxis. Famotidine twice a day Disposition: Patient remains encephalopathic, unknown etiology. Most likely remain inpatient for another 1 to 2 days, pending hospital course VTE Prophylaxis: SCDs VTE Mechanical Devices: Intermittant Pneumatic CD Resuscitation Status: CPR: Attempt Resuscitation Attending Statement The patient was seen and examined together with Dr. Saxena on 05/25/2016 and I agree with the history, exam and plan as outlined in the note above. ALEK SAXENA DO May 25, 2016 17:11 Michael Torrez MD May 25, 2016 20:57
--- NOTE | 2016-05-25 18:08 | DRSVH ---
PROCEDURE: X-RAY CHEST ONE VIEW, PORTABLE ([id number]) INDICATIONS: Possible pneumonia TECHNIQUE: One view of the chest was acquired. COMPARISON: [facility], CR, XR CHEST 1VW (PORTABLE), 05/21/2016, 5:38. [facility], CR, XR CHEST 1VW (PORTABLE), 05/23/2016, 4:44. [facility], CR, XR CHEST 2VW, 01/02, 11:53. [facility], CR, XR CHEST 1VW (PORTABLE), 05/22/2016, 4:43. [facility], CR, XR CHEST 1VW (PORTABLE), 05/24/2016, 9:18. FINDINGS: Surgical changes and devices: Right internal jugular catheter extends into the superior vena cava. Lungs and pleura: Right perihilar cavitary collection appears similar to the prior study. There are persistent patchy opacities in the right lung base. No pleural effusions or pneumothorax. Mediastinum: Mediastinal contours appear normal. Heart size is normal. Bones and chest wall: No suspicious bony lesions. Overlying soft tissues appear unremarkable. IMPRESSION: 1. Right perihilar cavitary appears similar to the prior study. 2. Persistent patchy right basilar opacities which may represent pneumonia. Dictated by: Angelo Fang M.D. on 05/25/2016 at 17:54 Approved by: Angelo Fang M.D. on 05/25/2016 at 18:06
--- NOTE | 2016-05-25 19:28 | NUR ---
Mentation/O2 No reports of chest pain/pressure/discomfort. Tele SR 80s with occasional PAC/PVC. BP 145 systolic this AM. No reports of SOB/dizziness. SPO2 91% on 2LNC. No reports of n/v/d/c or abdominal pain. Mason patent draining yellow urine to gravity. Patient alert and oriented x2, did not know year this AM. As shift progressed, patient had a few different episodes of increased confusion, stating "I don't know where I am". Cooperative with care, FLORENCE, reports full sensation.
[2016-05-26] MEDS: Heparin 5,000 Unit/mL Inj SUBQ SCH ×2 (01:07→07:57)
[2016-05-26 03:19] VITALS: PULSE 77; RESP 16; O2SAT 97
[2016-05-26 04:20] VITALS: BP 130/72; PULSE 84; RESP 17; O2SAT 94
[2016-05-26 04:32] VITALS: PULSE 86
--- NOTE | 2016-05-26 05:17 | NUR ---
neuro/behavior: pt. disoriented/confused but pleasant. Pt. gets up very impulsively, caught pt. almost pulling out jugular catheter last alexander. pt. had a sitter for safety and to protect lines and keep pt. from falling.
--- NOTE | 2016-05-26 05:27 | NUR ---
neuro/mobility: pt. ambulated about 20 feet down the hallway. Addendum: 05/26/16 at 0531 by SUSAN LANDIN RN at which point he had to sit down and hold his breath, pt. pushed back to the room in a wheelchair.
[2016-05-26 06:34] LABS: BASOPHILS % (AUTO) 0.2 % (0-3); EOSINOPHILS % (AUTO) 6.9 % (0-5); MONOCYTES % (AUTO) 15.2 % (4-12); Mean Corpuscular Hemoglobin 27.5 pg (27.0-35.0); Mean Corpuscular Volume 86.8 fL (81-100); NEUTROPHILS % (AUTO) 68.3 % (40-74); Platelet Count 245 bil/L (150-400)
[2016-05-26 07:12] LABS: Magnesium 1.4 mg/dL (1.6-2.6)
[2016-05-26 07:41] VITALS: BP 122/72; PULSE 86; RESP 22; O2SAT 94
[2016-05-26] MEDS: Furosemide 10 mg/mL 4 mL Inj IVPUSH SCH (07:56)
[2016-05-26] MEDS: KCl 40 mEq/100 mL (CENTRAL) 40 MEQ in IV Premix 1 EACH IV SCH ×2 (07:56→11:45)
[2016-05-26] MEDS: Nystatin 100,000 Unit/Gm 15 Gm Powder TOPICAL SCH (07:57)
[2016-05-26] MEDS ORDERED: Potassium Chloride 20 mEq SR Tablet PO ONE ×2 (10:20→12:00)
[2016-05-26] MEDS ORDERED: Magnesium Sulf 4 Gm/100 mL H2O 4 GM in IV Premix 1 EACH IV ONE (10:25)
--- NOTE | 2016-05-26 11:20 | NUR ---
Discharge from PT; ambulate w/nsg Pt has met all PT goals and is discharged from further PT services at this time; released to ambulate w/nsg w/FWW 2-3x/day as pt tolerates.
[2016-05-26] MEDS ORDERED: CIPR-231 PO (11:54)
--- NOTE | 2016-05-26 12:11 | PROG NOTE ---
[address] [address] PROGRESS NOTE PATIENT: DAVION DAVIDSON : 1940 MR#: [id number] ADMIT: 05/20/2016 JOB ID: [id number] DATE: 05/26/2016 REASON FOR FOLLOWUP: Complicated urinary tract infection due to Proteus. INTERVAL HISTORY: Overnight, the patient reports he feels quite well. He has no fevers, chills, or sweats. No sore throat or cough. No abdominal pain. No flank pain. He has no dysuria, of course, in part because he still has a Mason catheter in place. PHYSICAL EXAMINATION: Reveals a very comfortable elderly gentleman. Temperature 36.9, pulse 86, respiratory rate 22, blood pressure 122/72. He is saturating well on room air. Oral cavity is unremarkable. Lungs quite clear. Cardiac tones without new murmur. Regular rate and rhythm noted. Abdomen is soft, nontender. No flank pain. Mason catheter draining large amounts of clear yellow urine. LABORATORIES: Include a white count of 6100. He has 7% eos, otherwise basically normal diff. Creatinine 0.93. Potassium a bit low at 2.9. Liver function tests normal. Procalcitonin is down to 0.2 from a peak of 1, so it is showing an 80% decline which is what we are looking for. Urinalysis initially, of course, was packed with white cells and grew Proteus which was exquisitely sensitive to Cipro. Blood cultures have been negative. IMPRESSION: This is a gentleman with underlying lung malignancy which has undergone what appears to be a definitive therapy in this case with radiation with appropriate decrease in size of the thick-walled malignant cavity. 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 With respect to his urinary tract infection, he is now on Cipro, and we intend to continue through June 03. The only outstanding issue I can see with respect to his upcoming discharge would be ranging for the appropriate urologic followup, as there is still a stone present, and the patient still has a Mason. RECOMMENDATIONS: 1. Will continue with Cipro 500 b.i.d. through June 03. 2. Urologic followup will need to be in place before he is discharged. 3. There is no current indication to treat his pulmonary MAC, but obviously if it became more symptomatic, we would do it for symptom relief, as we know this is a macrolide susceptible strain and will be likely to respond therapy if we needed to do that. 4. ID will go ahead and sign off, but please do not hesitate to re-involve me in this patient's care, either as an inpatient or outpatient as needed.
[2016-05-26 12:56] VITALS: PULSE 98
[2016-05-26 12:59] VITALS: BP 128/84; PULSE 98; RESP 20; O2SAT 95
[2016-05-26 13:16] LABS: Magnesium 2.4 mg/dL (1.6-2.6)
--- NOTE | 2016-05-26 13:30 | PCM.DIMED ---
Huang Roque DO 05/26/16 1152: Discharge Instructions Date of Service May 26, 2016 Dates of Hospitalization May 20, 2016 at 17:04 Discharge Diagnosis Discharge Diagnosis 1. Severe Sepsis 2. Hydronephrosis 3. Concern for pneumonia 4. Bacteremia 5. Acute kidney injury 6. Tachybradycardia syndrome 7. Hyponatremia 8. Encephalopathy 9. Diabetes mellitus type II 10. Lung cancer 11. Abdominal aortic aneurysm Medication Instructions During this hospitalization you were started on new medication. Please follow these medication instructions unless otherwise directed by your physician. Note that your medication regimen may continue to be changed by your physician. New medication: -Ciprofloxacin 500mg. Take one tablet by mouth twice daily until June 03, 2016. Continue your other home medications. Take the medications as directed. -Potassium chloride 20mEq daily -Citalopram 40mg daily Diet Heart Healthy, Diabetic Activity Home Health Phyical Therapy Call your provider Fever or Chills, Shortness of breath, Excessive diarrhea Patient Instructions During this hospitalization you were treated with antibiotics and a stent for an obstructing ureteral stone and complicated urinary tract infection. You should continue to take the prescribed antibiotic, ciprofloxacin, as instructed above. You will need to follow up with Urology to have the stone addressed. Follow-up plan You should follow up with Urology in about 2 weeks. Go to your scheduled appointment with your oncologist on 06/04/2016. You should follow up with your primary care physician in about one week to discuss this hospitalization and to review your electrolytes. Follow-up Provider: Shalom Noel MD Follow-up with PCP in: 1 week Provider: Suzette Guevara MD Follow-up in: 2 weeks Michael Torrez MD 05/26/16 2048: Discharge Instructions Attending's Statement The patient was seen and examined together with Dr. Roque on 05/26/2016 and I agree with the discharge summary as outlined in the note above. Huang Roque DO May 26, 2016 11:52 Michael Torrez MD May 26, 2016 20:48
--- NOTE | 2016-05-26 14:19 | NUR ---
Social Work Note: Discharge Data& Assessment: EMR reviewed. Per pt is medically improved and ready for discharge. ABHINAV met with pt, pt , and pt daughter Tisha ([phone]) at bedside to confirm discharge plan and assess for any unmet needs. Greyson Roldan is a 75 year old male admitted on 05/20/2016 for sepsis, URI and RODGER. Per pt is medically improved and ready for discharge. Pt will be discharging to pt daughter Tisha's home in [place] ( [address] [place] [address]) via POV with [facility]OM[facility] PT, RN and MAIL DELIVERY SUPERVISOR to follow. ABHINAV notified Ronaldo from [facility] that pt is discharging, F2F completed and picked up by Ronaldo in person. Pt daughter transporting pt to her home. Pt daughter provided with DME list and obtaining a walker was discussed. Pt daughter states she will rent a walker from [facility] prior to returning home to [place] today and declined a prescription for the walker from .Pt has follow up apt. with Dr. Noel tomorrow at 2p.m. Pt daughter also provided a copy of DPOA paperwork, copy made and placed on pt chart. Pt and pt family deny any other needs. No other discharge needs identified. All updated and agreeable to plan. Plan: Per pt is medically improved and ready to discharge to his daughters home with [facility]OM[facility] PT, RN, and MAIL DELIVERY SUPERVISOR to follow. Pt has follow up apt with PCP tomorrow at 2p.m. Pt daughter renting walker at DME supplier (list provided). Pt and pt family deny any other needs. No other discharge needs identified. All updated and agreeable to plan. FABIENNE Estrada
[2016-05-26] MEDS ORDERED: POTA20TA16 PO (14:20)
--- NOTE | 2016-05-26 14:56 | NUR ---
Discharge Patient alert and oriented to self and place. Pleasantly confused and easily reoriented. VSS, no c/o pain/discomfort. K+ 2.9 this AM replacement given and came up to 3.7 this afternoon. Mason catheter removed and patient urinating without issue. Appointment made with urology to follow up outpatient for kidney stone. IJ removed by IV therapy RN. No signs of bleeding at site. Patient left unit via wc accompanied by his and daughter and discharged home via personal vehicle.
--- NOTE | 2016-05-26 17:34 | PCM.DC.MED ---
Discharge Summary Date of Service May 26, 2016 Dates of Hospitalization Date of Hospital Admission May 20, 2016 at 17:04 Date of Discharge: May 26, 2016 Providers: Admitting Physician: Luiz Dutton MD Primary Care Physician: Shalom Noel MD Attending Physician: Luiz Dutton MD Diagnosis at Time of Discharge Diagnosis at Time of Discharge 1. Severe Sepsis 2. Hydronephrosis 3. Concern for pneumonia 4. Bacteremia 5. Acute kidney injury 6. Tachybradycardia syndrome 7. Hyponatremia 8. Encephalopathy 9. Diabetes mellitus type II 10. Lung cancer 11. Abdominal aortic aneurysm Consultations Edgar Chau M.D. Infectious disease Claude Melo M.D. pulmonology/ICU Suzette Guevara M.D. urology Procedures XRay, CTs & MRIs . X-RAY CHEST ONE VIEW, PORTABLE IMPRESSION: A cavitary mass in the right mid lung medially. No acute cardiopulmonary disease. Dictated by: Rick Salcedo M.D. on 05/20/2016 at 15:45 CT CHEST WITHOUT CONTRAST IMPRESSION: 1. 3 mm right upper lobe pulmonary nodule which is demonstrated stability when compared to study dated 01/03/16. Which has demonstrated 5 months of stability. Please see followup guidelines below. 2. Decreased size of the right lower lobe superior segment gas-filled cavitary lesion when compared with the study dated 01/03/16. This finding suggests persistent communication with a subsegmental bronchus. 3. Trace air space opacities within the right middle lobe suggestive of aspiration or infection. 4. Findings suspicious for left hydronephrosis which is new when compared with the prior study. Renal ultrasound or CT KUB would be helpful to further characterize this finding if clinically indicated. Fleischner Society criteria for SOLID lung nodule followup. Nodule size (mm)Low-risk patientHigh-risk [id number] follow-up neededFollow-up at 12 mo; if no change, no further follow-up>[id number] CT at 12 mo; if no change, no further follow-up needed.Initial follow-up CT at 6-12 mo, then 18-24 mo if no change. >6-8Initial follow-up CT at 6-12 mo, then 18-24 mo if no change. Initial follow-up CT at 3-6 mo, then 9-12 mo and 24 mo if no change. > 8Follow-up CT at 3, 9, 24 mo. Or PET and/or biopsy.Same as for low-risk pts. Fleischner Society criteria for SUB-SOLID lung nodule followup. Solitary pure ground-glass nodules5 mm or lessNo followup needed. >5 mm3 mo follow-up CT to confirm persistence. Then annual CT for 3 years. Part-solid nodules3 mo follow-up CT to confirm persistence. If persistent with solid component <5 mm, annual CT for at least 3 years. If solid component is 5 mm or more, biopsy or surgical resection. Consider PET-CT for lesions > 10 mm. Multiple sub-solid nodulesPure ground glass nodules [address] at 2 and 4 years. Pure ground glass nodules >5 mm without dominant lesion. [address] to confirm persistence, then annual followup CT for at least 3 years. Dominant nodule(s) with part-solid or solid component. [address] to confirm persistence. If persistent, consider biopsy or surgical resection, rambo if lesions have >5 mm solid component. Dictated by: Alma Burroughs M.D. on 05/20/2016 at 16:06 CT KUB IMPRESSION: 1. A 14 x 8 mm obstructive stone is present in the proximal left ureter causing moderate hydronephrosis. 2. Bilateral renal cysts. 3. Mild concentric thickening of urinary bladder. This finding may be secondary to cystitis or chronic bladder outlet obstruction. Recommend clinical correlation. 4. Subpleural infiltrates and right basilar consolidation suspicious for pneumonia. 5. 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 Dictated by: Rick Salcedo M.D. on 05/20/2016 at 17:08 X-RAY CHEST ONE VIEW, PORTABLE IMPRESSION: 1. Increased left basilar pneumonia. 2. No change in right greater than left bilateral midlung pneumonia. Dictated by: Tania Murphy M.D. on 05/21/2016 at 9:00 X-RAY RETROGRADE UROGRAPHY IMPRESSION: Catheterization of left collecting system. Dictated by: Tania Murphy M.D. on 05/21/2016 at 8:53 X-RAY CHEST ONE VIEW, PORTABLE IMPRESSION: Lines and tubes in normal position, stable bilateral pneumonia greater on the right than the left. No pleural effusion associated. Dictated by: Lorenzo Manrique M.D. on 05/22/2016 at 11:02 CT CHEST, ABDOMEN AND PELVIS WITHOUT CONTRAST IMPRESSION: 1. Interval worsening of pulmonary disease since prior CT chest, now with patchy areas of right upper and middle lobe infiltrates, consolidation in the left lower lobe compatible with pneumonia, persistence of the cavitated lesion in the right lower lobe associated with an enlarging somewhat spiculated soft tissue component at the superior margin and development of small bilateral pleural effusions. 2. Interval resolution of left hydronephrosis secondary to stent placement, large calcification now in the left kidney causing no obstruction. 3. Diffuse bladder wall thickening which is nonspecific but could represent chronic outlet obstruction or cystitis. Mason catheter in place. Dictated by: Epifanio Lovell M.D. on 05/22/2016 at 14:09 X-RAY CHEST ONE VIEW, PORTABLE IMPRESSION: 1. Persistent patchy areas of density at the lung bases thought to represent some pneumonia. 2. Question of tracheomalacia because of narrowing of the trachea at the level of the aortic arch. Dictated by: Sung Womack M.D. on 05/23/2016 at 7:51 X-RAY CHEST ONE VIEW, PORTABLE IMPRESSION: Right perihilar pneumonia and/or aspiration. Dictated by: Paulie Cohen M.D. on 05/24/2016 at 9:57 ECG 12 Lead Sinus bradycardia with [place] interval showing first-degree heart block. 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 Read by Dr. Saxena for 05/22/2016 Cardiac Echo Impression Echocardiogram Report Interpretation Summary The left ventricle is normal in size. The ejection fraction is estimated to be 60-65%. The right ventricle is normal in size and function. The aortic valve is not well visualized. Leaflet mobility is moderately reduced. The peak aortic velocity is 2.4 m/sec. The aortic valve mean gradient is 13 mmHg. There is no hemodynamically significant valvular aortic stenosis. There is mild to moderate aortic regurgitation. There is a moderate left-sided pleural effusion. Invasive Procedures 1. Intubation and ventilation 2. Urethral dilation. 3. Cystoscopy and left retrograde pyelogram. 4. Left ureteral stent placement. 5. Mason catheter placement Brief History History and physical per Dr. Donovan Saxena, D.O. 05/20/2016 75-year-old male with past mental history of lung cancer treated with radiation and chemotherapy per family, diabetes mellitus type II, MAHNAZ on CPAP, dyslipidemia, presented to the ED from home with family present secondary to shortness of breath and fever 3 days. Patient is not currently mentating at baseline he is "a little off" per family who is present at the time of exam and interview. Per family since 05/18/2016 patient has had a "chest cold" with a productive cough this is accompanied with a back ache. Overall he stated to his family that he was not feeling good. Patient's reports that she has not noticed any hematuria, though has endorsed fevers at home no temperature was taken. In the emergency department vital signs were found to be 142/72 pulse rate 104, respiratory rate 32, temperature 37.4. Labs white count of 15.9, lactic acid of 3.7. Calcitonin 0.74. Patient was started on azithromycin and ceftriaxone. CT KUB showed 10 x 8 mm obstructing stone in the left ureter causing moderate hydronephrosis. Urology consult, patient scheduled or emergency surgery this evening for removal of obstructing stone. Hospital Course 1. Severe Sepsis. On admission patient met sepsis criteria with leukocytosis, tachypnea, tachycardia and lactic acidosis. His source was most likely secondary to an obstructing ureteral stone causing hydronephrosis. Urology consult from emergency department and he underwent emergent cystoscopy with stent placement to left ureter and drainage of purulent urine. Patient had to be intubated and sedated for this procedure, he remained on the ventilator for an additional day secondary to agitation and increased response to pain post intubation. Infectious disease consulted during the case and manage antibiotic administration. Throughout hospital course his lactic acid normalized, urology signed off with instructions to follow-up, blood cultures grew positive for Proteus Mirabella's. At time of discharge patient's antibiotic course was ciprofloxacin 500 mg twice a day. 2. Hydronephrosis. CT KUB showed a 14 x 8 mm obstructive stone in the proximal left ureter. Hydronephrosis resolved post-ureteral stent placement however a repeat CT post surgery shows the calcification which was previously obstructing left kidney at the UPJ is now within a posterior infundibulum- with resolution of the hydronephrosis. Dr. Guevara of urology requested follow-up as outpatient regarding this. Antibiotics continued as in #1 3. Concern for pneumonia. Throughout stay daily chest x-rays continued to show lung infiltrates and consolidations. Infectious disease followed patient throughout stay and managed antibiotics as in #1. Clinically he improved greatly, his white count normalized with a downward trend of his pro calcitonin. 4. Bacteremia. Blood cultures positive for Proteus Mirabilis, pansensitive. Infectious disease followed managed antibiotics as in #1. Patient improvement documented clinically as well as with positive lab trends to include white count pro calcitonin as well as hemodynamic and febrile state. 5. Acute kidney injury. He had an elevated creatinine on admission which normalized throughout hospital stay. This was most likely secondary to #2. He is given Lasix 40 mg daily with strict monitoring of his ins and outs. Postobstructive diuresis 6. Tachybradycardia syndrome. Patient began admission tachycardic most likely secondary to infectious state. He then became asymptomatically bradycardic which sustained for about a day. ECG showed sinus rhythm and first-degree block with a [place] interval of 0.21. Secondary to possible old anterior MD as seen on ECG. Echocardiogram showed an ejection fraction of 60-65% with mild to moderate aortic regurgitation. His hemodynamic state gradually improved to stability by the time of discharge. 7. Hyponatremia. On admission patient was hyponatremic was most likely secondary to volume overload secondary to #2. Over the course of his stay his sodium levels normalized after the addition of Lasix as well as postobstructive diuresis. Throughout stay he had close monitoring of his daily ins and outs and volume status 8. Hypokalemia Home medications include potassium supplements and patient's potassium and magnesium levels remained labile throughout stay. Patient was on Lasix while in the hospital which may answer for the repeat potassium and administration patient required. Postobstructive diuresis likely also played a significant role in this. 9. Encephalopathy. On admission patient was somewhat confused, patient's family endorse that this was his baseline. Post extubation patient remained encephalopathic secondary to unknown cause. Differential included encephalopathy secondary to infectious state or possibly iatrogenic. At the time he was on levofloxacin which was discontinued as this mental status change may have been an adverse reaction to this antibiotic. However most likely patient's altered mental status secondary to hospital-induced delirium status post intubation with sedation 2 days. In interviewing the family they state that he had a similar mental status change post a prior surgery for lung cancer excision. Gradually over the course of 2 days or so patient's mental status cleared becoming lucid and returning to his baseline per family. 10. Diabetes mellitus type II. Her admission medication record there is no outpatient diabetic medication regimen for patient. His A1c in hospital was 5.1 and he is placed on a low dose correctional scale insulin with control of his blood glucose 11. Lung cancer. Patient carries a diagnosis of lung cancer status post treatment. Prior to admission he was scheduled for a 30 day check with his oncologist to ensure its resolution. CT showed cavitary lesion, decreased in size from previous study and right upper lobe pulmonary nodule, stable when compared to previous study 12. Abdominal aortic aneurysm. Incidental CT scan findings showed a 3 cm diameter aneurysm of the distal abdominal aorta. Also showed moderate severe to severe atherosclerosis. Exam Vital Signs (Last) Date Time Temp Pulse Resp B/P Pulse Ox O2 Delivery O2 Flow Rate FiO2 05/26/16 12:59 36.6 98 20 128/84 95 Room Air 05/26/16 04:20 2.00 05/22/16 12:00 30 Exam General: Patient awake and alert sitting in bedside chair with no restraints in place. Appropriately interactive. HEENT: PERRLA, Normocephalic, atraumatic. External ears without defect. Anicteric sclerae, moist conjunctivae, and no lid lag. Neck: No jugular venous distension. IJ in place with bandage intact Cardiovascular: Regular rate, regular rhythm, no murmurs appreciated Pulmonary: Clear to auscultation bilaterally with no crackles. Normal respiratory effort with no use of accessory muscles. Abdomen: Bowel tones present. Soft, obese. Nontender. : Mason catheter in place draining yellow urine Extremities: No clubbing, cyanosis, edema appreciated Skin: Normal temperature, turgor, and texture Neurological: Cranial nerves grossly intact. Psychiatric: Awake and alert to person place and situation. Test 05/20/16 14:55 05/20/16 16:45 05/20/16 16:52 05/21/16 05:20 Hemoglobin A1c 5.1% (4.8-5.6) Troponin T < 0.010ug/L (0.0-0.011) Pro-B-Type Natriuretic Peptide 947.5pg/mL (0-486) Urine Legionella pneumophilia Ag Negative (Negative) Urine Color Dark yellow (YELLOW) Urine Appearance Slightly cloudy Urine pH 8.0 (5.0-8.0) Urine Specific [place] 1.015 (1.003-1.035) Urine Protein 30mg/dL (NEG,TRACE) Urine Glucose (UA) Negativemg/dL (NEGATIVE) Urine Ketones Negativemg/dL (NEGATIVE) Urine Occult Blood Small (NEGATIVE) Urine Nitrite Negative (NEGATIVE) Urine Bilirubin Negative (NEGATIVE) Urine Urobilinogen Normalmg/dL (NORMAL) Urine Leukocyte Esterase Large (NEGATIVE) Urine RBC 3-10/hpf (0-2) Urine WBC Packed/hpf (0-5) Urine Epithelial Cells Few/hpf (NONE-MOD) Urine Crystals Amorphous phosphates Urine Bacteria Moderate/hpf (NONE-FEW) Urine Hyaline Casts None/lpf (NONE) Urine Granular Casts None seen (NONE SEEN) Urine Waxy Casts None seen (NONE SEEN) Urine Red Blood Cell Casts None seen (NONE SEEN) Urine White Blood Cell Casts None seen (NONE SEEN) Urine Mucus None seen (None Seen) Urine Trichomonas None seen (NONE SEEN) Urine Yeast None (NONE SEEN) Urine Culture Reflexed Indicated Triglycerides Level 74mg/dL (0-149) Cholesterol Level 102mg/dL (100-199) LDL Cholesterol, Calculated 67.200mg/dL (0-99) VLDL Cholesterol 14.800mg/dL HDL Cholesterol 20mg/dL (>39) Cholesterol/HDL Ratio 5.10 (0.0-4.4) Test 05/23/16 03:06 05/23/16 13:00 05/23/16 14:45 05/24/16 04:00 Lactic Acid Level 0.7mmol/L (0.4-2.0) Hold Urine Received (Received) Ammonia 39ug/dL (18-53) Thyroid Stimulating Hormone (TSH) 3.030uIU/mL (0.450-4.500) Phosphorus Level 3.2mg/dL (2.5-4.9) Prealbumin 5mg/dL (20-40) Test 05/26/16 06:29 05/26/16 12:15 White Blood Count 6.1th/mm3 (3.8-10.1) Red Blood Count 4.18mil/mm3 (4.40-5.80) Hemoglobin 11.5g/dL (13.8-17.2) Hematocrit 36.3% (41.0-50.0) Mean Corpuscular Volume 86.8fL (81-100) Mean Corpuscular Hemoglobin 27.5pg (27.0-35.0) Mean Corpuscular Hemoglobin Concent 31.7% (32.0-37.0) Red Cell Distribution Width 14.6% (12.3-15.4) Platelet Count 245bil/L (150-400) Neutrophils (%) (Auto) 68.3% (40-74) Lymphocytes (%) (Auto) 8.9% (14-46) Monocytes (%) (Auto) 15.2% (4-12) Eosinophils (%) (Auto) 6.9% (0-5) Basophils (%) (Auto) 0.2% (0-3) Total Bilirubin 0.7mg/dL (0.0-1.2) Aspartate Amino Transf (AST/SGOT) 25U/L (0-50) Alanine Aminotransferase (ALT/SGPT) 11U/L (0-44) Alkaline Phosphatase 148U/L (25-160) Total Protein 5.6g/dL (6.4-8.4) Albumin 2.6g/dL (3.4-5.0) Procalcitonin 0.20ng/mL (0.00-0.08) Sodium Level 137mEq/L (134-144) Potassium Level 3.7mEq/L (3.5-5.2) Chloride Level 97mEq/L (97-108) Carbon Dioxide Level 26mmol/L (18-29) Blood Urea Nitrogen 10mg/dL (8-27) Creatinine 1.01mg/dL (0.76-1.27) Estimat Glomerular Filtration Rate 76mL/min (>59) Glucose Level 100mg/dL (60-99) Calcium Level 9.1mg/dL (8.5-10.1) Magnesium Level 2.4mg/dL (1.6-2.6) Microbiology Results Sputum negative, MRSA negative, strep pneumo urine antigen negative, blood negative to date, influenza screen negative, respiratory viral PCR negative. Urine showed mixed urogenital cristy. Discharge Medications Discharge Medications Ciprofloxacin (Cipro) 500 Mg Tablet 500 MG PO BID Prescribed by: PAT MOORE, Citalopram (Citalopram) 40 Mg Tablet 40 MG PO QAPraveena (Reported) Cyanocobalamin (Vitamin B-12) (Vitamin B-12) 2,000 Mcg Tablet 2,000 MCG PO DAILY (Reported) Potassium Chloride (Potassium Chloride) 20 Meq Tab.er.prt 20 MEQ PO DAILY TAKE WITH FOOD Prescribed by: PAT MOORE, DO Additional med instructions During this hospitalization you were started on new medication. Please follow these medication instructions unless otherwise directed by your physician. Note that your medication regimen may continue to be changed by your physician. New medication: -Ciprofloxacin 500mg. Take one tablet by mouth twice daily until June 03, 2016. Continue your other home medications. Take the medications as directed. -Potassium chloride 20mEq daily -Citalopram 40mg daily Followup Plan Disposition: home Follow-up plan You should follow up with Urology in about 2 weeks. Go to your scheduled appointment with your oncologist on 06/04/2016. You should follow up with your primary care physician in about one week to discuss this hospitalization and to review your electrolytes. Discharge Diet: Heart Healthy, Diabetic Discharge Activity: Home Health Phyical Therapy Patient Instructions During this hospitalization you were treated with antibiotics and a stent for an obstructing ureteral stone and complicated urinary tract infection. You should continue to take the prescribed antibiotic, ciprofloxacin, as instructed above. You will need to follow up with Urology to have the stone addressed. Follow-up Provider: Shalom Noel MD Follow-up with PCP in: 1 week Provider: Suzette Guevara MD Follow-up in: 2 weeks Time spent 40 minutes Attending Statement The patient was seen and examined together with Dr. Saxena on 05/26/2016 and I agree with the discharge summary as outlined in the note above. copies to: Shalom Noel MD; Suzette Guevara MD, GILES A DO May 26, 2016 17:34 Michael Torrez MD May 26, 2016 20:50
== END 2016-05-26 15:00 | disposition home health service (06) | DRG 871 ==
LOC: SED 14:07 → PCC 17:04 → CCU 17:46 → PCC 05-22 17:00
PROVIDERS: ADMIT Internal Medicine; ATTEND Internal Medicine
PROC: 0T7D8ZZ Dilation of Urethra, Via Natural or Artificial Opening Endoscopic (ICD-10-PCS; 2016-05-20)
PROC: BT1F1ZZ Fluoroscopy of Left Kidney, Ureter and Bladder using Low Osmolar Contrast (ICD-10-PCS; 2016-05-20)
PROC: 0T9B70Z Drainage of Bladder with Drainage Device, Via Natural or Artificial Opening (ICD-10-PCS; 2016-05-20)
PROC: 4A033R1 Measurement of Arterial Saturation, Peripheral, Percutaneous Approach (ICD-10-PCS; 2016-05-20)
PROC: 0T778DZ Dilation of Left Ureter with Intraluminal Device, Via Natural or Artificial Opening Endoscopic (ICD-10-PCS; principal; 2016-05-20 19:00)
DX: A41.9 Sepsis, unspecified organism (principal); G93.40 Encephalopathy, unspecified; J96.01 Acute respiratory failure with hypoxia; J18.9 Pneumonia, unspecified organism; N39.0 Urinary tract infection, site not specified; N17.9 Acute kidney failure, unspecified; N13.2 Hydronephrosis with renal and ureteral calculous obstruction; Z68.43 Body mass index [BMI] 50.0-59.9, adult; E87.1 Hypo-osmolality and hyponatremia; C34.11 Malignant neoplasm of upper lobe, right bronchus or lung; E87.2 Acidosis; J06.9 Acute upper respiratory infection, unspecified; E11.9 Type 2 diabetes mellitus without complications; E66.01 Morbid (severe) obesity due to excess calories; F32.9 Major depressive disorder, single episode, unspecified; G47.33 Obstructive sleep apnea (adult) (pediatric); Z87.891 Personal history of nicotine dependence; I71.4 Abdominal aortic aneurysm, without rupture; Z92.3 Personal history of irradiation; I49.5 Sick sinus syndrome; R65.20 Severe sepsis without septic shock; B96.4 Proteus (mirabilis) (morganii) as the cause of diseases classified elsewhere; E87.6 Hypokalemia